=== PATIENT | female | born 1955 | race Caucasian/White ===

== ENCOUNTER 2020-05-15 07:34 | Outpatient (REF) | payer MEDICARE, MEDICAID, SELFPAY ==
[2020-05-15 08:37] LABS: MANUAL DIFF FLAG NO
[2020-05-15 08:42] LABS: Basophils Absolute Auto 0.1 X10*3/uL (0.0-0.2); Eosinophils Absolute Auto 0.4 X10*3/uL (0.0-0.4); Eosinophils Percent Auto 5.7 % (0-4); Hematocrit 41.5 % (37-47); Hemoglobin 13.3 g/dl (12.0-16.0); Imm Gran Abs Auto 0.01 X10*3/uL (0.00-0.03); Imm Gran Pct Auto 0.1 % (0.0-0.4); Lymphocytes Percent Auto 27.6 % (20-40); Mean Corpuscular Hemoglobin 27.2 pg (27.0-33.0); Mean Corpuscular Volume 84.9 fL (80-98); Mean Platelet Volume 10.8 fL (9.4-12.3); Monocytes Absolute Auto 0.7 X10*3/uL (0.1-1.2); Monocytes Percent Auto 9.4 % (2-11); Neutrophils Absolute Auto 4.1 X10*3/uL (2.0-8.3); Neutrophils Percent Auto 56.2 % (45-73); Platelet Count 333 X10*3/uL (160-400); Red Blood Count 4.89 X10*6/uL (4.20-5.50); Red Cell Distribution Width 13.7 % (11.0-16.0); White Blood Count 7.2 X10*3/uL (4.8-10.8)
[2020-05-15 09:14] LABS: Alanine Aminotransferase 14 U/L (0-31); Albumin Level 4.1 g/dL (3.5-5.0); Alkaline Phosphatase 132 U/L (39-117); Anion Gap 11 (12-20); Aspartate Amino Transferase 21 U/L (5-31); Bilirubin Total 0.4 mg/dL (0.0-1.0); Blood Urea Nitrogen 23 mg/dL (9-16); Calcium 9.3 mg/dL (8.4-10.2); Carbon Dioxide 32 mmol/L (22-29); Chloride 104 mmol/L (96-108); Cholesterol 180 mg/dL; Estimated Glomerular Filt Rate > 60; Glucose Fasting 104 mg/dL (60-99); HDL Cholesterol 56 mg/dL; LDL Cholesterol Calculated 95 mg/dl; Potassium 4.6 mmol/l (3.3-5.1); Sodium 142 mmol/L (135-145); Triglycerides 145 mg/dL
[2020-05-15 09:57] LABS: Folate 8.7 ng/mL (> or = 4.0); Vitamin B12 462 pg/mL (200-900)
== END 2020-05-15 07:35 | disposition home or self-care (01) ==
LOC: HO.LAB 07:34
PROVIDERS: Visit Provider Internal Medicine
DX: E78.00 Pure hypercholesterolemia, unspecified (principal); D51.0 Vitamin B12 deficiency anemia due to intrinsic factor deficiency
CPT/HCPCS: 36415; 80053; 80061; 82607; 82746; 85025

== ENCOUNTER 2020-05-23 07:40 | Outpatient (REF) | payer MEDICARE, MEDICAID, SELFPAY ==
[2020-05-23 09:40] LABS: MANUAL DIFF FLAG NO
[2020-05-23 09:41] LABS: Basophils Absolute Auto 0.1 X10*3/uL (0.0-0.2); Basophils Percent Auto 1.1 % (0-2); Eosinophils Absolute Auto 0.3 X10*3/uL (0.0-0.4); Eosinophils Percent Auto 4.1 % (0-4); Hematocrit 40.7 % (37-47); Hemoglobin 12.9 g/dl (12.0-16.0); Imm Gran Abs Auto 0.02 X10*3/uL (0.00-0.03); Imm Gran Pct Auto 0.2 % (0.0-0.4); Lymphocytes Absolute Auto 1.5 X10*3/uL (1.2-4.9); Lymphocytes Percent Auto 18.3 % (20-40); Mean Corpuscular HGB Conc 31.7 g/dl (31.0-35.0); Mean Corpuscular Volume 85.3 fL (80-98); Mean Platelet Volume 11.3 fL (9.4-12.3); Monocytes Absolute Auto 0.7 X10*3/uL (0.1-1.2); Monocytes Percent Auto 8.5 % (2-11); Neutrophils Absolute Auto 5.5 X10*3/uL (2.0-8.3); Neutrophils Percent Auto 67.8 % (45-73); Platelet Count 290 X10*3/uL (160-400); Red Blood Count 4.77 X10*6/uL (4.20-5.50); Red Cell Distribution Width 13.6 % (11.0-16.0); White Blood Count 8.1 X10*3/uL (4.8-10.8)
[2020-05-23 10:19] LABS: Alanine Aminotransferase 21 U/L (0-31); Anion Gap 14 (12-20); Aspartate Amino Transferase 26 U/L (5-31); Carbon Dioxide 27 mmol/L (22-29); Chloride 103 mmol/L (96-108); Estimated Glomerular Filt Rate > 60; Potassium 4.2 mmol/l (3.3-5.1); Sodium 140 mmol/L (135-145)
[2020-05-23 10:49] LABS: HIV AB/AG Nonreactive (Nonreactive); HIV Num 1 0.11 S/CO (0.00-0.99); ~HepC Num1 0.23 S/CO (0.00-0.79); ~Hepatitis C Antibody Nonreactive (Nonreactive)
[2020-05-23 10:54] LABS: Hepatitis B Surface Antigen Negative (Negative)
[2020-05-23 11:47] LABS: HBS Num1 9.99 mIU/mL (0-7.99)
[2020-05-23 12:02] LABS: HBS Num2 10.76 mIU/mL (0-7.99); HBS Num3 9.99 mIU/mL (0-7.99); ~Hepatitis B Surface Antibody GRAYZONE (Nonreactive)
== END 2020-05-23 07:41 | disposition home or self-care (01) ==
LOC: HO.LAB 07:40
PROVIDERS: PCP Internal Medicine; Visit Provider Internal Medicine Infectious Disease
DX: Z11.3 Encounter for screening for infections with a predominantly sexual mode of transmission (principal); Z11.4 Encounter for screening for human immunodeficiency virus [HIV]; Z11.1 Encounter for screening for respiratory tuberculosis; Z13.29 Encounter for screening for other suspected endocrine disorder
CPT/HCPCS: 36415; 80051; 82565; 84450; 84460; 85025; 86706; 86803; 87116; 87340; 87389

== ENCOUNTER → 2020-06-02 14:23 | Outpatient (REF) | payer MEDICARE, MEDICAID, SELFPAY ==
--- NOTE | 2020-06-02 14:37 | ECG_ITS ---
Test Reason : [facility]IOT[facility] Blood Pressure : / mmHG Vent. Rate : 064 BPM Atrial Rate : 064 BPM P-R Int : 160 ms QRS Dur : 082 ms QT Int : 396 ms P-R-T Axes : 073 052 062 degrees QTc Int : 408 ms Normal sinus rhythm Normal ECG When compared with ECG of 23-JAN-2018 07:59, No significant change was found Referred By: Lizz Courtney Electronically Signed By:PAUL ALEX MD
== END ==
LOC: HO.CARD 14:23
PROVIDERS: PCP Internal Medicine; Visit Provider Internal Medicine Infectious Disease
DX: Z13.6 Encounter for screening for cardiovascular disorders (principal); Z79.2 Long term (current) use of antibiotics
CPT/HCPCS: 93005

== ENCOUNTER 2020-07-12 09:31 | Outpatient (REF) | payer MEDICARE, MEDICAID, SELFPAY ==
[2020-07-12 10:06] LABS: MANUAL DIFF FLAG NO
[2020-07-12 10:09] LABS: Basophils Absolute Auto 0.1 X10*3/uL (0.0-0.2); Basophils Percent Auto 0.9 % (0-2); Eosinophils Absolute Auto 0.5 X10*3/uL (0.0-0.4); Eosinophils Percent Auto 8.5 % (0-4); Hematocrit 42.3 % (37-47); Hemoglobin 13.5 g/dl (12.0-16.0); Imm Gran Abs Auto 0.01 X10*3/uL (0.00-0.03); Imm Gran Pct Auto 0.2 % (0.0-0.4); Lymphocytes Absolute Auto 1.6 X10*3/uL (1.2-4.9); Lymphocytes Percent Auto 27.8 % (20-40); Mean Corpuscular HGB Conc 31.9 g/dl (31.0-35.0); Mean Corpuscular Hemoglobin 26.8 pg (27.0-33.0); Mean Corpuscular Volume 84.1 fL (80-98); Mean Platelet Volume 10.7 fL (9.4-12.3); Monocytes Absolute Auto 0.6 X10*3/uL (0.1-1.2); Monocytes Percent Auto 9.7 % (2-11); Neutrophils Percent Auto 52.9 % (45-73); Platelet Count 276 X10*3/uL (160-400); Red Blood Count 5.03 X10*6/uL (4.20-5.50); Red Cell Distribution Width 13.2 % (11.0-16.0); White Blood Count 5.7 X10*3/uL (4.8-10.8)
[2020-07-12 10:29] LABS: Alanine Aminotransferase 16 U/L (0-31); Aspartate Amino Transferase 24 U/L (5-31); Estimated Glomerular Filt Rate > 60; Glucose Fasting 100 mg/dL (60-99)
[2020-07-12 10:49] LABS: Thyroid Stimulating Hormone 1.98 uIU/mL (0.32-4.0)
== END 2020-07-12 09:32 | disposition home or self-care (01) ==
LOC: HO.LAB 09:31
PROVIDERS: PCP Internal Medicine; Visit Provider Internal Medicine Infectious Disease
DX: A31.0 Pulmonary mycobacterial infection (principal)
CPT/HCPCS: 36415; 82565; 82947; 84443; 84450; 84460; 85025

== ENCOUNTER 2020-07-21 14:58 | Outpatient (REF) | payer MEDICARE, MEDICAID, SELFPAY | END 2020-07-21 14:59 | disposition home or self-care (01) | LOC: HO.LAB 14:58 | PROVIDERS: PCP Internal Medicine; Visit Provider Internal Medicine Infectious Disease | DX: A31.0 Pulmonary mycobacterial infection (principal) | CPT/HCPCS: 87116 ==

== ENCOUNTER 2020-08-08 09:51 | Outpatient (REF) | payer MEDICARE, MEDICAID, SELFPAY | END 2020-08-08 09:52 | disposition home or self-care (01) | LOC: HO.LAB 09:51 | PROVIDERS: PCP Internal Medicine; Visit Provider Internal Medicine | DX: Z20.822 Contact with and (suspected) exposure to COVID-19 (principal) | CPT/HCPCS: 36415; C9803; U0003 ==

== ENCOUNTER 2020-09-13 08:20 | Outpatient (REF) | payer MEDICARE, MEDICAID, SELFPAY ==
[2020-09-13 11:03] LABS: Alanine Aminotransferase 110 U/L (0-31); Aspartate Amino Transferase 69 U/L (5-31); Estimated Glomerular Filt Rate > 60
[2020-09-15 04:25] LABS: Vitamin B12 449 pg/mL (200-900)
== END 2020-09-13 08:21 | disposition home or self-care (01) ==
LOC: HO.LAB 08:20
PROVIDERS: PCP Internal Medicine; Visit Provider Internal Medicine Infectious Disease
DX: A31.0 Pulmonary mycobacterial infection (principal)
CPT/HCPCS: 36415; 82565; 82607; 84450; 84460

== ENCOUNTER 2020-10-09 07:39 | Outpatient (REF) | payer MEDICARE, MEDICAID, SELFPAY ==
[2020-10-09 09:04] LABS: Basophils Absolute Auto 0.1 X10*3/uL (0.0-0.2); Eosinophils Absolute Auto 0.3 X10*3/uL (0.0-0.4); Hematocrit 41.8 % (37-47); Hemoglobin 13.5 g/dl (12.0-16.0); Imm Gran Abs Auto 0.01 X10*3/uL (0.00-0.03); Imm Gran Pct Auto 0.2 % (0.0-0.4); Lymphocytes Absolute Auto 0.5 X10*3/uL (1.2-4.9); Lymphocytes Percent Auto 9.8 % (20-40); MANUAL DIFF FLAG SCAN; Mean Corpuscular HGB Conc 32.3 g/dl (31.0-35.0); Mean Corpuscular Hemoglobin 26.4 pg (27.0-33.0); Mean Corpuscular Volume 81.6 fL (80-98); Monocytes Absolute Auto 0.5 X10*3/uL (0.1-1.2); Monocytes Percent Auto 10.4 % (2-11); Neutrophils Absolute Auto 3.5 X10*3/uL (2.0-8.3); Neutrophils Percent Auto 71.6 % (45-73); Platelet Count 326 X10*3/uL (160-400); Red Blood Count 5.12 X10*6/uL (4.20-5.50); Red Cell Distribution Width 14.6 % (11.0-16.0); SCAN SMEAR FLAG 1; White Blood Count 4.9 X10*3/uL (4.8-10.8)
[2020-10-09 09:36] LABS: SLIDE REVIEW VERIFIED
[2020-10-09 09:45] LABS: Alanine Aminotransferase 19 U/L (0-31); Albumin Level 4.4 g/dL (3.5-5.0); Alkaline Phosphatase 143 U/L (39-117); Anion Gap 13 (12-20); Aspartate Amino Transferase 25 U/L (5-31); Bilirubin Total 0.8 mg/dL (0.0-1.0); Blood Urea Nitrogen 16 mg/dL (9-16); Calcium 9.1 mg/dL (8.4-10.2); Carbon Dioxide 28 mmol/L (22-29); Chloride 103 mmol/L (96-108); Cholesterol 172 mg/dL; Estimated Glomerular Filt Rate > 60; Glucose Fasting 102 mg/dL (60-99); HDL Cholesterol 51 mg/dL; LDL Cholesterol Calculated 84 mg/dl; Potassium 4.5 mmol/L (3.3-5.1); Sodium 139 mmol/L (135-145); Total Protein 7.3 g/dL (6.5-8.0); Triglycerides 185 mg/dL
[2020-10-09 10:21] LABS: Folate 11.5 ng/mL (> or = 4.0); Vitamin B12 437 pg/mL (200-900)
== END 2020-10-09 07:40 | disposition home or self-care (01) ==
LOC: HO.LAB 07:39
PROVIDERS: PCP Internal Medicine; Visit Provider Internal Medicine
DX: D51.0 Vitamin B12 deficiency anemia due to intrinsic factor deficiency (principal); E78.00 Pure hypercholesterolemia, unspecified; E78.5 Hyperlipidemia, unspecified
CPT/HCPCS: 36415; 80053; 80061; 82607; 82746; 85025

== ENCOUNTER 2020-12-02 06:52 | Outpatient (REF) | payer MEDICARE, MEDICAID, SELFPAY ==
[2020-12-02 07:33] LABS: MANUAL DIFF FLAG NO
[2020-12-02 07:44] LABS: Eosinophils Absolute Auto 0.1 X10*3/uL (0.0-0.4); Eosinophils Percent Auto 3.2 % (0-4); Hematocrit 41.8 % (37-47); Hemoglobin 13.4 g/dl (12.0-16.0); Imm Gran Abs Auto 0.01 X10*3/uL (0.00-0.03); Imm Gran Pct Auto 0.2 % (0.0-0.4); Lymphocytes Absolute Auto 1.2 X10*3/uL (1.2-4.9); Lymphocytes Percent Auto 29.4 % (20-40); Mean Corpuscular HGB Conc 32.1 g/dl (31.0-35.0); Mean Corpuscular Hemoglobin 26.4 pg (27.0-33.0); Mean Corpuscular Volume 82.4 fL (80-98); Mean Platelet Volume 10.4 fL (9.4-12.3); Monocytes Absolute Auto 0.5 X10*3/uL (0.1-1.2); Monocytes Percent Auto 12.8 % (2-11); Neutrophils Absolute Auto 2.2 X10*3/uL (2.0-8.3); Neutrophils Percent Auto 53.4 % (45-73); Platelet Count 295 X10*3/uL (160-400); Red Blood Count 5.07 X10*6/uL (4.20-5.50); Red Cell Distribution Width 14.6 % (11.0-16.0); White Blood Count 4.1 X10*3/uL (4.8-10.8)
[2020-12-02 07:53] LABS: Alanine Aminotransferase 19 U/L (0-31); Albumin Level 4.3 g/dL (3.5-5.0); Alkaline Phosphatase 110 U/L (39-117); Aspartate Amino Transferase 22 U/L (5-31); Bilirubin Total 0.4 mg/dL (0.0-1.0); Estimated Glomerular Filt Rate > 60; Phosphorus 3.7 mg/dL (2.7-4.5)
== END 2020-12-02 06:53 | disposition home or self-care (01) ==
LOC: HO.LAB 06:52
PROVIDERS: PCP Internal Medicine; Visit Provider Internal Medicine Infectious Disease
DX: A31.2 Disseminated mycobacterium avium-intracellulare complex (DMAC) (principal)
CPT/HCPCS: 36415; 82040; 82247; 82565; 84075; 84100; 84450; 84460; 85025

== ENCOUNTER 2021-01-20 11:28 | Outpatient (REF) | payer MEDICARE, MEDICAID, SELFPAY ==
[2021-01-21 08:46] LABS: Lyme Abs Screen <0.90 index
== END 2021-01-20 11:29 | disposition home or self-care (01) ==
LOC: HO.HMGCLDS 11:28
PROVIDERS: PCP Internal Medicine; Visit Provider Nurse Practitioner Family
DX: T14.8XXA Other injury of unspecified body region, initial encounter (principal); W57.XXXA Bitten or stung by nonvenomous insect and other nonvenomous arthropods, initial encounter
CPT/HCPCS: 36415; 86617; 86618

== ENCOUNTER 2021-02-13 06:50 | Outpatient (REF) | payer MEDICARE, MEDICAID, SELFPAY ==
[2021-02-13 07:37] LABS: MANUAL DIFF FLAG NO
[2021-02-13 07:42] LABS: Basophils Percent Auto 0.6 % (0-2); Eosinophils Absolute Auto 0.2 X10*3/uL (0.0-0.4); Eosinophils Percent Auto 6.2 % (0-4); Hematocrit 41.1 % (37-47); Hemoglobin 13.5 g/dl (12.0-16.0); Imm Gran Abs Auto 0.02 X10*3/uL (0.00-0.03); Imm Gran Pct Auto 0.6 % (0.0-0.4); Lymphocytes Absolute Auto 1.2 X10*3/uL (1.2-4.9); Lymphocytes Percent Auto 34.9 % (20-40); Mean Corpuscular HGB Conc 32.8 g/dl (31.0-35.0); Mean Corpuscular Hemoglobin 26.6 pg (27.0-33.0); Mean Corpuscular Volume 81.1 fL (80-98); Mean Platelet Volume 10.5 fL (9.4-12.3); Monocytes Absolute Auto 0.7 X10*3/uL (0.1-1.2); Monocytes Percent Auto 18.3 % (2-11); Neutrophils Absolute Auto 1.4 X10*3/uL (2.0-8.3); Neutrophils Percent Auto 39.4 % (45-73); Platelet Count 258 X10*3/uL (160-400); Red Blood Count 5.07 X10*6/uL (4.20-5.50); Red Cell Distribution Width 14.5 % (11.0-16.0); White Blood Count 3.6 X10*3/uL (4.8-10.8)
[2021-02-13 08:02] LABS: Alanine Aminotransferase 13 U/L (0-31); Albumin Level 4.4 g/dL (3.5-5.0); Alkaline Phosphatase 114 U/L (39-117); Anion Gap 12 (12-20); Aspartate Amino Transferase 27 U/L (5-31); Bilirubin Total 0.4 mg/dL (0.0-1.0); Blood Urea Nitrogen 18 mg/dL (9-16); Calcium 9.8 mg/dL (8.4-10.2); Carbon Dioxide 27 mmol/L (22-29); Chloride 106 mmol/L (96-108); Cholesterol 159 mg/dL; Estimated Glomerular Filt Rate > 60; Glucose Fasting 102 mg/dL (60-99); HDL Cholesterol 48 mg/dL; LDL Cholesterol Calculated 87 mg/dl; Potassium 4.4 mmol/L (3.3-5.1); Sodium 141 mmol/L (135-145); Total Protein 7.4 g/dL (6.5-8.0); Triglycerides 123 mg/dL
[2021-02-13 09:51] LABS: Folate 17.4 ng/mL (> or = 4.0); Vitamin B12 375 pg/mL (200-900)
== END 2021-02-13 06:51 | disposition home or self-care (01) ==
LOC: HO.LAB 06:50
PROVIDERS: PCP Internal Medicine; Visit Provider Internal Medicine
DX: E78.5 Hyperlipidemia, unspecified (principal); E78.00 Pure hypercholesterolemia, unspecified; D64.9 Anemia, unspecified; D51.0 Vitamin B12 deficiency anemia due to intrinsic factor deficiency
CPT/HCPCS: 36415; 80053; 80061; 82607; 82746; 85025

== ENCOUNTER 2021-03-24 13:43 | Outpatient (REF) | payer OTHER, MEDICAID, SELFPAY ==
--- NOTE | ~2021-03-24 | MM_ITS ---
EXAMINATION: MM SCREENING DIGITAL BREAST TOMOSYNTHESIS, BILATERAL CLINICAL INFORMATION: Screening. Asymptomatic. The lifetime risk of breast cancer based on the Tyrer-Cuzick Model is 9%. COMPARISON: Mammography: 03/18/2020, 10/20/2018, 10/06/2017, 09/23/2016, 09/22/2015 TECHNIQUE: Digital breast tomosynthesis is performed in both the craniocaudal and mediolateral oblique views along with computer-aided detection (CAD). Synthesized 2D images are generated from the tomosynthesis. FINDINGS: There are scattered areas of fibroglandular density (ACR BI-RADS breast composition Category b). Parenchymal pattern is similar to prior studies. There is no developing density or interval mass or architectural abnormality. There is a small stable parenchymal asymmetry central left breast on MLO view similar to the prior studies. The axilla and skin contours are unremarkable. MM/MM tomosynthesis screening BI IMPRESSION: No mammographic evidence of malignancy. ASSESSMENT: BI-RADS 2: Benign RECOMMENDATION: Routine annual mammography screening. This patient's information was entered into a reminder system with a target due date for their next mammogram.
== END 2021-03-24 13:44 | disposition home or self-care (01) ==
LOC: HO.MAMMO 13:43
PROVIDERS: Visit Provider Internal Medicine
DX: Z12.31 Encounter for screening mammogram for malignant neoplasm of breast (principal)
CPT/HCPCS: 77063; 77067

== ENCOUNTER 2021-04-14 08:47 | Outpatient (REF) | payer OTHER, MEDICAID, SELFPAY ==
[2021-04-17 20:52] LABS: HPV mRNA E6/E7 rflx Not Detected (Not Detected)
== END 2021-04-14 08:48 | disposition home or self-care (01) ==
LOC: HO.LAB 08:47
PROVIDERS: Visit Provider Advanced Practice Midwife
DX: Z01.411 Encounter for gynecological examination (general) (routine) with abnormal findings (principal); Z11.51 Encounter for screening for human papillomavirus (HPV); B36.9 Superficial mycosis, unspecified
CPT/HCPCS: 87624; 88142

== ENCOUNTER 2021-06-24 07:36 | Outpatient (REF) | payer MEDICARE, MEDICAID, SELFPAY ==
[2021-06-24 08:41] LABS: Alanine Aminotransferase 18 U/L (0-31); Albumin Level 4.3 g/dL (3.5-5.0); Alkaline Phosphatase 126 U/L (39-117); Anion Gap 11 (12-20); Aspartate Amino Transferase 23 U/L (5-31); Bilirubin Total 0.5 mg/dL (0.0-1.0); Blood Urea Nitrogen 13 mg/dL (9-16); Calcium 9.9 mg/dL (8.4-10.2); Carbon Dioxide 29 mmol/L (22-29); Chloride 106 mmol/L (96-108); Cholesterol 171 mg/dL; Estimated Glomerular Filt Rate > 60; Glucose Fasting 112 mg/dL (60-99); HDL Cholesterol 51 mg/dL; LDL Cholesterol Calculated 91 mg/dl; Potassium 4.2 mmol/L (3.3-5.1); Sodium 142 mmol/L (135-145); Total Protein 7.3 g/dL (6.5-8.0); Triglycerides 147 mg/dL
[2021-06-29 14:51] LABS: Vitamin D 25-OH, D2 <4 ng/mL; Vitamin D 25-OH, D3 35 ng/mL; Vitamin D 25-OH, Total 35 ng/mL (30-100)
== END 2021-06-24 07:37 | disposition home or self-care (01) ==
LOC: HO.LAB 07:36
PROVIDERS: Visit Provider Internal Medicine
DX: E78.5 Hyperlipidemia, unspecified (principal); E55.9 Vitamin D deficiency, unspecified; K21.9 Gastro-esophageal reflux disease without esophagitis
CPT/HCPCS: 36415; 80053; 80061; 82306

== ENCOUNTER 2021-12-16 09:36 | Outpatient (REF) | payer OTHER, MEDICAID, SELFPAY ==
[2021-12-16 10:22] LABS: COVID-19 Test Negative (Negative); IDNOW Serial# 08D9AD1C
== END 2021-12-16 09:37 | disposition home or self-care (01) ==
LOC: HO.LAB 09:36
PROVIDERS: Visit Provider Internal Medicine
DX: Z20.822 Contact with and (suspected) exposure to COVID-19 (principal)
CPT/HCPCS: 87635; C9803

== ENCOUNTER 2022-01-11 06:29 | Outpatient (REF) | payer OTHER, SELFPAY ==
[2022-01-11 06:54] LABS: MANUAL DIFF FLAG NO
[2022-01-11 07:35] LABS: Basophils Absolute Auto 0.1 X10*3/uL (0.0-0.2); Eosinophils Absolute Auto 0.5 X10*3/uL (0.0-0.4); Eosinophils Percent Auto 6.5 % (0-4); Hematocrit 40.3 % (37.0-47.0); Hemoglobin 12.7 g/dl (12.0-16.0); Imm Gran Abs Auto 0.02 X10*3/uL (0.00-0.03); Imm Gran Pct Auto 0.3 % (0.0-0.4); Lymphocytes Percent Auto 27.6 % (20-40); Mean Corpuscular HGB Conc 31.5 g/dl (31.0-35.0); Mean Corpuscular Hemoglobin 26.1 pg (27.0-33.0); Mean Corpuscular Volume 82.9 fL (80.0-98.0); Mean Platelet Volume 10.6 fL (9.4-12.3); Monocytes Absolute Auto 0.5 X10*3/uL (0.1-1.2); Monocytes Percent Auto 7.3 % (2-11); Neutrophils Absolute Auto 4.1 x10*3/uL (2.0-8.3); Neutrophils Percent Auto 57.3 % (45-73); Platelet Count 332 X10*3/uL (160-400); Red Blood Count 4.86 X10*6/uL (4.20-5.50); Red Cell Distribution Width 13.9 % (11.0-16.0); White Blood Count 7.2 X10*3/uL (4.8-10.8)
[2022-01-11 08:28] LABS: Alanine Aminotransferase 14 U/L (0-31); Albumin Level 4.2 g/dL (3.5-5.0); Alkaline Phosphatase 121 U/L (39-117); Anion Gap 12 (12-20); Aspartate Amino Transferase 20 U/L (5-31); Bilirubin Total 0.5 mg/dL (0.0-1.0); Blood Urea Nitrogen 18 mg/dL (9-16); Calcium 9.5 mg/dL (8.4-10.2); Carbon Dioxide 27 mmol/L (22-29); Chloride 105 mmol/L (96-108); Cholesterol 152 mg/dL; Estimated Glomerular Filt Rate > 60; Glucose Fasting 97 mg/dL (60-99); HDL Cholesterol 47 mg/dL; LDL Cholesterol Calculated 78 mg/dl; Potassium 4.4 mmol/L (3.3-5.1); Sodium 140 mmol/L (135-145); Total Protein 7.1 g/dL (6.5-8.0); Triglycerides 137 mg/dL
[2022-01-15 15:26] LABS: Vitamin D 25-OH, D2 <4 ng/mL; Vitamin D 25-OH, D3 38 ng/mL; Vitamin D 25-OH, Total 38 ng/mL (30-100)
== END 2022-01-11 06:30 | disposition home or self-care (01) ==
LOC: HO.LAB 06:29
PROVIDERS: PCP Internal Medicine; Visit Provider Internal Medicine
DX: E55.9 Vitamin D deficiency, unspecified (principal); D72.819 Decreased white blood cell count, unspecified; J43.1 Panlobular emphysema; E78.5 Hyperlipidemia, unspecified
CPT/HCPCS: 36415; 80053; 80061; 82306; 85025

== ENCOUNTER 2022-03-26 10:18 | Outpatient (REF) | payer OTHER, SELFPAY ==
--- NOTE | ~2022-03-26 | MM_ITS ---
EXAMINATION: MM SCREENING DIGITAL BREAST TOMOSYNTHESIS, BILATERAL CLINICAL INFORMATION: Screening. Asymptomatic. The lifetime risk of breast cancer based on the Tyrer-Cuzick Model is 9%. COMPARISON: Mammography: 03/24/2021, 03/18/2020, 10/20/2018 TECHNIQUE: Digital breast tomosynthesis is performed in both the craniocaudal and mediolateral oblique views along with computer-aided detection (CAD). Synthesized 2D images are generated from the tomosynthesis. FINDINGS: There are scattered areas of fibroglandular density (ACR BI-RADS breast composition Category b). There are no significant masses, abnormal calcifications, or other abnormalities. Parenchymal pattern is similar to prior studies. There is no developing density or architectural abnormality. The axilla and skin contours are unremarkable. No significant changes. MM/MM tomosynthesis screening BI IMPRESSION: No mammographic evidence of malignancy. ASSESSMENT: BI-RADS 1: Negative RECOMMENDATION: Routine annual mammography screening. This patient's information was entered into a reminder system with a target due date for their next mammogram.
== END 2022-03-26 10:19 | disposition home or self-care (01) ==
LOC: HO.MAMMO 10:18
PROVIDERS: PCP Internal Medicine; Visit Provider Internal Medicine
DX: Z12.31 Encounter for screening mammogram for malignant neoplasm of breast (principal)
CPT/HCPCS: 77063; 77067

== ENCOUNTER 2022-05-07 10:42 | Outpatient (REF) | payer OTHER, MEDICAID, SELFPAY ==
--- NOTE | ~2022-05-07 | MM_ITS ---
EXAMINATION: BONE DENSITOMETRY CLINICAL INDICATION: Menopause. COMPARISON: Baseline BD dated 10/06/2017. TECHNIQUE: Using a [employer] DXA System (software version: 13.1) manufactured by [employer], dual-energy x-ray absorptiometry was performed of the lumbar spine and left hip. The images are of good technical quality. Summary results are attached. FINDINGS: AP SPINE L1-L4 (excluding L3): The data of L1-L4 has been changed to exclude the L3 vertebral body, because degenerative changes at this level may cause overestimation of lumbar spine density. Current: BMD 1.258 g/cm2, Z-score 2.3, T-score 0.7, normal, 2.0% increase from baseline (<5% change is not significant). Baseline: BMD 1.233 g/cm2. LEFT FEMUR, NECK: Current: BMD 0.934 g/cm2, Z-score 0.7, T-score -0.8, normal. Baseline: BMD 1.085 g/cm2. LEFT FEMUR, TOTAL: Current: BMD 0.996 g/cm2, Z-score 1.2, T-score -0.1, normal, 2.8% increase from baseline (<5% change is not significant). Baseline: BMD 0.969 g/cm2. IDENTIFIED RISK FACTORS: Menopause. HISTORY OF FRACTURE: None listed. MEDICATIONS: Calcium, vitamin D. MM/XR DEXA axial skeleton IMPRESSION: 1. DIAGNOSIS: Normal bone density based on the lowest T-score value of -0.8 in the femoral neck applying World Health Organization criteria. 2. 10-YEAR FRACTURE RISK PREDICTION, FRAX: According to the guidelines, FRAX calculation should only be performed on patients in the osteopenia bone density category. Therefore, FRAX was not performed on this patient. 3. Treatment Recommendations: NOF guidelines recommend consideration for treatment in postmenopausal women and men age 50 and older presenting with the following: -A hip or vertebral (clinical or morphometric) fracture. -T-score less than or equal to -2.5 at the femoral neck or spine after appropriate evaluation to exclude secondary causes. -Low bone mass at the hip or spine and a 10-year fracture probability by FRAX of greater than or equal to 3% for hip fracture or greater than or equal to 20% for major osteoporotic fracture based on the [place] adapted WHO algorithm. 4. Other Recommendations: All treatment decisions require clinical judgment and consideration of individual patient factors, including patient preferences, comorbidities, previous drug use, risk factors not captured in the FRAX model (e.g. frailty, falls, vitamin D deficiency, increased bone turnover, interval significant decline in bone density) and possible under or overestimation of fracture risk by FRAX. FUTURE SCAN RECOMMENDATION: People with diagnosed cases of osteoporosis or at high risk for fracture should have regular bone mineral density tests. For patients eligible for Medicare, routine testing is allowed once every 2 years. The testing frequency can be increased to one year for patients who have rapidly progressing disease, those who are receiving or discontinuing medical therapy to restore bone mass, or have additional risk factors.
== END 2022-05-07 10:43 | disposition home or self-care (01) ==
LOC: HO.MAMMO 10:42
PROVIDERS: PCP Internal Medicine; Visit Provider Internal Medicine
DX: Z13.820 Encounter for screening for osteoporosis (principal); Z78.0 Asymptomatic menopausal state
CPT/HCPCS: 77080

== ENCOUNTER 2022-12-22 08:32 | Outpatient (REF) | payer MEDICARE, MEDICAID, SELFPAY ==
[2022-12-22 10:43] LABS: Alanine Aminotransferase 13 U/L (0-31); Albumin Level 4.1 g/dL (3.5-5.0); Alkaline Phosphatase 114 U/L (39-117); Anion Gap 12 (12-20); Aspartate Amino Transferase 21 U/L (5-31); Bilirubin Total 0.5 mg/dL (0.0-1.0); Blood Urea Nitrogen 17 mg/dL (9-16); Calcium 9.6 mg/dL (8.4-10.2); Carbon Dioxide 26 mmol/L (22-29); Chloride 108 mmol/L (96-108); Cholesterol 152 mg/dL; Estimated Glomerular Filt Rate > 60; Glucose Fasting 96 mg/dL (60-99); HDL Cholesterol 45 mg/dL; LDL Cholesterol Calculated 80 mg/dl; Potassium 3.9 mmol/L (3.3-5.1); Sodium 142 mmol/L (135-145); Total Protein 6.9 g/dL (6.5-8.0); Triglycerides 138 mg/dL
[2022-12-22 11:14] LABS: Folate 11.6 ng/mL (> or = 4.0); Vitamin B12 558 pg/mL (200-900); Vitamin D 25-OH Total 46.6 ng/mL (>30)
== END 2022-12-22 08:33 | disposition home or self-care (01) ==
LOC: HO.LAB 08:32
PROVIDERS: PCP Internal Medicine; Visit Provider Internal Medicine
DX: E78.5 Hyperlipidemia, unspecified (principal); E53.8 Deficiency of other specified B group vitamins; E55.9 Vitamin D deficiency, unspecified; E78.00 Pure hypercholesterolemia, unspecified
CPT/HCPCS: 36415; 80053; 80061; 82306; 82607; 82746

== ENCOUNTER 2023-01-07 09:27 | Outpatient (REF) | payer MEDICARE, MEDICAID, SELFPAY ==
--- NOTE | ~2023-01-07 | XR_ITS ---
EXAMINATION: XR KNEE, LEFT CLINICAL INFORMATION: Pain COMPARISON: None available. TECHNIQUE: Two views of the left knee. FINDINGS: Bone alignment is normal. No fracture or dislocation. Normal femoral tibial joints. Osteophyte patellofemoral joint. Osteophyte quadriceps tendon insertion to the patella. Small joint effusion. XR/XR knee LT 2V IMPRESSION: Degenerative changes of the patella.
--- NOTE | ~2023-01-07 | XR_ITS ---
EXAMINATION: XR ANKLE, LEFT CLINICAL INFORMATION: Pain COMPARISON: None available. TECHNIQUE: AP, lateral, and mortise views of the left ankle. FINDINGS: Bone alignment is normal. No fracture or dislocation. Normal ankle mortise. Small calcaneal spur at the Achilles tendon insertion. Soft tissues are otherwise normal. XR/XR ankle LT 2V IMPRESSION: No acute findings.
== END 2023-01-07 09:28 | disposition home or self-care (01) ==
LOC: HO.XRAY 09:27
PROVIDERS: PCP Internal Medicine; Visit Provider Internal Medicine
DX: M25.562 Pain in left knee (principal); M25.572 Pain in left ankle and joints of left foot
CPT/HCPCS: 73560; 73600

== ENCOUNTER 2023-02-11 10:39 | Outpatient (REF) | payer MEDICARE, MEDICAID, SELFPAY ==
--- NOTE | ~2023-02-11 | XR_ITS ---
EXAMINATION: XR KNEE AP STANDING CLINICAL INFORMATION: Pain COMPARISON: 01/07/23 TECHNIQUE: AP bilateral standing view of the knees was obtained. Patellar view left knee FINDINGS: No acute fracture, subluxation or focal lesion. There is mild narrowing of the medial compartment on the right. There are proliferative osteophytes on the right involving all 3 compartments. There are some osteophytes involving the medial and lateral margin of the left patella. XR/XR knee standing BI IMPRESSION: No acute fracture or subluxation. Mild osteoarthritis.
--- NOTE | ~2023-02-11 | XR_ITS ---
EXAMINATION: XR KNEE AP STANDING CLINICAL INFORMATION: Pain COMPARISON: 01/07/23 TECHNIQUE: AP bilateral standing view of the knees was obtained. Patellar view left knee FINDINGS: No acute fracture, subluxation or focal lesion. There is mild narrowing of the medial compartment on the right. There are proliferative osteophytes on the right involving all 3 compartments. There are some osteophytes involving the medial and lateral margin of the left patella. XR/XR knee LT 1V IMPRESSION: No acute fracture or subluxation. Mild osteoarthritis.
== END 2023-02-11 10:40 | disposition home or self-care (01) ==
LOC: HO.HOSX 10:39
PROVIDERS: Visit Provider Physician Assistant
DX: M17.12 Unilateral primary osteoarthritis, left knee (principal)
CPT/HCPCS: 73560; 73565; 99202

== ENCOUNTER 2023-02-11 10:41 | Outpatient (AMB) | payer MEDICARE, MEDICAID, SELFPAY ==
--- NOTE | 2023-02-11 10:56 | MHC.OFFVIS ---
Intake Intake Visit Reasons: New pt - B/L knee pain Intake Note: Gabbie is a 67 year old female who presents today as a new patient with complaints of b/l knee pain. Patient reports her left knee is worse than the right. Hx of injections with no relief. Hx of PT with no relief. She states her pain is more focused on the knee cap. Pain is worse when using stairs, standing and walking. Allergies No Known Allergies Allergy (Verified 02/11/23 11:00) HPI New pt - B/L knee pain HPI Details 67-year-old female, who is Albanian speaking, presents in the office today, as a new patient, for an evaluation of bilateral knee pain. The patient reports her left knee is worse then her right knee. She states her pain is located more on the knee cap. She claims the pain is worse when using stairs, standing, and ambulating. The patient states after she was seen 2 months ago she began to notice bilateral foot edema. Patient has a history of cortisone injections with no relief. Patient has a history of physical therapy with no relief. She confirms she only attended 2-3 sessions. [facility] Medical History Emphysema lung GERD (gastroesophageal reflux disease) KEI (mycobacterium avium-intracellulare) Oral thrush Pernicious anemia Pure hypercholesterolemia Severe asthma Skin lesion Vaginal pruritus Surgical History History of section History of cholecystectomy History of tonsillectomy Family History Father Diabetes Hypertension Stroke Mother Diabetes Hypertension Breast cancer, Onset Age: 69 Status post mastectomy Son No problems noted. Family/Other FH: mental illness Social History Household Members: None Household Members Other:: Housing: Apartment Alcohol intake: never Patient Tobacco Use Status: Never used Tobacco e-Cigarette/Vaping Use: Never Used Second Hand Smoke Exposure: No service: No Current occupational status: retired Cognitive needs: No Hearing needs: No Vision needs: No Female Reproductive History Menstrual Age of Menarche: 12 Review of Systems Const All systems reviewed & are unremarkable except as noted in HPI and below Physical Exam Const General: cooperative and no acute distress Orientation/consciousness: patient oriented x3 Resp Effort & Inspection: normal respiratory effort and able to speak in complete sentences Cardio Peripheral pulses: Peripheral pulses 2+ throughout Neuro General: patient oriented x3 Extrem Other: Left knee: Normal to inspection. No ecchymosis, erythema, or joint effusion. Full knee extension and flexion. NVI. Psych Mental Status: mental status grossly normal Assessment & Plan Assessment & Plan (1) Osteoarthritis of left knee: Code(s): M17.12 - Unilateral primary osteoarthritis, left knee Plan Ms. Hill Grewal is a 67-year-old female, who is Albanian speaking, presents in the office today, as a new patient, for an evaluation of bilateral knee pain. The patient reports her left knee is worse then her right knee. She states her pain is located more on the knee cap. She claims the pain is worse when using stairs, standing, and ambulating. The patient states after she was seen 2 months ago she began to notice bilateral foot edema. Patient has a history of cortisone injections with no relief. Patient has a history of physical therapy with no relief. She confirms she only attended 2-3 sessions. I discussed the role of Gel injection verses a nerve block. She would like to move forward with Gel injections at this time. The office will petition the insurance for Gel approval. Follow up will be after the office obtains approval for Gel injections, or sooner if needed. I instructed the patient to follow up with her PCP for further evaluation of her feet. She states she was told by her PCP to present to the ED. X-rays of the left knee which were obtained while in the office today and were reviewed by me, Karen Boland PA-C, revealed no evidence of acute fracture or dislocation. Osteoarthritis left knee was present. Orders: Orders XR knee LT 1V Today M25.569 - Pain in unspecified knee XR knee standing BI Today M25.569 - Pain in unspecified knee Patient Instructions: Scribed for Karen Boland PA-C by Katarina Low medical equipment repair technician, on 02/11/2023 at 10:44 am, EST. Your attestation Coding Level of Care Code New Pt Level 3 (52103) Diagnoses Osteoarthritis of left knee M17.12
== END 2023-02-11 11:16 | disposition home or self-care (01) ==
PROVIDERS: PCP Internal Medicine; Visit Provider Physician Assistant
DX: M17.12 Unilateral primary osteoarthritis, left knee (principal); M25.561 Pain in right knee; M25.562 Pain in left knee
CPT/HCPCS: 99203

== ENCOUNTER 2023-03-17 13:43 | Outpatient (AMB) | payer MEDICARE, MEDICAID, SELFPAY ==
--- NOTE | 2023-03-17 13:50 | A.OFFVIS_ITS ---
Intake Vital Signs 03/17/23 13:51 Height 4 ft 9 in Weight 146 lb BMI 31.6 Intake Visit Reasons: OV - B/L Knee Durolane Gel Injection Intake Note: Gabbie is a 67 year old female who presents today for her bilateral knee Durolane gel injections. Allergies No Known Allergies Allergy (Verified 03/17/23 13:51) HPI OV - B/L Knee Durolane Gel Injection HPI Details 67-year-old female, who is [place] speaking, presents in the office today for a follow up of bilateral knee pain and her Durolane Gel injection in the bilateral knees. [facility] Medical History Emphysema lung GERD (gastroesophageal reflux disease) KEI (mycobacterium avium-intracellulare) Oral thrush Pernicious anemia Pure hypercholesterolemia Severe asthma Skin lesion Vaginal pruritus Surgical History History of section History of cholecystectomy History of tonsillectomy Family History Father Diabetes Hypertension Stroke Mother Diabetes Hypertension Breast cancer, Onset Age: 69 Status post mastectomy Son No problems noted. Family/Other FH: mental illness Social History Household Members: None Household Members Other:: Housing: Apartment Alcohol intake: never Patient Tobacco Use Status: Never used Tobacco e-Cigarette/Vaping Use: Never Used Second Hand Smoke Exposure: No service: No Current occupational status: retired Cognitive needs: No Hearing needs: No Vision needs: No Female Reproductive History Menstrual Age of Menarche: 12 Review of Systems Const All systems reviewed & are unremarkable except as noted in HPI and below Physical Exam Vital Signs: BMI result Body Mass Index 31.6 Const General: cooperative, healthy appearing and no acute distress Resp Effort & Inspection: normal respiratory effort and able to speak in complete sentences Cardio Rate: regular rate Peripheral pulses: Peripheral pulses 2+ throughout GI Palpation (GI): Soft to palpation Skin Lesions: no lesions Rashes: no rashes Extrem Other: Bilateral knees: Normal to inspection. No ecchymosis, erythema, or joint effusion. Full knee extension and flexion. NVI. Office Procedures Joint Injection/Drain Joint Injection/Drain Primary Site: right knee Secondary Site: left knee Prep: site was prepped using aseptic technique, ethochloride spray was applied and injection warnings given Injected: in the joint (Durolane ) Approach Used: anterolateral Procedure: The patient tolerated the procedure well, but had some pain with the injection and there was some relief with the local anesthesia Coding - Large joint Procedure code (CPT) selection complete Results Reviewed Results Reviewed: 03/17/23 13:49 Hyaluronate Sodium, Stabilized [Durolane] 60 mg INTRAARTIC .Roobiq-MED ONE Assessment & Plan Assessment & Plan (1) Osteoarthritis of left knee: Code(s): M17.12 - Unilateral primary osteoarthritis, left knee (2) Osteoarthritis of right knee: Code(s): M17.11 - Unilateral primary osteoarthritis, right knee Plan Ms. Hill Grewal is a 67-year-old female, who is [place] speaking, presents in the office today for a follow up of bilateral knee pain and her Durolane Gel injection in the bilateral knees. The patient was offered a Durolane injection in the bilateral knees. The patient was explained the risk, benefits, and alternatives to receiving this injection. After receiving consent for the injection, the patient had the procedure done while in office today. The patient tolerated the procedure well with no complications. Follow up will be PRN, or sooner if needed. Patient Instructions: Scribed for Karen Boland PA-C by Katarina Low senior medical writer, on 03/17/2023 at 1:45 pm, EST. Coding Level of Care Code Procedure Only Diagnoses Osteoarthritis of left knee M17.12 Osteoarthritis of right knee M17.11 CPT Codes Coding - 07849 Large joint: 16428 - Large joint ([id number])
[2023-03-17 13:51] VITALS: BMI 31.6
== END 2023-03-17 14:07 | disposition home or self-care (01) ==
PROVIDERS: PCP Internal Medicine; Visit Provider Physician Assistant
DX: M17.0 Bilateral primary osteoarthritis of knee (principal)
CPT/HCPCS: 20610

== ENCOUNTER → 2023-03-17 13:43 | Outpatient (BNVA) | payer MEDICARE, MEDICAID, SELFPAY | PROVIDERS: PCP Internal Medicine; Visit Provider Physician Assistant | DX: M17.0 Bilateral primary osteoarthritis of knee (principal) | CPT/HCPCS: 20610; J7318 ==

== ENCOUNTER 2023-04-08 09:32 | Outpatient (REF) | payer OTHER, MEDICAID, SELFPAY ==
--- NOTE | ~2023-04-08 | MM_ITS ---
EXAMINATION: MM SCREENING DIGITAL BREAST TOMOSYNTHESIS, BILATERAL CLINICAL INFORMATION: Screening. Asymptomatic. COMPARISON: Mammography: This study is compared with prior exams dating back to 2017. TECHNIQUE: Digital breast tomosynthesis is performed in both the craniocaudal and mediolateral oblique views along with computer-aided detection (CAD). Synthesized 2D images are generated from the tomosynthesis. FINDINGS: The breasts are almost entirely fatty (ACR BI-RADS breast composition Category a). There are no significant masses, abnormal calcifications, or other abnormalities. MM/MM tomosynthesis screening BI IMPRESSION: No mammographic evidence of malignancy. ASSESSMENT: BI-RADS BI-RADS 1 - Negative RECOMMENDATION: Routine annual mammography screening. 1 year F/U This examination should not preclude the clinical evaluation of a suspicious palpable abnormality. This patient's information was entered into a reminder system with a target due date for their next mammogram.
== END 2023-04-08 09:33 | disposition home or self-care (01) ==
LOC: HO.MAMMO 09:32
PROVIDERS: PCP Internal Medicine; Visit Provider Internal Medicine
DX: Z12.31 Encounter for screening mammogram for malignant neoplasm of breast (principal)
CPT/HCPCS: 77063; 77067

== ENCOUNTER → 2023-04-08 10:00 | Outpatient (BNV) | payer OTHER, MEDICAID, SELFPAY | PROVIDERS: PCP Internal Medicine; Visit Provider Radiology Diagnostic Radiology | DX: Z12.31 Encounter for screening mammogram for malignant neoplasm of breast (principal) | CPT/HCPCS: 77063; 77067 ==

== ENCOUNTER 2023-04-19 08:05 | Outpatient (REF) | payer OTHER, SELFPAY ==
[2023-04-19 08:18] LABS: MANUAL DIFF FLAG NO
[2023-04-19 09:00] LABS: Basophils Absolute Auto 0.1 X10*3/uL (0.0-0.2); Basophils Percent Auto 1.2 % (0-2); Eosinophils Absolute Auto 0.7 X10*3/uL (0.0-0.4); Eosinophils Percent Auto 8.5 % (0-4); Hematocrit 41.6 % (37.0-47.0); Hemoglobin 13.2 g/dl (12.0-16.0); Imm Gran Abs Auto 0.02 X10*3/uL (0.00-0.03); Imm Gran Pct Auto 0.3 % (0.0-0.4); Lymphocytes Absolute Auto 2.2 X10*3/uL (1.2-4.9); Lymphocytes Percent Auto 28.5 % (20-40); Mean Corpuscular HGB Conc 31.7 g/dl (31.0-35.0); Mean Corpuscular Hemoglobin 27.1 pg (27.0-33.0); Mean Corpuscular Volume 85.4 fL (80.0-98.0); Mean Platelet Volume 10.4 fL (9.4-12.3); Monocytes Absolute Auto 0.7 X10*3/uL (0.1-1.2); Monocytes Percent Auto 8.6 % (2-11); Neutrophils Absolute Auto 4.1 x10*3/uL (2.0-8.3); Neutrophils Percent Auto 52.9 % (45-73); Platelet Count 343 X10*3/uL (160-400); Red Blood Count 4.87 X10*6/uL (4.20-5.50); Red Cell Distribution Width 13.6 % (11.0-16.0); White Blood Count 7.7 X10*3/uL (4.8-10.8)
[2023-04-19 09:37] LABS: Alanine Aminotransferase 12 U/L (0-31); Albumin Level 4.2 g/dL (3.5-5.0); Alkaline Phosphatase 114 U/L (39-117); Anion Gap 14 (12-20); Aspartate Amino Transferase 19 U/L (5-31); Bilirubin Total 0.4 mg/dL (0.0-1.0); Blood Urea Nitrogen 25 mg/dL (9-16); Calcium 9.8 mg/dL (8.4-10.2); Carbon Dioxide 25 mmol/L (22-29); Chloride 107 mmol/L (96-108); Cholesterol 163 mg/dL (<200); Estimated Glomerular Filt Rate > 60; Glucose Fasting 106 mg/dL (60-99); HDL Cholesterol 50 mg/dL (>40); LDL Cholesterol Calculated 81 mg/dL (<100); Potassium 4.3 mmol/L (3.3-5.1); Sodium 142 mmol/L (135-145); Total Protein 7.6 g/dL (6.5-8.0); Triglycerides 161 mg/dL (<150)
[2023-04-19 09:58] LABS: Vitamin D 25-OH Total 53.1 ng/mL (>30)
== END 2023-04-19 08:06 | disposition home or self-care (01) ==
LOC: HO.LAB 08:05
PROVIDERS: PCP Internal Medicine; Visit Provider Internal Medicine
DX: E78.5 Hyperlipidemia, unspecified (principal); E55.9 Vitamin D deficiency, unspecified; J43.1 Panlobular emphysema
CPT/HCPCS: 36415; 80053; 80061; 82306; 85025

== ENCOUNTER 2023-04-26 09:45 | Outpatient (AMB) | payer OTHER, SELFPAY ==
[2023-04-26 09:48] VITALS: BP 132/70; BMI 31.4
--- NOTE | 2023-04-26 09:48 | A.OFFPC_ITS ---
Vital Signs 04/26/23 09:48 Height 4 ft 9 in Weight 145 lb BMI 31.4 BP 132/70 Blood Pressure Location Lt brachial Position Sitting Intake Visit Reasons: Annual Exam Intake Note: Patient here for an annual physical exam, c/o knee pains, spots on tongue [employer] Required: No Accompanied by: Self / Same As Patient Allergies No Known Allergies Allergy (Verified 04/26/23 10:01) Medication List - Last Reconciled 04/26/23 by Viviana Guaman MD albuterol sulfate 90 mcg/actuation (ProAir RespiClick) 2 inhalations inhalation Q4-6H PRN albuterol sulfate 2.5 mg inhalation TID atorvastatin 40 mg PO DAILY 90 days calcium carbonate (Calcium) 600 mg PO BID 30 days cholecalciferol (vitamin D3) 25 mcg PO DAILY 90 days dorzolamide 2% 1 drp ophthalmic (eye) BID ttgdugmwecz-ztgxvxglm-urtukzmg 200-62.5-25 mcg (Trelegy Ellipta) 1 ea inhalation DAILY latanoprost 0.005% 1 drp ophthalmic (eye) BEDTIME loratadine 10 mg PO DAILY PRN 90 days montelukast 10 mg PO DAILY naproxen 500 mg PO BID 90 days omeprazole 20 mg PO DAILY Tobacco use date assessed: 08/26/22 Fall risk assessment: No Falls in past year Last assessed Fall Risk: 04/26/23 Dental Screening Dental Screen Date: 04/26/23 Did you have a dental visit in the last 12 months?: Yes Did you have a dental problem in the last 6 months where you did not have access to dental care?: No Was dental information given to patient?: Patient has dentist HPI HPI Comments History of Present Illness Details This is a 67-year-old female with emphysema that comes for her physical exam. Mammogram done March 2023 was normal. Last bone density 2021 was normal. Emphysema stable and follow by pulmonology. Colonoscopy done 2018 was normal. Pap smear done 2020 was normal with HPV negative. She complains of some oral thrush that bothers her. Also has bilateral knee osteoarthritis causing some leg weakness and falls. She will benefit from a cane. [facility] Medical History Emphysema lung Vaginal pruritus Skin lesion GERD (gastroesophageal reflux disease) Oral thrush Severe asthma KEI (mycobacterium avium-intracellulare) Pernicious anemia Pure hypercholesterolemia Surgical History History of section History of cholecystectomy History of tonsillectomy Family History Father Diabetes Hypertension Stroke Mother Diabetes Hypertension Breast cancer, Onset Age: 69 Status post mastectomy Son No problems noted. Family/Other FH: mental illness Social History Household Members: None Household Members Other:: Housing: Apartment Alcohol intake: never Patient Tobacco Use Status: Never used Tobacco e-Cigarette/Vaping Use: Never Used Second Hand Smoke Exposure: No service: No Current occupational status: retired Cognitive needs: No Hearing needs: No Vision needs: No Female Reproductive History Menstrual Age of Menarche: 12 Questionnaire Thrive Questionnaire Date Thrive assessed: 08/26/22 BRIAN-7 AMB Questionnaire BRIAN-7 Date BRIAN - 7 assessed: 08/26/22 Source: Developed by Drs. Ky Fabian, Karissa Mullen, Clinton Stevens and colleagues, with an educational jona from [employer]. Review of Systems Const All systems reviewed & are unremarkable except as noted in HPI and below Eyes Reports no additional complaints, Denies change in vision and Denies other visual disturbances Card Denies chest pain at rest, Denies chest pain with activity, Denies edema, Denies irregular heart rhythm, Denies claudication, Denies dyspnea, Denies dyspnea on exertion, Denies orthopnea, Denies paroxysmal nocturnal dyspnea and Denies slow heart rate Resp Denies cough, Denies dyspnea and Denies dyspnea on exertion GI Denies abdominal pain, Denies change in bowel habits, Denies excessive flatus, Denies nausea and Denies vomiting Denies urinary incontinence, Denies urinary hesitancy and Denies urinary urgency Musc Reports abnormal gait, Denies atrophy, Denies deformity, Reports arthralgias, De nies limited range of motion and Reports muscle weakness Skin/Breast Denies bleeding lesions, Denies changing lesions and Denies rash Neuro Reports abnormal gait, Denies confusion and Denies lack of coordination Psych Denies confusion Physical exam (Primary Care) Vital Signs: Last Vital Signs BP 132/70 04/26/23 09:48 BMI result Body Mass Index 31.4 Tobacco/Smoking Status: Tobacco use Status Tobacco use date assessed 08/26/22 04/26/23 09:53 Patient Tobacco Use Status Never used Tobacco 04/26/23 09:53 e-Cigarette/Vaping Use Never Used 04/26/23 09:53 Thrive Assessment: Date of Thrive Assessment Date Thrive assessed 08/26/22 04/26/23 09:53 Const General: No confusion Orientation/consciousness: patient oriented x3 and No confusion HENMT Head: Yes normal to inspection, Yes normocephalic and Yes atraumatic Ears: external ears normal Eyes General: appearance normal, both eyes and all related structures Eyelids: Yes eyelids normal Conjunctivae: conjunctivae normal Neck Neck: Yes normal visual inspection and Yes supple Resp Effort & Inspection: normal respiratory effort Auscultation: clear to auscultation bilaterally Cardio Jugular venous distension: no JVD Rate: regular rate Rhythm: regular rhythm Heart sounds: S1 normal heart sound present and S2 normal heart sound present GI Inspection: Yes normal to inspection Palpation (GI): Soft to palpation and nontender Auscultation: normal bowel sounds Skin General skin exam: no rashes or lesions noted Neuro General: patient oriented x3, no focal motor deficits and No confusion Extrem General: Yes full ROM Psych Appearance: grossly normal Assessment and Plan Assessment & Plan (1) Physical exam: Code(s): Z00.00 - Encounter for general adult medical examination without abnormal f indings Plan: Repeat in a year (2) Emphysema lung: Code(s): J43.9 - Emphysema, unspecified Qualifiers: Emphysema type: panlobular Qualified Code(s): J43.1 - Panlobular emphysema Plan: Continue Trelegy. Use rescue inhaler as needed. Follow-up with pulmonology. Medications: New cane As directed 1 ea 0RF M17.11 - Unilateral primary osteoarthritis, right knee, M17.12 - Unilateral primary osteoarthritis, left knee nystatin administer 1/2 of dose in each side of the mouth 1 mL buccal BID 30 days PRN 60 mL 1RF oral thrush cane As directed 1 ea 0RF M17.11 - Unilateral primary osteoarthritis, right knee, M17.12 - Unilateral primary osteoarthritis, left knee Coding Level of Care Code Est Pt Prev Care >65y(00518) Diagnoses Physical exam Z00.00 Panlobular emphysema J43.1 Emphysema type: panlobular Time Spent (min) 32
== END 2023-04-26 10:19 | disposition home or self-care (01) ==
PROVIDERS: Visit Provider Internal Medicine
DX: Z00.00 Encounter for general adult medical examination without abnormal findings (principal); J43.1 Panlobular emphysema
CPT/HCPCS: 99397

== ENCOUNTER 2023-06-03 08:55 | Outpatient (AMB) | payer OTHER, SELFPAY ==
--- NOTE | 2023-06-03 09:14 | MHC.OFFVIS ---
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 Scribed for TANYA Holt by Rossi Terry emergency medical services coordinator, on 06/03/2023 at 9:40 am EST Maintenance Plumber Required: No Information Interpreted: non-clinical & clinical Safety And Security Manager: Safety And Security Manager Present (Aidyn) Allergies lobster Allergy (Mild, Verified 06/03/23 09:20) Vomiting Is last menstrual period known: No Post menopausal: Yes Patient : No HPI HPI Comments History of Present Illness Details She is a postmenopausal woman presenting for annual exam. She attempts to eat a healthy diet including Calcium and Vitamin D. She stays active with occasional walking, has arthritis. Not currently sexually active. Reports frequency of urination. She spoke to PCP regarding this and was supposed to get a referral to urology, no orders in the system. Admits to one cup of coffee per day. She stays well hydrated. Denies vaginal itching and irritation. STD screening offered; she accepts. Last pap smear 2020. Last mammogram 04/08/23. UTD on colonoscopy. [facility] Medical History Emphysema lung Vaginal pruritus Skin lesion GERD (gastroesophageal reflux disease) Oral thrush Severe asthma KEI (mycobacterium avium-intracellulare) Pernicious anemia Pure hypercholesterolemia Surgical History Hx of tubal ligation History of section History of cholecystectomy History of tonsillectomy Family History Father Diabetes Hypertension Stroke Mother Diabetes Hypertension Breast cancer, Onset Age: 69 Status post mastectomy Son No problems noted. Family/Other FH: mental illness Social History Household Members: None Household Members Other:: Housing: Apartment Alcohol intake: never Patient Tobacco Use Status: Never used Tobacco e-Cigarette/Vaping Use: Never Used Second Hand Smoke Exposure: No service: No Current occupational status: retired Cognitive needs: No Hearing needs: No Vision needs: No Female Reproductive History Menstrual Age of Menarche: 12 control method: permanent sterilization Total pregnancies: 4 Full term: 4 Number of Living Children: 4 Date of last pap smear: 04/14/21 (negative) History of abnormal pap smear: Yes (2014 ASC-H, 2011 2007 SATHYA 1, 2009 2008 ASCUS,) Date of Mammogram: 04/08/23 Date of last Bone Density Screenin05/07/22 Review of Systems Const All systems reviewed & are unremarkable except as noted in HPI and below Reports other (urinary frequency) Physical Exam Vital Signs: Last Vital Signs BP 140/60 H 06/03/23 09:15 BMI result Body Mass Index 32.0 Const General: cooperative, healthy appearing, no acute distress, well developed and alert Orientation/consciousness: patient oriented x3 HEENT Head: Yes normal to inspection Eyes General: appearance normal, both eyes and all related structures Neck Neck: Yes normal visual inspection Thyroid: Thyroid normal Chest Chest palpation & inspection: normal inspection of the chest Breast/axilla inspection: normal inspection of the breasts (no puckering, dimpling, peau de orange, retraction, discharge, masses) Breast/axilla palpation: normal palpation of the breasts Resp Effort & Inspection: normal respiratory effort GI Inspection: Yes normal to inspection Palpation (GI): Soft to palpation Rectal Exam - Female: deferred General: Yes bladder normal to palpation External Female Exam: normal external appearance and normal appearance of the urethra Speculum Exam - Vagina: normal appearance of the vagina, normal palpation, normal vaginal discharge and vagina atrophic Speculum Exam - Cervix: normal appearance of the cervix and normal palpation Bimanual exam- vagina & uterus: normal bimanual exam, normal palpation, uterine size normal, bladder normal to palpation and normal palpation Bimanual Exam- Adnexa, other: normal adnexae and no masses Skin General skin exam: no rashes or lesions noted Neuro General: patient oriented x3 Cognition (Neuro): normal cognition Extrem General: Yes normal to inspection Psych Attitude: cooperative Thought process: Normal thought process present Assessment & Plan Assessment & Plan (1) Encounter for annual routine gynecological examination: Code(s): Z01.419 - Encounter for gynecological examination (general) (routine) without abnormal findings Plan: Discussed: Current recommendations for pap smears per ASCCP guidelines.? Breast awareness and periodic self breast exams. Encouraged yearly mammograms. Maintaining a healthy lifestyle including a well balanced diet including 1200mg Calcium and 600-800iu Vitamin D daily and routine exercise. Contact office with any PMB. All of her questions and concerns were addressed to the best of my ability. RTO in one year for AG. (2) Urinary frequency: Code(s): R35.0 - Frequency of micturition Plan: Referral sent to urology. Avoid excessive caffeine and drinking late at night. Contact office with any questions or concerns. Orders: Referrals Urology Referral R35.0 - Frequency of micturition Coding Level of Care Code Est Pt Prev Care >65y(84644) Diagnoses Encounter for annual routine gynecological examination Z01.419 Urinary frequency R35.0
[2023-06-03 09:15] VITALS: BP 140/60; BMI 32.0
== END 2023-06-03 09:51 | disposition home or self-care (01) ==
LOC: HO.HWS 08:55
PROVIDERS: PCP Internal Medicine; Visit Provider Advanced Practice Midwife
DX: Z01.419 Encounter for gynecological examination (general) (routine) without abnormal findings (principal); R35.0 Frequency of micturition
CPT/HCPCS: 99397

== ENCOUNTER → 2023-06-03 08:55 | Outpatient (BNVA) | payer OTHER, SELFPAY | PROVIDERS: PCP Internal Medicine; Visit Provider Advanced Practice Midwife ==

== ENCOUNTER 2023-09-10 12:14 | Emergency (ER) | payer OTHER, SELFPAY ==
--- NOTE | ~2023-09-10 | XR_ITS ---
EXAMINATION: XR chest 2V CLINICAL INFORMATION: Reason for Exam cough COMPARISON: 2017 TECHNIQUE: XR chest 2V, 2 Views Lungs and Cyndi: Both lungs are clear. Pleura: Normal. Costophrenic angles are sharp. No pneumothorax. Heart: The heart is normal in size. Mediastinum: The mediastinum is within normal limits.. Bones: Skeletal structures included are normal for patient's age. XR/XR chest 2V IMPRESSION: No radiographic evidence of acute cardiopulmonary disease.
[2023-09-10 12:30] VITALS: BP 176/72; PULSE 92; RESP 18; TEMP 36.5; O2SAT 92; BMI 32.2
--- NOTE | 2023-09-10 12:30 | ED_ITS ---
HPI - Asthma General Chief Complaint: Asthma Stated Complaint: asthma Time Seen by Provider: 09/10/23 14:14 Source: patient and RN notes reviewed Mode of arrival: ambulatory Limitations: no limitations History of Present Illness HPI Narrative: This is a 68-year-old female, with a history of COPD, GERD, asthma, mycobacterium avium intracellulare, pernicious anemia, and hypercholesterolemia, presenting to the emergency department with complaints of shortness of breath, productive cough with brown colored sputum, and chills since last night. Patient has been using her updrafts at home without any relief. Denies any headache, dizziness, chest pain, palpitations, abdominal pain, nausea, vomiting or diarrhea. Denies having to be hospitalized for COPD/asthma. No other complaints or concerns at this time. MD complaint: shortness of breath and wheezing Onset (ago): day(s) Severity: moderate Context: none known Associated symptoms: productive cough Asthma History: childhood onset Treatments Prior to Arrival: inhaled bronchodilator Related Data Current Asthma Therapy: none Home Medications Medication Instructions Recorded Confirmed albuterol sulfate 2.5 mg/3 mL 2.5 mg inhalation TID 07/22/20 04/26/23 (0.083 %) solution for nebulization albuterol sulfate 90 mcg/actuation 2 inh inhalation Q4-6H PRN 07/22/20 04/26/23 breath activated powder inhaler (ProAir RespiClick) montelukast 10 mg tablet 10 mg PO DAILY 07/22/20 04/26/23 dorzolamide 2 % eye drops 1 drp ophthalmic (eye) BID 01/14/22 04/26/23 fluticasone fur. 200 mcg-umeclid 1 ea inhalation DAILY 01/14/22 04/26/23 62.5 mcg-vilant 25 mcg inhalat.powder (Trelegy Ellipta) latanoprost 0.005 % eye drops 1 drp ophthalmic (eye) BEDTIME 01/14/22 04/26/23 omeprazole 20 mg capsule,delayed 20 mg PO DAILY 02/11/23 04/26/23 release Previous Rx's Medication Instructions Recorded naproxen 500 mg tablet 500 mg PO BID 90 days #180 tabs 02/24/21 calcium carbonate 600 mg calcium 600 mg PO BID 30 days #60 tabs 05/03/21 (1,500 mg) tablet (Calcium) cholecalciferol (vitamin D3) 25 25 mcg PO DAILY 90 days #90 caps 04/03/23 mcg (1,000 unit) capsule cane #1 ea 04/26/23 atorvastatin 40 mg tablet 40 mg PO DAILY 90 days #90 tabs 08/21/23 loratadine 10 mg tablet 10 mg PO DAILY PRN allergy 09/07/23 symptoms 90 days #90 tabs azithromycin 250 mg tablet See Rx Instructions PO .COMPLEX #6 09/10/23 tabs prednisone 20 mg tablet 40 mg (2 x 20 mg) PO DAILY #10 tabs 09/10/23 Allergies Allergy/AdvReac Type Severity Reaction Status Date / Time lobster Allergy Mild Vomiting Verified 09/10/23 12:36 Review of Systems 2 Review of Systems: Yes all other systems are reviewed and are negative Constitutional: Constitutional: Reports as per [facility] Past Medical History Medical History Emphysema lung Vaginal pruritus Skin lesion GERD (gastroesophageal reflux disease) Oral thrush Severe asthma KEI (mycobacterium avium-intracellulare) Pernicious anemia Pure hypercholesterolemia Surgical History Hx of tubal ligation History of section History of cholecystectomy History of tonsillectomy Family History Family History Father Diabetes Hypertension Stroke Mother Diabetes Hypertension Breast cancer, Onset Age: 69 Status post mastectomy Son No problems noted. Family/Other FH: mental illness Social History Social History Household Members: None Household Members Other:: Housing: Apartment Alcohol intake: never Patient Tobacco Use Status: Never used Tobacco e-Cigarette/Vaping Use: Never Used Second Hand Smoke Exposure: No Advance Directives: No Advance Directives Information Provided: Yes service: No Current occupational status: retired Cognitive needs: No Hearing needs: No Vision needs: No Physical Exam 2 Vital Signs: Vital Signs: Last Vital Signs Temp 98.3 F 09/10/23 18:02 Pulse 87 09/10/23 18:02 Resp 16 09/10/23 18:02 BP 143/67 H 09/10/23 18:02 Pulse Ox 94 09/10/23 18:02 O2 Del Method Room Air 09/10/23 18:02 BMI result Body Mass Index 32.2 Const: General: cooperative, comfortable and no acute distress O rientation/consciousness: patient oriented x3 Limitations: no limitations HEENT: Head: Yes normal to inspection, Yes normocephalic and Yes atraumatic Ears: hearing grossly normal bilaterally and TM's normal bilaterally General nose exam: Normal external nose present Face and sinus: Yes normal facial exam Mouth: Normal oral and palatal mucosa present, oropharynx normal and moist mucous membranes Throat: Yes posterior oropharynx normal, Yes tonsils normal and Yes uvula midline Eyes: General: appearance normal, both eyes and all related structures E yelids: Yes eyelids normal Conjunctivae: conjunctivae normal Sclerae: s clerae normal Pupils: Equal, round and reactive pupils present EOM: EOMs intact bilaterally Neck: Neck: Yes normal visual inspection, Yes full ROM and Yes no lymphadenopathy Lymphatic: no lymphadenopathy noted Chest: Chest palpation & inspection: normal inspection of the chest Resp: Other: Inspiratory and expiratory wheezes noted throughout all lung brandt. Effort & Inspection: normal respiratory effort and able to speak in complete sentences Auscultation: clear to auscultation bilaterally, no crackles, no rales, no rhonchi and no wheezes Cardio: Rate: regular rate Rhythm: regular rhythm Heart sounds: S1 normal heart sound present and S2 normal heart sound present GI: Inspection: Yes normal to inspection Skin: General skin exam: no rashes or lesions noted Trauma: no lacerations or abrasions Wounds: no wounds Neuro: General: patient oriented x3 and moves all extremities Cranial nerves: Yes Equal, round and reactive pupils present Extrem: General: Yes normal to inspection Right upper extremity: normal to inspection Left upper extremity: normal to inspection Right lower extremity: normal to inspection Left lower extremity: normal to inspection Course Course Course Narrative: RME: 68 year-old F w/ PMHx GERD, glaucoma, osteoarthritis, asthma, emphysema, anemia, HLD presenting to the ED c/o asthma exacerbation with productive cough of brown phlegm x2 days. Admits to SOB, lung pain & chills. denies travel, fever, CP 91-92% on RA w/diffuse expiratory wheeze Viral testing, CXR, ED Bronch protocol ordered Full HPI, ROS and PE to be performed by primary ED provider. Reevaluation(s) Reevaluation #1: Patient re-evaluated, inspiratory and expiratory wheezes noted throughout all lung brandt despite getting 2 updrafts. Sign-out given to my colleague, Jostin Berman pending re-evaluation as patient has not received IV Solu-Medrol at this time. Time: 16:38 Reevaluation #2: Patient reports feeling much better, she passed ambulation trial. Patient be discharged with azithromycin and prednisone for COPD exacerbation Time: 20:18 Medications Administered Discontinued Medications Generic Name Dose Route Start Last Admin Trade Name Freq PRN Reason Stop Dose Admin Albuterol/Ipratropium 3 ml 09/10/23 13:17 09/10/23 13:22 Albuterol/Iprat 2.5/0.5mg 3 Ml Ampul.Neb INHALE 09/10/23 13:18 3 ml ONCE ONE Administration Azithromycin 500 mg 09/10/23 15:58 09/10/23 16:55 Azithromycin 500 Mg Tablet PO 09/10/23 15:59 500 mg ONCE ONE Administration Albuterol Sulfate 5 mg/ 0 mg 09/10/23 15:44 09/10/23 16:15 Albuterol/Ipratropium 3 ml INHALE 09/10/23 15:45 5 each ONCE ONE Administration Methylprednisolone Sodium Succinate 125 mg 09/10/23 15:44 09/10/23 16:57 Methylprednisolone Sod Succ 125 Mg/2 Ml Vial IVPUSH 09/10/23 15:45 125 mg ONCE ONE Administration Medical Decision Making Medical Decision Making MDM Narrative: This is a 68-year-old female, with a history of COPD, severe asthma, KEI, pernicious anemia, hypercholesterolemia, presenting to the emergency department with complaints of productive cough with brown colored sputum, chills. Lungs with inspiratory and expiratory wheezes noted throughout all lung brandt. Labs with no leukocytosis, H&H stable, alk-phos slightly elevated however patient not complaining about any pain, appears to be elevated in the past. Negative COVID and flu. Differential diagnoses include pneumonia, URI, viral syndrome, asthma exacerbation, COPD exacerbation. Given lung sounds, will treat with IV Solu- Medrol. Muscle cover for COPD exacerbation with azithromycin. Patient given 1st dose in department. Differential Diagnosis Differential Diagnoses: The differential diagnosis associated with the presentation includes See above Admission/Observation Consideration of admission/observation: Escalation of care including admission/observation considered Patient would have been admitted to the hospital had her work up had any findings where hospital admission was appropriate and her clinical presentation warranted hospital admission. Lab Data [facility] Lab Attestation statement: I reviewed the patient's lab results. See [facility] 09/10/23 12:55 09/10/23 12:55 Labs: Lab Results 09/10/23 09/10/23 Range/Units 12:54 12:55 WBC 7.7 (4.8-10.8) X10*3/uL RBC 4.93 (4.20-5.50) X10*6/uL Hgb 12.8 (12.0-16.0) g/dl Hct 40.2 (37.0-47.0) % MCV 81.5 (80.0-98.0) fL MCH 26.0 L (27.0-33.0) pg MCHC 31.8 (31.0-35.0) g/dl RDW 14.6 (11.0-16.0) % Plt Count 295 (160-400) X10*3/uL MPV 10.6 (9.4-12.3) fL Immature Gran % (Auto) 0.3 (0.0-0.4) % Neut % (Auto) 68.3 (45-73) % Lymph % (Auto) 14.9 L (20-40) % Nye % (Auto) 8.2 (2-11) % Eos % (Auto) 7.6 H (0-4) % Baso % (Auto) 0.7 (0-2) % Lymph # (Auto) 1.1 L (1.2-4.9) X10*3/uL Nye # (Auto) 0.6 (0.1-1.2) X10*3/uL Eos # (Auto) 0.6 H (0.0-0.4) X10*3/uL Baso # (Auto) 0.1 (0.0-0.2) X10*3/uL Abs Immat Gran (auto) 0.02 (0.00-0.03) X10*3/uL Absolute Neuts (auto) 5.2 (2.0-8.3) x10*3/uL Absolute Nucleated RBC 0.000 (0.0-0.012) X10*3/uL Nucleated RBC % (auto) 0.0 (0.0-0.2) /100WBC Sodium 142 (135-145) mmol/L Potassium 4.0 (3.3-5.1) mmol/L Chloride 107 (96-108) mmol/L Carbon Dioxide 27 (22-29) mmol/L Anion Gap 12 (12-20) BUN 13 (9-16) mg/dL Creatinine 0.71 (0.5-1.4) mg/dL Estim Creat Clear Calc 59.9 Estimated GFR > 60 Random Glucose 112 (60-115) mg/dL Calcium 9.6 (8.4-10.2) mg/dL Total Bilirubin 0.5 (0.0-1.0) mg/dL Direct Bilirubin 0.2 (0.0-0.5) mg/dL AST 23 (5-31) U/L ALT 14 (0-31) U/L Alkaline Phosphatase 142 H (39-117) U/L Troponin I High Sens 3.5 (<3.5-17.0) ng/L Total Protein 7.8 (6.5-8.0) g/dL Albumin 4.2 (3.5-5.0) g/dL COVID-19 (DOUG) Negative (Negative) COVID-19 Clin Com See Note Influenza Type A (SNOW) Negative (Negative) Influenza Type B (SNOW) Negative (Negative) Influenza A & B Note See Note Independent Interpretation I performed an independent interpretation of an: Plain X-Ray Interpretation: X-ray reviewed by me, agree with radiology report Radiology Impression Discussion of test interpretation with radiology: I have reviewed the radiologist's reading. Radiologist Impression: EXAMINATION: XR chest 2V CLINICAL INFORMATION: Reason for Exam cough COMPARISON: 2018 TECHNIQUE: XR chest 2V, 2 Views Lungs and Cyndi: Both lungs are clear. Pleura: Normal. Costophrenic angles are sharp. No pneumothorax. Heart: The heart is normal in size. Mediastinum: The mediastinum is within normal limits.. Bones: Skeletal structures included are normal for patient's age. XR/XR chest 2V IMPRESSION: No radiographic evidence of acute cardiopulmonary disease. Dictated By: Sandro Meng MD Discharge Plan Discharge Clinical Impression: COPD exacerbation Patient Disposition: Home, Self-Care Instructions: COPD (Chronic Obstructive Pulmonary Disease) (ED) Additional Instructions: Take azithromycin and prednisone as directed for COPD exacerbation, the remainder of her workup was reassuring Follow-up your primary doctor Prescriptions: New azithromycin 250 mg tablet See Rx Instructions .ROUTE .COMPLEX Qty: 6 0RF Rx Instructions: For 250 mg dose pack: take 500 mg today (day 1), then 250 mg for 4 days (days 2-5) prednisone 20 mg tablet 40 mg PO DAILY Qty: 10 0RF No Action naproxen 500 mg tablet 500 mg PO BID 90 Days Qty: 180 3RF calcium carbonate [Calcium 600] 600 mg calcium (1,500 mg) tablet 600 mg PO BID 30 Days Qty: 60 6RF cholecalciferol (vitamin D3) 25 mcg (1,000 unit) capsule 25 mcg PO DAILY 90 Days Qty: 90 3RF atorvastatin 40 mg tablet 40 mg PO DAILY 90 Days Qty: 90 3RF loratadine 10 mg tablet 10 mg PO DAILY PRN (Reason: allergy symptoms) 90 Days Qty: 90 1RF montelukast 10 mg tablet 10 mg PO DAILY ProAir RespiClick 90 mcg/actuation aerosol powdr breath activated 2 inh inhalation Q4-6H PRN albuterol sulfate 2.5 mg /3 mL (0.083 %) solution for nebulization 2.5 mg inhalation TID Trelegy Ellipta 200-62.5-25 mcg blister with device 1 ea inhalation DAILY latanoprost 0.005 % drops 1 drp ophthalmic (eye) BEDTIME dorzolamide 2 % drops 1 drp ophthalmic (eye) BID (DME) cane Device See Rx Instructions .Route Qty: 1 0RF Rx Instructions: As directed omeprazole 20 mg capsule,delayed release(DR/EC) 20 mg PO DAILY
--- NOTE | 2023-09-10 12:36 | ECG_ITS ---
Test Reason : SOB Blood Pressure : / mmHG Vent. Rate : 088 BPM Atrial Rate : 088 BPM P-R Int : 174 ms QRS Dur : 080 ms QT Int : 342 ms P-R-T Axes : 081 048 079 degrees QTc Int : 413 ms Normal sinus rhythm Normal ECG When compared to the previous EKG of No significant changes seen Referred By: Gisell Guerra Electronically Signed By:Antoine Gillespie
[2023-09-10 12:59] LABS: MANUAL DIFF FLAG NO
[2023-09-10 13:03] LABS: Basophils Absolute Auto 0.1 X10*3/uL (0.0-0.2); Basophils Percent Auto 0.7 % (0-2); Eosinophils Absolute Auto 0.6 X10*3/uL (0.0-0.4); Eosinophils Percent Auto 7.6 % (0-4); Hematocrit 40.2 % (37.0-47.0); Hemoglobin 12.8 g/dl (12.0-16.0); Imm Gran Abs Auto 0.02 X10*3/uL (0.00-0.03); Imm Gran Pct Auto 0.3 % (0.0-0.4); Lymphocytes Absolute Auto 1.1 X10*3/uL (1.2-4.9); Lymphocytes Percent Auto 14.9 % (20-40); Mean Corpuscular HGB Conc 31.8 g/dl (31.0-35.0); Mean Corpuscular Volume 81.5 fL (80.0-98.0); Mean Platelet Volume 10.6 fL (9.4-12.3); Monocytes Absolute Auto 0.6 X10*3/uL (0.1-1.2); Monocytes Percent Auto 8.2 % (2-11); Neutrophils Absolute Auto 5.2 x10*3/uL (2.0-8.3); Neutrophils Percent Auto 68.3 % (45-73); Platelet Count 295 X10*3/uL (160-400); Red Blood Count 4.93 X10*6/uL (4.20-5.50); Red Cell Distribution Width 14.6 % (11.0-16.0); White Blood Count 7.7 X10*3/uL (4.8-10.8)
[2023-09-10 13:20] LABS: Alanine Aminotransferase 14 U/L (0-31); Albumin Level 4.2 g/dL (3.5-5.0); Alkaline Phosphatase 142 U/L (39-117); Anion Gap 12 (12-20); Aspartate Amino Transferase 23 U/L (5-31); Bilirubin Direct 0.2 mg/dL (0.0-0.5); Bilirubin Total 0.5 mg/dL (0.0-1.0); Blood Urea Nitrogen 13 mg/dL (9-16); Calcium 9.6 mg/dL (8.4-10.2); Carbon Dioxide 27 mmol/L (22-29); Chloride 107 mmol/L (96-108); Creatinine Clr Calc Pharmacy 59.9; Estimated Glomerular Filt Rate > 60; Glucose Random 112 mg/dL (60-115); Sodium 142 mmol/L (135-145); Total Protein 7.8 g/dL (6.5-8.0)
[2023-09-10 13:22] VITALS: PULSE 85; RESP 18; O2SAT 95
[2023-09-10] MEDS: Albuterol/Iprat 2.5/0.5MG 3 ML AMPUL.NEB INHALE (13:22)
[2023-09-10 13:24] LABS: COVID-19 Test Negative (Negative); IDNOW Serial# 152EDE1D
[2023-09-10 13:25] LABS: IDNOW Serial# 08D9AD1C; Influenza A Negative (Negative); Influenza B2 Negative (Negative)
[2023-09-10 13:26] LABS: Troponin-I High Sensitivity 3.5 ng/L (<3.5-17.0)
[2023-09-10 16:00] VITALS: BP 158/66; PULSE 81; RESP 16; TEMP 36.9; O2SAT 95
--- NOTE | 2023-09-10 16:01 | MHC.EDTECH ---
THIS PCT ASSUMED CARE OF PATIENT AT 1500 ,VITALS TAKEN ,PT RESTING COMFORTABLE IN BED .
[2023-09-10] MEDS: Albuterol Sulfate 5 MG, Albuterol/Iprat 2.5/0.5MG 3 ML 3 ML INHALE (16:15)
[2023-09-10 16:16] VITALS: PULSE 83; RESP 20; O2SAT 96
[2023-09-10] MEDS: Azithromycin 500 MG TABLET PO (16:55)
[2023-09-10] MEDS: methylPREDNISolone Sod Succ 125 MG/2 ML VIAL IVPUSH (16:57)
--- NOTE | 2023-09-10 16:57 | PC.NURSE ---
IV established, medicated per the MAR. patient resting quietly in room with no obvious signs/symptoms of distress noted. call [facility] is within reach
[2023-09-10 18:02] VITALS: BP 143/67; PULSE 87; RESP 16; TEMP 36.8; O2SAT 94
--- NOTE | 2023-09-10 18:07 | MHC.EDTECH ---
Patient went for a walk while checking her o2 sat ,Patient stat started at 94% and remain at 94 % PAUL Gallegos aware .
[2023-09-10 20:31] VITALS: BP 148/63; PULSE 90; RESP 16; TEMP 36.8; O2SAT 97
== END 2023-09-10 20:32 | disposition home or self-care (01) ==
PROVIDERS: Physician Assistant; Emergency Provider Internal Medicine; PCP Internal Medicine
DX: J44.1 Chronic obstructive pulmonary disease with (acute) exacerbation (principal); Z11.52 Encounter for screening for COVID-19; R06.02 Shortness of breath; E78.00 Pure hypercholesterolemia, unspecified; J43.9 Emphysema, unspecified; A31.0 Pulmonary mycobacterial infection; D51.0 Vitamin B12 deficiency anemia due to intrinsic factor deficiency; Z79.899 Other long term (current) drug therapy
CPT/HCPCS: 36415; 71046; 80048; 80076; 84484; 85025; 87502; 87635; 93005; 94640; 96374; 99284; 99285; J2930

== ENCOUNTER → 2023-09-10 12:36 | Outpatient (BNV) | payer OTHER, SELFPAY | PROVIDERS: Emergency Provider Internal Medicine; PCP Internal Medicine; Visit Provider Internal Medicine Cardiovascular Disease | DX: R06.02 Shortness of breath (principal) | CPT/HCPCS: 93010 ==

== ENCOUNTER 2023-09-15 16:44 | Outpatient (AMB) | payer OTHER, SELFPAY ==
[2023-09-15 16:46] VITALS: BP 132/60; BMI 32.5
--- NOTE | 2023-09-15 16:46 | MHC.PC.OV ---
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 Accompanied by: Self / Same As Patient Allergies lobster Allergy (Mild, Verified 09/15/23 16:58) Vomiting Medication List - Last Reconciled 09/15/23 by Viviana Guaman MD albuterol sulfate 90 mcg/actuation (ProAir RespiClick) 2 inhalations inhalation Q4-6H PRN albuterol sulfate 2.5 mg inhalation TID atorvastatin 40 mg PO DAILY 90 days azithromycin For 250 mg dose pack: take 500 mg today (day 1), then 250 mg for 4 days (days 2-5) calcium carbonate (Calcium) 600 mg PO BID 30 days cane As directed cholecalciferol (vitamin D3) 25 mcg PO DAILY 90 days dorzolamide 2% 1 drp ophthalmic (eye) BID yzaqbcpzyxc-iramklbzb-rwiadeui 200-62.5-25 mcg (Trelegy Ellipta) 1 ea inhalation DAILY latanoprost 0.005% 1 drp ophthalmic (eye) BEDTIME loratadine 10 mg PO DAILY PRN 90 days montelukast 10 mg PO DAILY naproxen 500 mg PO BID 90 days omeprazole 20 mg PO DAILY prednisone 40 mg (2 x 20 mg) PO DAILY Tobacco use date assessed: 09/15/23 Fall risk assessment: No Falls in past year Last assessed Fall Risk: 09/15/23 Dental Screening Dental Screen Date: 09/15/23 Did you have a dental visit in the last 12 months?: Yes Did you have a dental problem in the last 6 months where you did not have access to dental care?: No Was dental information given to patient?: Patient has dentist HPI HPI Comments History of Present Illness Details This is a 68-year-old female with emphysema, KEI, GERD and pure hypercholesterolemia that comes today as a hospital discharge follow-up with discharge date 09/10/2023 due to COPD exacerbation. She was having more shortness of breath and nasal congestion the day before going to be are. Labs, EKG and chest x-ray were done showing no significant abnormality. COVID-19 and influenza were rule out. She denies any fever. Was prescribed a Z-Bong and prednisone showing marked improvement. Emphysema and KEI are follow by pulmonology and has been stable with long-acting inhaler. GERD stable with PPIs. On statins for her pure hypercholesterolemia and declines any side effects. Has knee osteoarthritis relieved by naproxen as needed and this will be refill. [facility] Medical History (Updated 09/15/23 @ 17:12 by Viviana Guaman MD) Emphysema lung Vaginal pruritus Skin lesion GERD (gastroesophageal reflux disease) Oral thrush Severe asthma KEI (mycobacterium avium-intracellulare) Pernicious anemia Pure hypercholesterolemia Surgical History Hx of tubal ligation History of section History of cholecystectomy History of tonsillectomy Family History Father Diabetes Hypertension Stroke Mother Diabetes Hypertension Breast cancer, Onset Age: 69 Status post mastectomy Son No problems noted. Family/Other FH: mental illness Social History Household Members: None Household Members Other:: Housing: Apartment Alcohol intake: never Patient Tobacco Use Status: Never used Tobacco e-Cigarette/Vaping Use: Never Used Second Hand Smoke Exposure: No service: No Current occupational status: retired Cognitive needs: No Hearing needs: No Vision needs: No Female Reproductive History Menstrual Age of Menarche: 12 Questionnaire PHQ-9 Over the last 2 weeks, how often have you been bothered by any of the following problems? 1. Little interest or pleasure in doing things: not at all 2. Feeling down, depressed, or hopeless: not at all 3. Trouble falling or staying asleep, or sleeping too much: not at all 4. Feeling tired or having little energy: not at all 5. Poor appetite or overeating: not at all 6. Feeling bad about yourself - or that you are a failure or have let yourself or your family down: not at all 7. Trouble concentrating on things, such as reading the newspaper or watching television: not at all 8. Moving or speaking so slowly that other people could have noticed. Or the opposite - being so fidgety or restless that you have been moving around a lot more than usual: not at all 9. Thoughts that you would be better off or of hurting yourself in some way: not at all Total score: 0 Depression Screening Interpretation: Negative Depression Screening Done: Yes 64328 - PHQ-9 Billing: Yes Source: Developed by Drs. Ky Fabian, Karissa Mullen, Clinton Stevens and colleagues, with an educational jona from [employer]. Thrive Questionnaire Date Thrive assessed: 09/15/23 I am a: Patient What is your living situation today?: I have a steady place to live Within the past 12 months, did the food you bought not last and you didn't have the money to get more?: Never true Within the past 12 months, did you worry whether your food would run out before you got money to buy more?: Never true Do you have trouble paying for medicines?: No Do you have trouble getting transportation to medical appointments?: No Do you have trouble paying your heating and electricity bill?: No Do you have trouble taking care of your child, family member or friend?: No Do you have trouble with day-to-day activities such as bathing, preparing meals, shopping, managing finances, etc.?: No Are you currently unemployed and looking for a job?: No Are you interested in more education?: No Please select the resources that you would like help with: None Currently or been in a relationship where the following occur: no concerns reported THRIVE Score: 0 AUDIT C Alcohol Use Questionnaire (AUDIT-C) 1. How often do you have a drink containing alcohol?: Never Total Score: 0 Score Reviewed/Action Taken: No BRIAN-7 AMB Questionnaire BRIAN-7 Date BRIAN - 7 assessed: 09/15/23 Feeling nervous, anxious, or on edge: 0 = Not at all Not being able to stop or control worryin = Not at all Worrying too much about different things: 0 = Not at all Trouble relaxin = Not at all Being so restless that it is hard to sit still: 0 = Not at all Becoming easily annoyed or irritable: 0 = Not at all Feeling afraid as if something awful might happen: 0 = Not at all Total BRIAN-7 score (0-4 normal; 5-9 mild; 10-14 moderate; 15-21 severe): 0 Source: Developed by Drs. Ky Fabian, Karissa Mullen, Clinton Stevens and colleagues, with an educational jona from [employer]. BRIAN-7 Assessment Billing BRIAN-7 Assessment Tool: BRIAN-7 Assessment 54439 Review of Systems Const All systems reviewed & are unremarkable except as noted in HPI and below Eyes Reports no additional complaints, Denies change in vision and Denies other visual disturbances Card Denies chest pain at rest, Denies chest pain with activity, Denies edema, Denies irregular heart rhythm, Denies claudication, Denies dyspnea, Denies dyspnea on exertion, Denies orthopnea, Denies paroxysmal nocturnal dyspnea and Denies slow heart rate Resp Denies cough, Denies dyspnea and Denies dyspnea on exertion GI Denies abdominal pain, Denies change in bowel habits, Denies excessive flatus, Denies nausea and Denies vomiting Denies urinary incontinence, Denies urinary hesitancy and Denies urinary urgency Musc Denies abnormal gait, Denies atrophy, Denies deformity and Denies limited range of motion Skin/Breast Denies bleeding lesions, Denies changing lesions and Denies rash Neuro Denies abnormal gait, Denies behavioral changes and Denies lack of coordination Psych Denies behavioral changes Physical exam (Primary Care) Vital Signs: Last Vital Signs BP 132/60 09/15/23 16:46 BMI result Body Mass Index 32.5 Tobacco/Smoking Status: Tobacco use Status Tobacco use date assessed 09/15/23 09/15/23 16:52 Patient Tobacco Use Status Never used Tobacco 09/15/23 16:52 e-Cigarette/Vaping Use Never Used 09/15/23 16:52 PHQ-9: PHQ-9 Score PHQ-9: Total score 0 09/15/23 16:52 Depression Screening Interpretation: Negative Thrive Assessment: Date of Thrive Assessment Date Thrive assessed 09/15/23 09/15/23 16:52 Currently or been in a relationship where the following occur: no concerns reported Eyes General: appearance normal, both eyes and all related structures Eyelids: Yes eyelids normal Conjunctivae: conjunctivae normal Neck Neck: Yes normal visual inspection and Yes supple Resp Effort & Inspection: normal respiratory effort Auscultation: rhonchi and wheezes Cardio Jugular venous distension: no JVD Rate: regular rate Rhythm: regular rhythm Heart sounds: S1 normal heart sound present and S2 normal heart sound present Extrem General: Yes full ROM Assessment and Plan Assessment & Plan (1) Hospital discharge follow-up: Code(s): Z09 - Encounter for follow-up examination after completed treatment for conditions other than malignant neoplasm Plan: Discharge date 09/10/2023 due to COPD exacerbation. CXR, EKG and labs that showed no significant abnormality. Was prescribed Z-Bong and prednisone with marked improvement. (2) Emphysema lung: Code(s): J43.9 - Emphysema, unspecified Qualifiers: Emphysema type: panlobular Qualified Code(s): J43.1 - Panlobular emphysema Plan: Continue long-acting inhaler. Use rescue inhaler as needed. Follow-up with pulmonology. (3) GERD (gastroesophageal reflux disease): Code(s): K21.9 - Gastro-esophageal reflux disease without esophagitis Qualifiers: Esophagitis presence: esophagitis presence not specified Qualified Code(s): K21.9 - Gastro-esophageal reflux disease without esophagitis Plan: Continue PPIs. (4) Pure hypercholesterolemia: Code(s): E78.00 - Pure hypercholesterolemia, unspecified Plan: Continue statins. (5) KEI (mycobacterium avium-intracellulare): Code(s): A31.0 - Pulmonary mycobacterial infection Plan: Follow-up with pulmonology. Medications: Refilled naproxen 500 mg PO BID 90 days 180 tabs 3RF Coding Level of Care Code TCM Mod MDM <= 7 Days Diagnoses Hospital discharge follow-up Z09 Panlobular emphysema J43.1 Emphysema type: panlobular Gastroesophageal reflux disease, unspecified whether esophagitis present K21.9 Esophagitis presence: esophagitis presence not specified Pure hypercholesterolemia E78.00 KEI (mycobacterium avium-intracellulare) A31.0 Additional Codes BRIAN-7 Assessment Billing - BRIAN-7 Assessment Tool: BRIAN-7 Assessment [id number] ([id number]) Time Spent (min) 23
== END 2023-09-15 17:30 | disposition home or self-care (01) ==
PROVIDERS: PCP Internal Medicine; Visit Provider Internal Medicine
DX: J43.1 Panlobular emphysema (principal); A31.0 Pulmonary mycobacterial infection; K21.9 Gastro-esophageal reflux disease without esophagitis; Z09 Encounter for follow-up examination after completed treatment for conditions other than malignant neoplasm; E78.00 Pure hypercholesterolemia, unspecified
CPT/HCPCS: 99214

== ENCOUNTER 2024-02-11 07:19 | Outpatient (REF) | payer OTHER, SELFPAY ==
[2024-02-11 08:49] LABS: Alanine Aminotransferase 16 U/L (0-31); Albumin Level 4.3 g/dL (3.5-5.0); Alkaline Phosphatase 119 U/L (39-117); Anion Gap 12 (12-20); Aspartate Amino Transferase 22 U/L (5-31); Bilirubin Total 0.5 mg/dL (0.0-1.0); Blood Urea Nitrogen 21 mg/dL (9-16); Calcium 9.9 mg/dL (8.4-10.2); Carbon Dioxide 27 mmol/L (22-29); Chloride 107 mmol/L (96-108); Cholesterol 172 mg/dL (<200); Estimated Glomerular Filt Rate > 60; Glucose Random 100 mg/dL (60-115); HDL Cholesterol 54 mg/dL (>40); LDL Cholesterol Calculated 87 mg/dL (<100); Potassium 4.3 mmol/L (3.3-5.1); Sodium 142 mmol/L (135-145); Total Protein 7.4 g/dL (6.5-8.0); Triglycerides 157 mg/dL (<150)
[2024-02-11 09:04] LABS: Vitamin D 25-OH Total 45.1 ng/mL (>30)
== END 2024-02-11 07:20 | disposition home or self-care (01) ==
LOC: HO.LAB 07:19
PROVIDERS: PCP Internal Medicine; Visit Provider Internal Medicine
DX: E55.9 Vitamin D deficiency, unspecified (principal); J30.9 Allergic rhinitis, unspecified; E78.5 Hyperlipidemia, unspecified
CPT/HCPCS: 36415; 80053; 80061; 82306

== ENCOUNTER 2024-02-16 15:29 | Outpatient (AMB) | payer OTHER, SELFPAY ==
[2024-02-16 15:40] VITALS: BP 136/68; BMI 32.0
--- NOTE | 2024-02-16 15:40 | MHC.PC.OV ---
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 Accompanied by: Self / Same As Patient Allergies lobster Allergy (Mild, Verified 02/16/24 15:59) Vomiting Medication List - Last Reconciled 02/16/24 by Viviana Guaman MD albuterol sulfate 90 mcg/actuation (ProAir RespiClick) 2 inhalations inhalation Q4-6H PRN albuterol sulfate 2.5 mg inhalation TID atorvastatin 40 mg PO DAILY 90 days calcium carbonate (Calcium 600) 600 mg PO BID 30 days cane As directed cholecalciferol (vitamin D3) 25 mcg PO DAILY 90 days dorzolamide 2% 1 drp ophthalmic (eye) BID povbeoglfpf-eciwzwvqd-alyzpprg 200-62.5-25 mcg (Trelegy Ellipta) 1 ea inhalation DAILY latanoprost 0.005% 1 drp ophthalmic (eye) BEDTIME loratadine 10 mg PO DAILY PRN 90 days montelukast 10 mg PO DAILY naproxen 500 mg PO BID 90 days omeprazole 20 mg PO DAILY prednisone 40 mg (2 x 20 mg) PO DAILY Tobacco use date assessed: 09/15/23 Fall risk assessment: No Falls in past year Last assessed Fall Risk: 02/16/24 Dental Screening Dental Screen Date: 09/15/23 HPI HPI Comments History of Present Illness Details This is a 68-year-old female with GERD, pure hypercholesterolemia, emphysema and low vitamin-D that comes today for follow-up on her conditions. GERD stable with PPIs. Cholesterol well controlled with statins and reports no side effects. On vitamin-D supplements for her low vitamin-D. Emphysema well controlled with long-acting inhaler and follow by pulmonology. She denies any chest pain or shortness on breath. [facility] Medical History Emphysema lung Vaginal pruritus Skin lesion GERD (gastroesophageal reflux disease) Oral thrush Severe asthma KEI (mycobacterium avium-intracellulare) Pernicious anemia Pure hypercholesterolemia Surgical History Hx of tubal ligation History of section History of cholecystectomy History of tonsillectomy Family History Father Diabetes Hypertension Stroke Mother Diabetes Hypertension Breast cancer, Onset Age: 69 Status post mastectomy Son No problems noted. Family/Other FH: mental illness Social History Household Members: None Household Members Other:: Housing: Apartment Alcohol intake: never Patient Tobacco Use Status: Never used Tobacco e-Cigarette/Vaping Use: Never Used Second Hand Smoke Exposure: No service: No Current occupational status: retired Cognitive needs: No Hearing needs: No Vision needs: No Female Reproductive History Menstrual Age of Menarche: 12 Questionnaire Thrive Questionnaire Date Thrive assessed: 09/15/23 BRIAN-7 AMB Questionnaire BRIAN-7 Date BRIAN - 7 assessed: 09/15/23 Source: Developed by Drs. Ky Fabian, Karissa Mullen, Clinton Stevens and colleagues, with an educational jona from [employer]. Review of Systems Const All systems reviewed & are unremarkable except as noted in HPI and below Card Denies chest pain at rest, Denies chest pain with activity, Denies edema, Denies irregular heart rhythm, Denies claudication, Denies dyspnea, Denies dyspnea on exertion, Denies orthopnea, Denies paroxysmal nocturnal dyspnea and Denies slow heart rate Resp Denies cough, Denies dyspnea and Denies dyspnea on exertion GI Denies abdominal pain, Denies change in bowel habits, Denies excessive flatus, Denies nausea and Denies vomiting Denies urinary incontinence, Denies urinary hesitancy and Denies urinary urgency Musc Denies atrophy, Denies deformity and Denies limited range of motion Skin/Breast Denies bleeding lesions, Denies changing lesions and Denies rash Physical exam (Primary Care) Vital Signs: Last Vital Signs BP 136/68 02/16/24 15:40 BMI result Body Mass Index 32.0 Tobacco/Smoking Status: Tobacco use Status Tobacco use date assessed 09/15/23 02/16/24 15:45 Patient Tobacco Use Status Never used Tobacco 02/16/24 15:45 e-Cigarette/Vaping Use Never Used 02/16/24 15:45 Thrive Assessment: Date of Thrive Assessment Date Thrive assessed 09/15/23 02/16/24 15:45 Resp Effort & Inspection: normal respiratory effort Auscultation: clear to auscultation bilaterally Cardio Jugular venous distension: no JVD Rate: regular rate Rhythm: regular rhythm Heart sounds: S1 normal heart sound present and S2 normal heart sound present Extrem General: Yes full ROM Assessment and Plan Assessment & Plan (1) Emphysema lung: Code(s): J43.9 - Emphysema, unspecified Qualifiers: Emphysema type: panlobular Qualified Code(s): J43.1 - Panlobular emphysema Plan: Continue Trelegy. Use rescue inhaler as needed. Follow-up with pulmonology. (2) GERD (gastroesophageal reflux disease): Code(s): K21.9 - Gastro-esophageal reflux disease without esophagitis Qualifiers: Esophagitis presence: esophagitis presence not specified Qualified Code(s): K21.9 - Gastro-esophageal reflux disease without esophagitis Plan: Continue PPIs. (3) Pure hypercholesterolemia: Code(s): E78.00 - Pure hypercholesterolemia, unspecified Plan: Continue statins. (4) Hypovitaminosis D: Code(s): E55.9 - Vitamin D deficiency, unspecified Plan: Continue vitamin-D supplements. Coding Level of Care Code Est Pt Level 4 (74918) Complex EM visit Add On G2211 Diagnoses Panlobular emphysema J43.1 Emphysema type: panlobular Gastroesophageal reflux disease, unspecified whether esophagitis present K21.9 Esophagitis presence: esophagitis presence not specified Pure hypercholesterolemia E78.00 Hypovitaminosis D E55.9 Time Spent (min) 21
== END 2024-02-16 16:11 | disposition home or self-care (01) ==
PROVIDERS: PCP Internal Medicine; Visit Provider Internal Medicine
DX: J43.1 Panlobular emphysema (principal); K21.9 Gastro-esophageal reflux disease without esophagitis; E78.00 Pure hypercholesterolemia, unspecified; E55.9 Vitamin D deficiency, unspecified
CPT/HCPCS: 99214; G2211

== ENCOUNTER 2024-04-20 10:53 | Outpatient (REF) | payer OTHER, SELFPAY ==
--- NOTE | ~2024-04-20 | MM_ITS ---
EXAMINATION: MM SCREENING DIGITAL BREAST TOMOSYNTHESIS, BILATERAL CLINICAL INFORMATION: Screening. Asymptomatic. COMPARISON: Mammography: Comparison is made with available priors TECHNIQUE: Digital breast mammography with tomosynthesis is performed in both the craniocaudal and mediolateral oblique views along with computer-aided detection (CAD). FINDINGS: There are scattered areas of fibroglandular density (ACR BI-RADS breast composition Category b). There are no significant masses, abnormal calcifications, or other abnormalities. MM/MM tomosynthesis screening BI IMPRESSION: No mammographic evidence of malignancy. ASSESSMENT: BI-RADS BI-RADS 1 - Negative RECOMMENDATION: Routine annual mammography screening. 1 year F/U This examination should not preclude the clinical evaluation of a suspicious palpable abnormality. This patient's information was entered into a reminder system with a target due date for their next mammogram. Electronically signed by: Trena Bryan DO 05/02/2024 03:16 PM EDT
== END 2024-04-20 10:54 | disposition home or self-care (01) ==
LOC: HO.MAMMO 10:53
PROVIDERS: PCP Internal Medicine; Visit Provider Internal Medicine
DX: Z12.31 Encounter for screening mammogram for malignant neoplasm of breast (principal)
CPT/HCPCS: 77063; 77067

== ENCOUNTER → 2024-04-20 11:45 | Outpatient (BNV) | payer OTHER, SELFPAY | PROVIDERS: PCP Internal Medicine; Visit Provider Internal Medicine | DX: Z12.31 Encounter for screening mammogram for malignant neoplasm of breast (principal) | CPT/HCPCS: 77063; 77067 ==

== ENCOUNTER 2024-04-30 09:49 | Outpatient (AMB) | payer OTHER, SELFPAY ==
[2024-04-30 09:55] VITALS: BP 136/72; BMI 32.5
--- NOTE | 2024-04-30 09:55 | MHC.PC.OV ---
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 Accompanied by: Self / Same As Patient Allergies lobster Allergy (Mild, Verified 04/30/24 10:13) Vomiting Medication List - Last Reconciled 04/30/24 by Viviana Guaman MD albuterol sulfate 90 mcg/actuation (ProAir RespiClick) 2 inhalations inhalation Q4-6H PRN albuterol sulfate 2.5 mg inhalation TID atorvastatin 40 mg PO DAILY 90 days calcium carbonate (Calcium 600) 600 mg PO BID 30 days cane As directed cholecalciferol (vitamin D3) 25 mcg PO DAILY 90 days dorzolamide 2% 1 drp ophthalmic (eye) BID koodlnzajbe-iothknrzf-huvucxbp 200-62.5-25 mcg (Trelegy Ellipta) 1 ea inhalation DAILY latanoprost 0.005% 1 drp ophthalmic (eye) BEDTIME loratadine 10 mg PO DAILY PRN 90 days montelukast 10 mg PO DAILY naproxen 500 mg PO BID 90 days omeprazole 20 mg PO DAILY Tobacco use date assessed: 09/15/23 Fall risk assessment: No Falls in past year Last assessed Fall Risk: 04/30/24 Dental Screening Dental Screen Date: 04/30/24 Did you have a dental visit in the last 12 months?: Yes Did you have a dental problem in the last 6 months where you did not have access to dental care?: No Was dental information given to patient?: Patient has dentist HPI HPI Comments History of Present Illness Details This is a 69-year-old female with emphysema, pure hypercholesterolemia and GERD that complains of having GERD even with omeprazole. I will start her on pantoprazole. I will order upper GI series. Emphysema stable with Trelegy and follow by pulmonology. Cholesterol well controlled with statins. Denies any chest pain or shortness on breath. [facility] Medical History Emphysema lung Vaginal pruritus Skin lesion GERD (gastroesophageal reflux disease) Oral thrush Severe asthma KEI (mycobacterium avium-intracellulare) Pernicious anemia Pure hypercholesterolemia Surgical History Hx of tubal ligation History of section History of cholecystectomy History of tonsillectomy Family History Father Diabetes Hypertension Stroke Mother Diabetes Hypertension Breast cancer, Onset Age: 69 Status post mastectomy Son No problems noted. Family/Other FH: mental illness Social History Household Members: None Household Members Other:: Housing: Apartment Alcohol intake: never Patient Tobacco Use Status: Never used Tobacco e-Cigarette/Vaping Use: Never Used Second Hand Smoke Exposure: No service: No Current occupational status: retired Cognitive needs: No Hearing needs: No Vision needs: No Female Reproductive History Menstrual Age of Menarche: 12 Questionnaire Thrive Questionnaire Date Thrive assessed: 09/15/23 BRIAN-7 AMB Questionnaire BRIAN-7 Date BRIAN - 7 assessed: 09/15/23 Source: Developed by Drs. Ky Fabian, Karissa Mullen, Clinton Stevens and colleagues, with an educational jona from [employer]. Review of Systems Const All systems reviewed & are unremarkable except as noted in HPI and below Card Denies chest pain at rest, Denies chest pain with activity, Denies edema, Denies irregular heart rhythm, Denies claudication, Denies dyspnea, Denies dyspnea on exertion, Denies orthopnea, Denies paroxysmal nocturnal dyspnea and Denies slow heart rate Resp Denies cough, Denies dyspnea and Denies dyspnea on exertion GI Denies abdominal pain, Denies change in bowel habits, Denies excessive flatus, Denies nausea and Denies vomiting Physical exam (Primary Care) Vital Signs: Last Vital Signs BP 136/72 04/30/24 09:55 BMI result Body Mass Index 32.5 BMI Assessment/Plan discussion: High BMI High, discussed plan: lifestyle, weight reduction, dietary and physical activity Tobacco/Smoking Status: Tobacco use Status Tobacco use date assessed 09/15/23 04/30/24 10:02 Patient Tobacco Use Status Never used Tobacco 04/30/24 10:02 e-Cigarette/Vaping Use Never Used 04/30/24 10:02 Thrive Assessment: Date of Thrive Assessment Date Thrive assessed 09/15/23 04/30/24 10:02 Resp Effort & Inspection: normal respiratory effort Auscultation: clear to auscultation bilaterally Cardio Jugular venous distension: no JVD Rate: regular rate Rhythm: regular rhythm Heart sounds: S1 normal heart sound present and S2 normal heart sound present Extrem General: Yes full ROM Office Procedures Flu Questionnaire Does the patient have a severe egg allergy?: No Does the patient have severe life threatening allergies?: No Does the patient have a fever or illness today?: No Has the patient ever had Guillain-Sanderson Syndrome?: No Has the patient ever had any past reaction to a flu shot?: No Immunizations Fluarix Triv [id number] (PF) 45 mcg (15 mcg x 3)/0.5 mL IM syringe Performing Provider: Viviana Guaman MD [facility] Administered by: PEDRO Fitzgerald on 04/30/24 10:22 Dose Route Admin Location Dispensed Lot Number Expiration Date NDC Early Childhood Teacher Assistant 0.5 mL IM Left Deltoid 0.5 mL [id number] 01/11/25 80116-509-57 [employer] VIS Given Date VIS Provided VIS Publication Date 04/30/24 Single Vaccine 21 Eligibility Eligibility Date Funding Source Not [facility] Eligible 04/30/24 Private Coding Level of Care Code Est Pt Level 3 (15515) Complex EM visit Add On G2211 Diagnoses Panlobular emphysema J43.1 Emphysema type: panlobular Gastroesophageal reflux disease, unspecified whether esophagitis present K21.9 Esophagitis presence: esophagitis presence not specified Pure hypercholesterolemia E78.00 Time Spent (min) 21 Assessment & Plan Assessment & Plan (1) Emphysema lung: Code(s): J43.9 - Emphysema, unspecified Category: Medical Qualifiers: Emphysema type: panlobular Qualified Code(s): J43.1 - Panlobular emphysema Plan: Continue Trelegy. Use rescue inhaler as needed. Follow-up with pulmonology. (2) GERD (gastroesophageal reflux disease): Code(s): K21.9 - Gastro-esophageal reflux disease without esophagitis Category: Medical Qualifiers: Esophagitis presence: esophagitis presence not specified Qualified Code(s): K21.9 - Gastro-esophageal reflux disease without esophagitis Plan: Discontinue omeprazole. Start pantoprazole. Upper GI series ordered. (3) Pure hypercholesterolemia: Code(s): E78.00 - Pure hypercholesterolemia, unspecified Category: Medical Plan: Continue statins. Continue low-cholesterol diet. Orders: Orders Influenza [id number] Immunization Today Z23 - Encounter for immunization [place] upper GI series Today K21.9 - Gastro-esophageal reflux disease without esophagitis Medications: New pantoprazole 40 mg PO DAILY 90 tabs 0RF 90 days Refilled calcium carbonate (Calcium 600) 600 mg PO BID 60 tabs 6RF 30 days
== END 2024-04-30 10:26 | disposition home or self-care (01) ==
PROVIDERS: PCP Internal Medicine; Visit Provider Internal Medicine
DX: J43.1 Panlobular emphysema (principal); K21.9 Gastro-esophageal reflux disease without esophagitis; E78.00 Pure hypercholesterolemia, unspecified; Z23 Encounter for immunization

== ENCOUNTER → 2024-04-30 09:49 | Outpatient (BNVA) | payer OTHER, SELFPAY | PROVIDERS: PCP Internal Medicine; Visit Provider Internal Medicine | DX: Z23 Encounter for immunization (principal); J43.1 Panlobular emphysema; K21.9 Gastro-esophageal reflux disease without esophagitis; E78.00 Pure hypercholesterolemia, unspecified | CPT/HCPCS: 90471; 90656; 99212 ==

== ENCOUNTER 2024-07-13 07:29 | Outpatient (REF) | payer OTHER, SELFPAY ==
--- NOTE | ~2024-07-13 | FL_ITS ---
EXAMINATION: XR FLUOROSCOPY UPPER GI WITH AIR CLINICAL INFORMATION: Dysphagia. Reflux. COMPARISON: None TECHNIQUE: Fluoroscopic air contrast upper GI examination was performed utilizing standard techniques with thin and thick barium and effervescent granules. Numerous spot images were obtained. FINDINGS: Lateral cine images of the oropharynx and hypopharynx demonstrate normal swallow mechanism with normal epiglottic inversion and soft palate elevation. No tracheal penetration, glottic or subglottic aspiration identified. No nasopharyngeal reflux present. Hypopharyngeal structures appear normal without evidence of mass or diverticulum. There is mild cricopharyngeal achalasia present. Dual and single contrast images of the esophagus demonstrate normal caliber, contour, and mucosal pattern. No evidence of stricture, mass, or ulcerations identified. Esophageal peristalsis is moderately disorganized. A small type I hiatal hernia is present. Gastroesophageal reflux is seen up to the thoracic inlet. Dual contrast and single contrast images of the stomach demonstrated a normal contour. There is suboptimal coating of the barium, which which limits evaluation of the gastric mucosa. The areae gastrica have a prominent appearance, suggestive of gastritis. No masses or ulcerations are seen. Contrast freely passed into the gastric antrum and duodenal bulb without delay. Single and air-contrast images of the duodenal bulb demonstrate no abnormality. The duodenal sweep has a normal appearance, course, and mucosal fold appearance. The imaged proximal jejunum has a normal fold pattern and caliber. FLUOROSCOPY TIME: 3 minutes 30 seconds Number of Spot Images: 12 Number of Cine: 13 DOSE AREA PRODUCT: [id number] uGy-m2 (microgray-meter squared) FL/FL upper GI w air IMPRESSION: 1. Mild cricopharyngeal achalasia. 2. Moderately disorganized esophageal peristalsis. 3. Small type I hiatal hernia with moderate to significant gastroesophageal reflux. 4. Limited evaluation of the gastric mucosa due to suboptimal coating of the barium. No obvious masses or ulcerations are seen. The areae gastrica have a prominent appearance, suggestive of gastritis. This procedure was performed by Osiel Carlos PA-C, and supervised by Dr. Kennedy Electronically signed by: Enrique Kennedy MD 07/13/2024 04:37 PM [facility] Workstation: [id number]
== END 2024-07-13 07:30 | disposition home or self-care (01) ==
LOC: HO.XRAY 07:29
PROVIDERS: PCP Internal Medicine; Visit Provider Internal Medicine
DX: K21.9 Gastro-esophageal reflux disease without esophagitis (principal)
CPT/HCPCS: 74246

== ENCOUNTER → 2024-07-13 07:30 | Outpatient (BNV) | payer OTHER, SELFPAY | PROVIDERS: PCP Internal Medicine; Visit Provider Physician Assistant Surgical | DX: R13.10 Dysphagia, unspecified (principal); K21.9 Gastro-esophageal reflux disease without esophagitis | CPT/HCPCS: 74246 ==

== ENCOUNTER 2024-09-19 12:38 | Outpatient (AMB) | payer OTHER, SELFPAY ==
[2024-09-19 12:44] VITALS: BP 160/49; PULSE 69; BMI 32.4
--- NOTE | 2024-09-19 12:44 | MHC.OFFVIS ---
Vital Signs 09/19/24 12:44 Height 4 ft 9 in Weight 149 lb 14.629 oz BMI 32.4 BP 160/49 H Blood Pressure Location Lt brachial Position Sitting Pulse 69 Intake Visit Reasons: Achalasia of cardia Intake Note: Gabbie presents in the office as a new patient for Achalasia of cardia. CC: She states that she is feeling better than she was before. She has some issues with her swallowing but states that she feels okay. Store Stock Associate Required: Yes Store Stock Associate Name: Renetta Allergies lobster Allergy (Mild, Verified 09/19/24 12:54) Vomiting HPI Comments Details: 69 y/o F with PMH of COPD, pernicious anemia, who is here for abnormal UGIS. Main CC is heartburn and globus sensation. Started many months ago. Was previously attributed to COPD flares. Sometimes also has sensation of food getting stuck radha hard dry foods like crackers. Chases it with liquid or regurgitates it. Cuts up food small. Does not have molars but uses dentures. Rena Lara 2019 - good prep. No polyps. UGIS 06/2024: 1. Mild cricopharyngeal achalasia. 2. Moderately disorganized esophageal peristalsis. 3. Small type I hiatal hernia with moderate to significant gastroesophageal reflux. 4. Limited evaluation of the gastric mucosa due to suboptimal coating of the barium. No obvious masses or ulcerations are seen. The areae gastrica have a prominent appearance, suggestive of gastritis. Started on pantoprazole 40 by PCP but doesnt think its helping. Takes it in AM on empty stomach. [facility] Medical History Emphysema lung Vaginal pruritus Skin lesion GERD (gastroesophageal reflux disease) Oral thrush Severe asthma KEI (mycobacterium avium-intracellulare) Pernicious anemia Pure hypercholesterolemia Surgical History Hx of colonoscopy History of esophagogastroduodenoscopy (EGD) Hx of tubal ligation History of section History of cholecystectomy History of tonsillectomy Family History Father Diabetes Hypertension Stroke Mother Diabetes Hypertension Breast cancer, Onset Age: 69 Status post mastectomy Son No problems noted. Family/Other FH: mental illness Social History Household Members: None Household Members Other:: Housing: Apartment Alcohol intake: never Patient Tobacco Use Status: Never used Tobacco e-Cigarette/Vaping Use: Never Used Second Hand Smoke Exposure: No service: No Current occupational status: retired Cognitive needs: No Hearing needs: No Vision needs: No Female Reproductive History Menstrual Age of Menarche: 12 Review of Systems Const All systems reviewed & are unremarkable except as noted in HPI and below Physical Exam Vital Signs: Last Vital Signs Pulse 69 09/19/24 12:44 BP 160/49 H 09/19/24 12:44 BMI result Body Mass Index 32.4 No apparent distress Nonicteric Abdomen soft, nondistended Alert and oriented x3, normal gait Assessment & Plan Assessment & Plan (1) Gastritis: Code(s): K29.70 - Gastritis, unspecified, without bleeding Category: Medical (2) GERD (gastroesophageal reflux disease): Code(s): K21.9 - Gastro-esophageal reflux disease without esophagitis Category: Medical Qualifiers: Esophagitis presence: esophagitis presence not specified Qualified Code(s): K21.9 - Gastro-esophageal reflux disease without esophagitis (3) Cricopharyngeal achalasia: Code(s): K22.0 - Achalasia of cardia Category: Medical Plan Reviewed with the patient that difficulty swallowing and sensation of food getting stuck is likely from cricopharyngeal narrowing noted on the upper GI series. Will set her up for upper endoscopy with dilation. In addition, also has reflux and mild gastritis. Does not report response to pantoprazole, so will switch her to a different PPI. Plan: -stop pantoprazole -start esomeprazole 20 mg once daily, take on an empty stomach. -EGD to be scheduled -patient advised to cut up food in very small pieces and chew thoroughly to avoid food obstruction Follow-up after EGD Medications: New esomeprazole magnesium 20 mg PO DAILY 90 caps 1RF Discontinued pantoprazole Discontinued Reason: Doctor's Order 40 mg PO DAILY 90 days 90 tabs 0RF Coding Level of Care Code New Pt Level 4 (29392) Diagnoses Gastritis K29.70 Gastroesophageal reflux disease, unspecified whether esophagitis present K21.9 Esophagitis presence: esophagitis presence not specified Cricopharyngeal achalasia K22.0
--- OUTSIDE RECORDS SUMMARY | 2024-09-19 15:24 | XMS_ITS | Encounter Summary ---
Author Organization [facility] Address [address] [place] [address] Care Team Providers Care Tree Wrapper Name Role Phone Unavailable Primary Care Provider Unavailabl e Encounter Details Date Type Department Care Team (Latest Contact Info) Description 10/19/2018 Abstract [facility] CONVERSIONS Dental, Provider, DDS Social History Tobacco Use Types Packs/Day Years Used Date Smoking Tobacco: Never Assessed Comments Unknown Sex and Gender Information Value Date Recorded Sex Assigned at Female 05/24/2022 10:14 AM EDT Legal Sex Female 10:14 AM EDT Gender Identity Female 08/12/2022 9:58 AM EST Sexual Orientation Choose not to disclose 2021 10:14 AM EDT documented as of this encounter Plan of Treatment Upcoming Encounters Date Type Department Care Team (Late st Contact Info) Description 10/25/2024 8:00 AM EDT Office Visit [facility] ADULT DENTAL [address] [place] [address] Con Therese [address] [place] [address] documented as of this encounter Visit Diagnoses Not on filedocumented in this encounter
--- OUTSIDE RECORDS SUMMARY | 2024-09-19 15:24 | XMS_ITS | Clinical Summary ---
Author Organization [employer] [facility] it Address [address] [place] [address] Care Team Providers Care Pca Name Role Phone Unavailable Primary Care Provider Unavailabl e Social History Tobacco Use Types Packs/Day Years Used Date Smoking Tobacco: Never Assessed Comments Unknown Sex and Gender Information Value Date Recorded Sex Assigned at Not on file Legal Sex Female 4:51 AM EST Gender Identity Not on file Sexual Orientation Not on file Plan of Treatment Upcoming Encounters Date Type Department Care Team (Late st Contact Info) Description 09/28/2024 10:00 AM EST Appointment [facility] Pulmonary [address] [place] [address] Health Maintenance Due Date Last Done Comments Breast Cancer Screening 1955 DTaP,Tdap,and Td Vaccines (1 - Tdap) 1974 Pneumococcal Vaccine: 50+ Ye ars (1 of 2 - PCV) 1974 Zoster Vaccines (1 of 2) 2005 RSV Immunization Patients 60 + Years Old (1 - Risk 60-74 years 1-dose series) 2015 COVID-19 Vaccine (1 - 2023-2 5 season) 2024 Influenza Vaccine (#1) 2024 Colorectal Cancer Screening: Colonoscopy 09/06/2024 Depression Screening 09/06/2024 Falls Risk Assessment 09/06/2024 Hepatitis C Screening 09/06/2024 Medicare Annual Wellness Visit 09/06/2024 Osteoporosis Screening (Bone Density Screening) 09/06/2024 Social Influencers of Health Screening 09/06/2024 HIB Vaccines Aged Out No longer eligi ble based on patient's age to complete this topic HPV Vaccines Aged Out No longer eligi ble based on patient's age to complete this topic Hepatitis A Vaccines Aged Out No long er eligible based on patient's age to complete this topic Hepatitis B Vaccines Aged Out No long er eligible based on patient's age to complete this topic IPV Vaccines Aged Out No longer eligi ble based on patient's age to complete this topic MMR Vaccines Aged Out No longer eligi ble based on patient's age to complete this topic Meningococcal ACWY Vaccine Aged Out N o longer eligible based on patient's age to complete this topic Meningococcal B Vacine Aged Out No lo nger eligible based on patient's age to complete this topic RSV Immunization Patients Un seth 20 months Aged Out No longer eligible b ased on patient's age to complete this topic Varicella Vaccines Aged Out No longer eligible based on patient's age to complete this topic Insurance [employer] MEDICARE Member Subscriber Plan / Payer (Ef fective 2023-Present) Name:Gabbie Alejandre Relation to Subscriber:Self Name:Gabbie Alejandre Payer ID:[id number] Group ID:[id number] Type:Not on file Address: [place] [address] [address] [id number]
--- OUTSIDE RECORDS SUMMARY | 2024-09-19 15:25 | XMS_ITS | Clinical Summary ---
Author Organization [employer] Address [address] [place] [address] Care Team Providers Care Repairer Controller Tester Name Role Phone Unavailable Primary Care Provider Unavailabl e Allergies No known active allergies Medications albuterol 108 (90 Base) MCG/ACT inhaler Inhale every 6 (six) hours. 4 Active atorvastatin (Lipitor) 80 MG tablet Take 1 tablet by mouth at bed time. Active [facility] Calcium 600 MG tablet Take 600 mg by mouth 2 times daily. 2 Active dorzolamide (Trusopt) 2 % ophthalmic solution Administer 1 drop into affected eye(s) every 8 (eight) hours. Active D3-1000 25 MCG (1000 UT) capsule TOME IVAN C PSULA TODOS LOS D 2 Active Fluticasone-Ume clidin-Vilant (Trelegy Ellipta) 200-62.5-25 MCG/ACT aerosol powder Inhale 1 puff at bed time. Active ibuprofen 600 MG tablet Take 1 tablet by mouth every 12 (twelve) hours. 2 Active montelukast (Singulair) 10 MG tablet Take 1 tablet by mouth at bed time. Active omeprazole OTC (PriLOSEC OTC) 20 MG EC tablet Take 1 tablet by mouth at bed time. 4 Active Creon 1335-3621 units capsule TOME 1 C PSULA POR V A ORAL DOS VECES AL D A *DO NOT EXCEED 10,000 UNITS/KG LIPASE PER 24 HOURS* 2 Active Spiriva HandiHaler 18 MCG inhalation capsule INHALE 1 CAPSULE VIA HANDIHALER ONCE DAILY AT THE SAME TIME EVERY DAY 2 Active loratadine (Claritin) 10 MG tablet TOME IVAN TABLETA TODOS LOS D CUANDO SEA NECESARIO FOR ALLERGIES 4 Active Active Problems Problem Noted Date Diagnosed Date Ill-fitting dentures 01/05/2024 Extruded tooth 12/20/2023 Excessive attrition of teeth, limited to enamel 12/20/2023 Dental plaque 12/20/2023 Partial edentulism 12/20/2023 Hyperlipidemia 11/03/2012 Osteoarthritis of knee 05/19/2012 Asthma 12/17/2011 Immunizations Name Administration Dates Next Due Hep A, Adult 12/10/2015 Hep B, adult 10/31/2008,03/28/2008,02/23/2008 Influenza High-dose Quadriva lent Preservative Free 05/06/2022,04/08/2021 Influenza injectable quadriv alent IIV4 with preservative 05/29/2018 Influenza injectable quadriv alent preservative free 06/12/2019,07/07/2017 Influenza, IIV3, injectable 07/09/2015, 4 Influenza, Split (incl. pat fied surface antigen) 04/04/2013,04/12/2012 Pneumococcal Polysaccharide PPSV23 01/14/2022, TD (adult), 2 Lf tetanus tox oid, preservative free, adsorbed 04/08/1997 Tdap 12/31/2015,04/21/2010 Zoster, Recombinant 05/28/2022,01/14/2022 Social History Tobacco Use Types Packs/Day Years Used Date Smoking Tobacco: Never Passive Smoke Exposure: Never Smokeless Tobacco: Never Tobacco Cessation:Counseling Given: Not Answered Alcohol Use Standard Drinks/Week Comments Never 0 (1 standard drink = 0.6 oz pur e alcohol) Comments Unknown Sex and Gender Information Value Date Recorded Sex Assigned at Female 05/24/2022 10:14 AM EDT Legal Sex Female 10:14 AM EDT Gender Identity Female 08/12/2022 9:58 AM EST Sexual Orientation Choose not to disclose 2021 10:14 AM EDT Last Filed Vital Signs Vital Sign Reading Time Taken Comments Blood Pressure 120/60 01/09/2024 1:59 PM EDT Pulse 64 12/20/2023 9:32 AM EDT Temperature - - Respiratory Rate - - Oxygen Saturation - - Inhaled Oxygen Concentration - - Weight - - Height - - Body Mass Index - - Plan of Treatment Upcoming Encounters Date Type Department Care Team (Late st Contact Info) Description 10/25/2024 8:00 AM EDT Office Visit [facility] ADULT DENTAL [address] [place] [address] Mario Andujararis [address] [place] [address] Health Maintenance Due Date Last Done Comments CT Colonography 1955 Colonoscopy 1955 Colorectal Cancer Screening 1955 Depression Screening 1955 FIT DNA/Cologuard 1955 FIT 1955 FOBT 1955 SDOH Screening 1955 Sigmoidoscopy 1955 Alcohol/Substance Use Screening 1967 Hepatitis C Screening 1973 Mammogram 1995 RSV Patients and Patients Aged 60 years or older (1 - Risk 60-74 years 1-dose series) 2015 Pneumococcal Vaccine: 50+ Years (2 of 2 - PCV) 01/14/2023 01/14/2022, 09/09/2005 COVID-19 Vaccine (2023- season) 2024 12/07/2021, 06/10/2021, 10/21/2020, Additional history exists Dental Oral Exam 06/22/2024 12/20/2023 Dental Prophylaxis 06/22/2024 12/20/2023 Dental X-Ray: Bitewings 12/20/2024 12/20/2023 Tobacco Screening 01/08/2025 01/09/2024 Dental X-Ray: Full Mouth 01/21/2025 01/20/2022 DTaP/Tdap/Td Vaccines (3 - Td or Tdap) 12/30/2025 12/31/2015, 04/21/2010, 04/08/1997 Hepatitis B Vaccines Completed 10/31/2008, 03/28/2008, 02/23/2008 Hepatitis A Vaccines Aged Out 12/10/2015 No long er eligible based on patient's age to complete this topic Zoster Vaccines Completed 05/28/2022, 01/14/2022 Influenza Vaccine Completed 04/30/2024, , 05/06/2022, Additional history exists HIB Vaccines Aged Out No longer eligi ble based on patient's age to complete this topic HPV Vaccines Aged Out No longer eligi ble based on patient's age to complete this topic IPV Vaccines Aged Out No longer eligi ble based on patient's age to complete this topic Meningococcal Vaccine Aged Out No ignacia radha eligible based on patient's age to complete this topic RSV under 20 months Aged Out No longe r eligible based on patient's age to complete this topic Rotavirus Vaccines Aged Out No longer eligible based on patient's age to complete this topic Procedures Procedure Name Priority Date/Time Associated Diagnosis Comments Full PROPHYLAXIS - ADULT Routine 024 10:00 AM EDT Dental plaque BITEWINGS - 4 RADIOGRAPHIC IMAGES Routine 12/20/2023 10:00 AM EDT Extruded tooth Excessive attrition of teeth, limited to enamel Dental plaque Missing teeth, acquired PERIODIC ORAL EVALUATION - ESTABLISHED PATIENT Routine 12/20/2023 10:00 AM EDT from Last 3 Months or Most Recently Relevant to Health Maintenance Insurance [facility] MEDICAID STAND ADULT
--- OUTSIDE RECORDS SUMMARY | 2024-09-19 15:25 | XMS_ITS | Encounter Summary ---
Author Organization [facility] Address [address] [place] [address] Care Team Providers Care 2 Year Olds Preschool Teacher Name Role Phone Unavailable Primary Care Provider Unavailabl e Encounter Details Date Type Department Care Team (Latest Contact Info) Description 06/02/[address] [facility] CONVERSIONS Dental, Provider, DDS Social History Tobacco [...] Description 10/25/2024 8:00 AM EDT Office Visit [facility] ADULT DENTAL [address] [place] [address] Mario Andujararis [address] [place] [address] documented as of this encounter Visit Diagnoses Not on filedocumented in this encounter
== END 2024-09-19 15:30 | disposition home or self-care (01) ==
PROVIDERS: PCP Internal Medicine; Visit Provider Internal Medicine
DX: K29.70 Gastritis, unspecified, without bleeding (principal); K21.9 Gastro-esophageal reflux disease without esophagitis; K22.0 Achalasia of cardia
CPT/HCPCS: 99204

== ENCOUNTER → 2024-09-19 12:38 | Outpatient (BNVA) | payer OTHER, SELFPAY | PROVIDERS: PCP Internal Medicine; Visit Provider Internal Medicine | DX: K22.0 Achalasia of cardia (principal); K29.70 Gastritis, unspecified, without bleeding; K21.9 Gastro-esophageal reflux disease without esophagitis | CPT/HCPCS: 99202 ==

== ENCOUNTER 2024-09-26 10:35 | Outpatient (AMB) | payer OTHER, SELFPAY ==
--- NOTE | 2024-09-26 10:36 | MHC.OFFVIS ---
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 Currently not sexually active. Denies any vaginal dryness or irritation. STI testing offered; she declined. Attempting to eat a healthy diet with calcium and vitamin D. No regular exercise. Last pap smear; 2020. Last mammogram; 2023. Colonoscopy is UTD. Denies any family history of ovarian or colon cancer. FH breast cancer-mom. [facility] Medical History Emphysema lung Vaginal pruritus Skin lesion GERD (gastroesophageal reflux disease) Oral thrush Severe asthma KEI (mycobacterium avium-intracellulare) Pernicious anemia Pure hypercholesterolemia Surgical History Hx of colonoscopy History of esophagogastroduodenoscopy (EGD) Hx of tubal ligation History of section History of cholecystectomy History of tonsillectomy Family History Father Diabetes Hypertension Stroke Mother Diabetes Hypertension Breast cancer, Onset Age: 69 Status post mastectomy Son No problems noted. Family/Other FH: mental illness Social History Household Members: None Household Members Other:: Housing: Apartment Alcohol intake: never Patient Tobacco Use Status: Never used Tobacco e-Cigarette/Vaping Use: Never Used Second Hand Smoke Exposure: No service: No Current occupational status: retired Cognitive needs: No Hearing needs: No Vision needs: No Female Reproductive History Menstrual Age of Menarche: 12 Total pregnancies: 4 Full term: 4 Number of Living Children: 3 Date of last pap smear: 04/14/21 (neg pap and hpv) History of abnormal pap smear: Yes (12/30 lgsil 2/09 ascus +hpv 04/03 ascus 07/05 lgsil 2/15 asc-h) Date of Mammogram: 04/20/24 (Birad 1) Review of Systems Const All systems reviewed & are unremarkable except as noted in HPI and below Reports as per HPI Eyes Reports no additional complaints ENT Reports no additional complaints Card Reports no additional complaints Resp Reports no additional complaints GI Reports as per HPI and Reports no additional complaints Reports as per HPI Musc Reports no additional complaints Skin/Breast Reports as per HPI Neuro Reports no additional complaints Psych Reports no additional complaints Endo Reports no additional complaints Dov/Lymph Reports no additional complaints Aller/Immun Reports no additional complaints Physical Exam Vital Signs: Last Vital Signs BP 122/72 09/26/24 10:38 BMI result Body Mass Index 32.5 Const General: cooperative, healthy appearing, no acute distress, well developed and alert Orientation/consciousness: patient oriented x3 HEENT Head: Yes normal to inspection Eyes General: appearance normal, both eyes and all related structures Neck Neck: Yes normal visual inspection Thyroid: Thyroid normal Chest Chest palpation & inspection: normal inspection of the chest and other (no puckering, dimpling, peau de orange, retraction, discharge, masses) Breast/axilla inspection: normal inspection of the breasts Breast/axilla palpation: normal palpation of the breasts Resp Effort & Inspection: normal respiratory effort GI Inspection: Yes normal to inspection Palpation (GI): Soft to palpation Rectal Exam - Female: deferred General: Yes bladder normal to palpation External Female Exam: normal external appearance and normal appearance of the urethra Speculum Exam - Vagina: normal appearance of the vagina, normal palpation, normal vaginal discharge and vagina atrophic Speculum Exam - Cervix: normal appearance of the cervix and normal palpation Bimanual exam- vagina & uterus: normal bimanual exam, normal palpation, uterine size normal, bladder normal to palpation, normal palpation and non-tender Bimanual Exam- Adnexa, other: no masses Skin General skin exam: no rashes or lesions noted Rashes: no rashes Neuro General: patient oriented x3 Cognition (Neuro): normal cognition Extrem General: Yes normal to inspection Psych Attitude: cooperative Thought process: Normal thought process present Assessment & Plan Assessment & Plan (1) Encounter for annual routine gynecological examination: Code(s): Z01.419 - Encounter for gynecological examination (general) (routine) without abnormal findings Category: Medical Plan Discussed: Current recommendations for pap smears per ASCCP guidelines. Breast awareness, periodic self breast exams and yearly mammogram. Maintain a healthy lifestyle, well balanced diet including Calcium 1,200 mg and Vitamin D 600 IU daily, and routine exercise. Contact the office with any postmenopausal bleeding. Patient verbalizes understanding and agrees to the plan of care. She was given opportunity to ask questions and all questions were answered to the best of my ability. 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 This note is constructed using voice recognition software. While every effort has been made to ensure accuracy, supervisor clam bed errors may have been included. Coding Level of Care Code Est Pt Prev Care >65y(23296) Diagnoses Encounter for annual routine gynecological examination Z01.419
[2024-09-26 10:38] VITALS: BP 122/72; BMI 32.5
--- OUTSIDE RECORDS SUMMARY | 2024-09-26 12:32 | XMS_ITS | Clinical Summary ---
Author Organization [facility] it Address [address] [place] [address] Care Team Providers Care Pulverizing And Sifting Operator Name Role Phone Unavailable Primary Care Provider [...] Info) Description 09/28/2024 10:[address] [facility] Pulmonary [address] [place] [address] Health Maintenance Due Date Last [...] ID:[id number] Group ID:[id number] Type:Not on file Address: [place] [address] [address] [address]
--- OUTSIDE RECORDS SUMMARY | 2024-09-26 12:32 | XMS_ITS | Clinical Summary ---
Author Organization [employer] Address [address] [place] [address] Care Team Providers Care Pick Pulling Machine Operator Name Role Phone Unavailable Primary Care [...] mouth at bed time. 4 Active Creon 9055-8073 units capsule TOME 1 C PSULA POR [...] Description 10/25/2024 8:00 AM EDT Office Visit [facility] ADULT DENTAL [address] [place] [address] Mario Andujararis [address] [place] [address] Health Maintenance Due Date Last Done Comments [...] Most Recently Relevant to Health Maintenance Insurance [facility] MEDICAID STAND ADULT
--- OUTSIDE RECORDS SUMMARY | 2024-09-26 12:32 | XMS_ITS | Encounter Summary ---
Author Organization [employer] [facility] Address [address] [place] [address] Care Team Providers Care Header Boss Name Role Phone Unavailable Primary Care Provider Unavailabl e Encounter Details Date Type Department Care Team (Latest Contact Info) Description 10/19/2018 Abstract [facility] CONVERSIONS Dental, Provider, DDS Social History [...] Description 10/25/2024 8:00 AM EDT Office Visit [facility] ADULT DENTAL [address] [place] [address] Con Therese [address] [place] [address] documented as of this encounter Visit Diagnoses Not on filedocumented in this encounter
--- OUTSIDE RECORDS SUMMARY | 2024-09-26 12:32 | XMS_ITS | Encounter Summary ---
Author Organization [facility] Address [address] [place] [address] Care Team Providers Care Belt Builder Helper Name Role Phone Unavailable Primary Care Provider Unavailabl e Encounter Details Date Type Department Care Team (Latest Contact Info) Description 06/02/2021 Abstract [facility] CONVERSIONS Dental, Provider, DDS Social History Tobacco [...] Description 10/25/2024 8:00 AM EDT Office Visit [facility] ADULT DENTAL [address] [place] [address] Mario Andujararis [address] [place] [address] documented as of this encounter Visit Diagnoses Not on filedocumented in this encounter
== END 2024-09-26 12:33 | disposition home or self-care (01) ==
LOC: HO.HWS 10:35
PROVIDERS: PCP Internal Medicine; Visit Provider Advanced Practice Midwife
DX: Z01.419 Encounter for gynecological examination (general) (routine) without abnormal findings (principal)
CPT/HCPCS: 99397; 99459

== ENCOUNTER → 2024-09-26 10:35 | Outpatient (BNVA) | payer OTHER, SELFPAY | PROVIDERS: PCP Internal Medicine; Visit Provider Advanced Practice Midwife | DX: Z01.419 Encounter for gynecological examination (general) (routine) without abnormal findings (principal) | CPT/HCPCS: 99397; 99459 ==

== ENCOUNTER → 2024-10-31 08:41 | Outpatient (BNVA) | payer OTHER, SELFPAY | PROVIDERS: PCP Internal Medicine; Visit Provider Internal Medicine | DX: E78.00 Pure hypercholesterolemia, unspecified (principal) | CPT/HCPCS: 96127 ==

== ENCOUNTER 2024-11-22 14:10 | Outpatient (AMB) | payer OTHER, SELFPAY ==
--- NOTE | 2024-11-22 14:18 | MHC.PC.OV ---
Vital Signs 11/22/24 14:19 Height 4 ft 9 in Weight 151 lb BMI 32.7 BP 126/62 Blood Pressure Location Lt brachial Position Sitting Pulse 74 Pulse Source Pulse Oximeter Pulse Oximetry (%) 97 Oxygen Delivery Method Room Air Intake Visit Reasons: annual exam Intake Note: Patient here for an annual physical exam Health Information Technician Required: No Accompanied by: Self / Same As Patient Allergies lobster Allergy (Mild, Verified 11/22/24 14:34) Vomiting Medication List - Last Reconciled 11/22/24 by Viviana Guaman MD albuterol sulfate 2.5 mg inhalation TID albuterol sulfate 90 mcg/actuation inhalation atorvastatin 40 mg PO DAILY 90 days calcium carbonate (Calcium 600) 600 mg PO BID 30 days cane As directed cholecalciferol (vitamin D3) 25 mcg PO DAILY 90 days dorzolamide 2% 1 drp ophthalmic (eye) BID esomeprazole magnesium 20 mg PO DAILY bfstzvuxyoh-yjdwignkk-vegorbpr 200-62.5-25 mcg (Trelegy Ellipta) 1 ea inhalation DAILY latanoprost 0.005% 1 drp ophthalmic (eye) BEDTIME loratadine 10 mg PO DAILY PRN 90 days montelukast 10 mg PO DAILY naproxen 500 mg PO BID 90 days Tobacco use date assessed: 10/31/24 Fall risk assessment: No Falls in past year Last assessed Fall Risk: 11/22/24 Dental Screening Dental Screen Date: 10/31/24 HPI HPI Comments History of Present Illness Details The patient is a 69-year-old female presenting for an annual physical examination. She has a significant past medical history of emphysema, though currently denies any acute respiratory complaints. The patient underwent an esophageal dilation procedure recently due to achalasia. Her surgical history includes four deliveries and cholecystectomy. There are no current nicotine or alcohol use reports. Has KEI follow by pulmonology. The patient has been diligent in maintaining up-to-date vaccinations and screenings; she has had the pneumococcal vaccine post-65, a tetanus booster due in 2025, and her last mammogram was conducted in the previous year. Bone density screening is due once again, last conducted in 2021, and colonoscopy performed in 2019 is set for follow-up in 2028. There is a noted family history of significant medical conditions including stroke, breast cancer, diabetes, hypertension, and Alzheimer's. - Pneumococcal vaccination received after age 65 - Tetanus booster received in 2016; next due in 2025 - Mammography conducted in March of the previous year - Bone densitometry last performed in 2021 - Colonoscopy completed in 2018, with a follow-up due in 2028 - Laboratory tests planned to be done fasting - T-spot test planned for tuberculosis as part of routine screening [facility] Medical History Emphysema lung Vaginal pruritus Skin lesion GERD (gastroesophageal reflux disease) Oral thrush Severe asthma KEI (mycobacterium avium-intracellulare) Pernicious anemia Pure hypercholesterolemia Surgical History Hx of colonoscopy History of esophagogastroduodenoscopy (EGD) Hx of tubal ligation History of section History of cholecystectomy History of tonsillectomy Family History Father Diabetes Hypertension Stroke Mother Diabetes Hypertension Breast cancer, Onset Age: 69 Status post mastectomy Son No problems noted. Family/Other FH: mental illness Social History Household Members: None Household Members Other:: Housing: Apartment Alcohol intake: never Patient Tobacco Use Status: Never used Tobacco e-Cigarette/Vaping Use: Never Used Second Hand Smoke Exposure: No service: No Current occupational status: retired Cognitive needs: No Hearing needs: No Vision needs: No Female Reproductive History Menstrual Age of Menarche: 12 Questionnaire Thrive Questionnaire Date Thrive assessed: 10/31/24 I am a: Patient What is your living situation today?: I choose not to answer this question Within the past 12 months, did the food you bought not last and you didn't have the money to get more?: I choose not to answer this question Within the past 12 months, did you worry whether your food would run out before you got money to buy more?: I choose not to answer this question Do you have trouble paying for medicines?: I choose not to answer this question Do you have trouble getting transportation to medical appointments?: I choose not to answer this question Do you have trouble paying your heating and electricity bill?: I choose not to answer this question Do you have trouble taking care of your child, family member or friend?: I choose not to answer this question Do you have trouble with day-to-day activities such as bathing, preparing meals, shopping, managing finances, etc.?: I choose not to answer this question Are you currently unemployed and looking for a job?: I choose not to answer this question Are you interested in more education?: I choose not to answer this question Please select the resources that you would like help with: None Currently or been in a relationship where the following occur: I choose not to answer THRIVE Score: 0 BRIAN-7 AMB Questionnaire BRIAN-7 Date BRIAN - 7 assessed: 10/31/24 Source: Developed by Drs. Ky Fabian, Karissa Mullen, Clinton Stevens and colleagues, with an educational jona from [employer]. Review of Systems Const All systems reviewed & are unremarkable except as noted in HPI and below ENT Denies change in voice, Denies nasal discharge and Denies sinus pain Card Denies chest pain at rest, Denies chest pain with activity, Denies edema, Denies irregular heart rhythm, Denies claudication, Denies dyspnea, Denies dyspnea on exertion, Denies orthopnea, Denies paroxysmal nocturnal dyspnea and Denies slow heart rate Resp Denies cough, Denies dyspnea and Denies dyspnea on exertion GI Denies abdominal pain, Denies change in bowel habits, Denies excessive flatus, Denies nausea and Denies vomiting Neuro Denies lack of coordination Physical exam (Primary Care) Vital Signs: Last Vital Signs Pulse 74 11/22/24 14:19 BP 126/62 11/22/24 14:19 Pulse Ox 97 11/22/24 14:19 Oxygen Delivery Method Room Air 11/22/24 14:19 BMI result Body Mass Index 32.7 BMI Assessment/Plan discussion: High BMI High, discussed plan: lifestyle, weight reduction, dietary and physical activity Tobacco/Smoking Status: Tobacco use Status Tobacco use date assessed 10/31/24 11/22/24 14:28 Patient Tobacco Use Status Never used Tobacco 11/22/24 14:28 e-Cigarette/Vaping Use Never Used 11/22/24 14:28 Thrive Assessment: Date of Thrive Assessment Date Thrive assessed 10/31/24 11/22/24 14:28 Currently or been in a relationship where the following occur: I choose not to answer HENMT Head: Yes normal to inspection, Yes normocephalic and Yes atraumatic Ears: external ears normal Eyes General: appearance normal, both eyes and all related structures Eyelids: Yes eyelids normal Conjunctivae: conjunctivae normal Neck Neck: Yes normal visual inspection and Yes supple Resp Effort & Inspection: normal respiratory effort Auscultation: clear to auscultation bilaterally Cardio Jugular venous distension: no JVD Rate: regular rate Rhythm: regular rhythm Heart sounds: S1 normal heart sound present and S2 normal heart sound present GI Inspection: Yes normal to inspection Palpation (GI): Soft to palpation and nontender Auscultation: normal bowel sounds Skin General skin exam: no rashes or lesions noted Neuro General: no focal motor deficits Extrem General: Yes full ROM Psych Appearance: grossly normal Coding Level of Care Code Est Pt Prev Care >65y(60082) Diagnoses Physical exam Z00.00 Panlobular emphysema J43.1 Emphysema type: panlobular KEI (mycobacterium avium-intracellulare) A31.0 Time Spent (min) 30 Assessment & Plan Assessment & Plan (1) Physical exam: Code(s): Z00.00 - Encounter for general adult medical examination without abnormal findings Category: Medical (2) Emphysema lung: Code(s): J43.9 - Emphysema, unspecified Category: Medical Qualifiers: Emphysema type: panlobular Qualified Code(s): J43.1 - Panlobular emphysema (3) KEI (mycobacterium avium-intracellulare): Code(s): A31.0 - Pulmonary mycobacterial infection Category: Medical Plan The patient?s annual physical exam included a comprehensive review of her health status, during which we confirmed that her emphysema is stable without acute episodes. Her achalasia has been managed with a recent esophageal dilation, and she understands the need for consistent follow-up. We reviewed her immunizations and screening procedures, emphasizing the importance of maintaining preventative measures. Her vaccinations for pneumococcal disease and tetanus are up-to-date. We discussed the timeline for her next mammogram and colonoscopy. Further, she will perform fasting laboratory work, including a tuberculosis screening test. Her family history was reviewed given its relevance to potential cardiovascular and cancer risks. Patient was informed and verbally consented to the use of an ambient scribe for clinic note documentation during this visit. I discussed with the patient her current stable respiratory status, reviewing her past treatment for achalasia and recent esophageal dilation. The need for regular follow-up was emphasized. I clarified the importance of keeping her vaccinations current and explained the timelines for upcoming health screenings including mammograms and colonoscopy. We further determined it was necessary to perform some fasting laboratory tests including a T-spot to screen for tuberculosis. Our discussions also addressed her family history of cardiovascular and oncological matters, ensuring she understands the importance of vigilant preventative care and monitoring. Orders: Orders Vitamin D 25-OH Total Today E55.9 - Vitamin D deficiency, unspecified XR DEXA axial skeleton Today Z78.0 - Asymptomatic menopausal state Comprehensive Ephraim. Panel Fast Today K22.0 - Achalasia of cardia Lipid Panel Today E78.5 - Hyperlipidemia, unspecified MM tomosynthesis screening BI Today Z12.31 - Encounter for screening mammogram for malignant neoplasm of breast T Spot TB Today Z11.1 - Encounter for screening for respiratory tuberculosis Patient Instructions: - Schedule follow-up for routine evaluations, including mammogram and bone density test - Ensure pneumococcal and tetanus vaccinations are up-to-date - Continue routine screenings with colonoscopy scheduled in 2028 - Complete fasting laboratory work as discussed - Obtain a T-spot tuberculosis test as planned - Continue follow-up as needed for achalasia and monitor any respiratory symptoms - Maintain awareness of family history and inform of any new health concerns or changes
[2024-11-22 14:19] VITALS: BP 126/62; PULSE 74; O2SAT 97; BMI 32.7
--- OUTSIDE RECORDS SUMMARY | 2024-11-22 16:22 | XMS_ITS | Encounter Summary ---
Author Organization [employer] [facility] Address [address] [place] [address] Care Team Providers Care Line Tester Name Role Phone Unavailable Primary Care Provider Unavailabl e Encounter Details Date Type Department Care Team (Latest Contact Info) Description 06/02/2021 Abstract [facility] CONVERSIONS Dental, Provider, DDS Social History [...] Care Team (Late st Contact Info) Description 05/01/2025 8:00 AM EDT Office Visit [facility] ADULT DENTAL [address] [place] [address] Mario Andujararis [address] [place] [address] documented as of this encounter Visit Diagnoses Not on filedocumented in this encounter
--- OUTSIDE RECORDS SUMMARY | 2024-11-22 16:22 | XMS_ITS | Clinical Summary ---
Author Organization [employer] Address [address] [place] [address] Care Team Providers Care Laundry Folder Name Role Phone Unavailable Primary Care Provider [...] mouth at bed time. 4 Active Creon 4096-1242 units capsule TOME 1 C PSULA POR [...] CUANDO SEA NECESARIO FOR ALLERGIES 4 Active esomeprazole (NexIUM) [address] capsule TOME 1 C PSULA POR V A ORAL A DIARIO 5 Active latanoprost (Xalatan) 0.005 % ophthalmic solution PONGA IVAN GOTA EN LOS DOS OJOS TODOS LOS FOX POR LA NOCHE 5 Active calcium carbonate 1500 (600 Ca) MG tablet TOME 1 TABLETA POR V A ORAL DOS VECES AL D A 5 Active naproxen (Naprosyn) 500 MG tablet TOME IVAN TABLETA (500 MG) ORALLY 2 TIMES A DAY FOR 90 DAYS 5 Active pantoprazole (ProtoNix) 40 MG EC tablet Take 1 tablet by mouth Once per day. 5 Active Active Problems Problem Noted Date Diagnosed Date Localized gingival recession 10/25/2024 Ill-fitting dentures 01/05/2024 Extruded tooth 12/20/2023 Excessive attrition of teeth, limited to enamel 12/20/2023 Dental plaque 12/20/2023 Partial edentulism 12/20/2023 Hyperlipidemia 11/03/2012 Osteoarthritis of knee 05/19/2012 Asthma 12/17/2011 Encounters Date Type Department Care Team Description 10/25/2024 8:00 AM EDT Office Visit [facility] ADULT DENTAL [address] [place] [address] Therese Andujar Dental plaque (Primary Dx); Extruded tooth; Partial edentulism, unspecified edentulism class; Excessive attrition of teeth, limited to enamel; Localized gingival recession; Ill-fitting dentures from Last 3 Months Immunizations Name Administration Dates Next Due Hep [...] Sign Reading Time Taken Comments Blood Pressure 134/76 10/25/2024 7:57 AM EDT Pulse 64 12/20/2023 9:32 AM EDT Temperature - - Respiratory Rate - - Oxygen Saturation - - Inhaled Oxygen Concentration - - Weight - - Height - - Body Mass Index - - Plan of Treatment Upcoming Encounters Date Type Department Care Team (Late st Contact Info) Description 05/01/2025 8:00 AM EDT Office Visit [facility] ADULT DENTAL [address] [place] [address] Con, Therese [address] [place] [address] Health Maintenance Due Date Last Done Comments [...] - PCV) 01/14/2023 01/14/2022, 09/09/2005 COVID-19 Vaccine ( - 2023- season) 2024 12/07/2021, 06/10/2021, 10/21/2020, Additional history exists Dental X-Ray: Full Mouth 01/21/2025 01/20/2022 Dental Oral Exam 04/27/2025 10/25/2024, 12/20/2023 Dental Prophylaxis 04/27/2025 10/25/2024, 12/20/2023 Tobacco Screening 10/25/2025 10/25/2024 Dental X-Ray: Bitewings 10/26/2025 10/25/2024, 12/19 DTaP/Tdap/Td Vaccines (3 - Td or Tdap) [...] Procedure Name Priority Date/Time Associated Diagnosis Comments ADJUST PARTIAL DENTURE - MANDIBULAR Routine 10/25/2024 8:00 AM EDT PERIODIC ORAL EVALUATION - ESTABLISHED PATIENT Routine 10/25/2024 8:00 AM EDT CASE PRESENTATION, DETAILED AND EXTENSIVE TREATMENT PLANNING Routine 10/25/2024 8:00 AM EDT Dental plaque Extruded tooth Partial edentulism, unspecified edentulism class Excessive attrition of teeth, limited to enamel 24,25 INTRAORAL - PERIAPICAL EACH ADDITIONAL RADIOGRAPHIC IMAGE Routine 10/25/2024 8:00 AM EDT Dental plaque Extruded tooth Partial edentulism, unspecified edentulism class Excessive attrition of teeth, limited to enamel BITEWINGS - 4 RADIOGRAPHIC IMAGES Routine 10/25/2024 8:00 AM EDT Dental plaque Extruded tooth Partial edentulism, unspecified edentulism class Excessive attrition of teeth, limited to enamel 8,9 INTRAORAL - PERIAPICAL FIRST RADIOGRAPHIC IMAGE Routine 10/25/2024 8:00 AM EDT Dental plaque Extruded tooth Partial edentulism, unspecified edentulism class Excessive attrition of teeth, limited to enamel ORAL HYGIENE INSTRUCTIONS Routine 10/25/2024 8:00 AM EDT Dental plaque Extruded tooth Partial edentulism, unspecified edentulism class Excessive attrition of teeth, limited to enamel Full PROPHYLAXIS - ADULT Routine 025 8:00 AM EDT Dental plaque from Last 3 Months Insurance [facility] [employer] STAND ADULT
--- OUTSIDE RECORDS SUMMARY | 2024-11-22 16:22 | XMS_ITS | Encounter Summary ---
Author Organization [employer] [facility] Address [address] [place] [address] Care Team Providers Care Bridge Ironworker Name Role Phone Unavailable Primary Care Provider Unavailabl e Encounter Details Date Type Department Care Team (Latest Contact Info) Description 10/19/2018 Abstract [facility] CONVERSIONS Dental, Provider, DDS Social [...] Description 05/01/2025 8:00 AM EDT Office Visit [facility] ADULT DENTAL [address] [place] [address] Con Therese [address] [place] [address] documented as of this encounter Visit Diagnoses Not on filedocumented in this encounter
--- OUTSIDE RECORDS SUMMARY | 2024-11-22 16:22 | XMS_ITS | Clinical Summary ---
Author Organization [facility] Address [address] [place] [address] Phone Care Team Providers Care Hand Model Name Role Phone Viviana Guaman MD Primary Care Provider [phone] Allergies No known active allergies Encounters Date Type Department Care Team Description 09/28/2024 10:00 AM EST - 09/28/2024 11:59 PM EST Hospital Encounter [facility] Pulmonary [address] [place] [address] Emphysema lung (CMS/HCC V24, CMS/HCC V28) Discharge Disposition: Home or Self Care from Last 3 Months Social History Tobacco Use Types Packs/Day Years Used Date Smoking Tobacco: Never Assessed Comments Unknown Sex and Gender Information Value Date Recorded Sex Assigned at Female 09/28/2024 10:03 AM EST Legal Sex Female 4:51 AM EST Gender Identity Female 09/28/2024 10:03 AM EST Sexual Orientation Straight 09/28/2024 10 :03 AM EST Plan of Treatment Health Maintenance Due Date Last Done Comments Breast Cancer Screening 1955 RSV Immunization Adult Patients (1 - Risk 60-74 years 1-dose series) 2015 Pneumococcal Vaccine: 50+ Years (2 of 2 - PCV) 01/14/2023 01/14/2022, 09/09/2005 COVID-19 Vaccine ( season) 2024 12/07/2021, 06/10/2021, 10/21/2020, Additional history exists Cholesterol Screening (Lipid Panel) 09/06/2024 Colorectal Cancer Screening: Colonoscopy 09/06/2024 Depression Screening 09/06/2024 Falls Risk Assessment 09/06/2024 Hepatitis C Screening 09/06/2024 Medicare Annual Wellness Visit 09/06/2024 Osteoporosis Screening (Bone Density Screening) 09/06/2024 Social Influencers of Health Screening 09/06/2024 DTaP,Tdap,and Td Vaccines (4 - Td or Tdap) 12/30/2025 12/31/2015, 04/21/2010, [...] age to complete this topic Meningococcal B Vaccine Aged Out No l onger eligible based on patient's age to complete this topic RSV Immunization Patients Under 20 months Aged Out No longer eligible based on patient's age to complete this topic Varicella Vaccines Aged Out No longer eligible based on patient's age to complete this topic Procedures Procedure Name Priority Date/Time Associated Diagnosis Comments HC SPIROMETRY BRONCHODILATION RESPONSIVENESS PRE/POST BRONCHODILATOR ADMINISTRATION Routine 09/28/2024 10:38 AM EST Emphysema lung ([facility] V24, [facility] V28) from Last 3 Months Results * Pulmonary function testing: Carbon Monoxide Diffusing Capacity, Nitrogen Wash Out, Spirometry with Bronchodilator (09/28/2024 10:38 AM EST) Shameka Moon MD - 09/28/2024 7:42 PM EST FEV1/FVC 52%. FEV1 0.70 at 50%. FVC 66%. Good bronchodilator response in the major and peripheral airways. TLC 88%. RV 121%. DLCO 74%. Moderately severe obstruction with good bronchodilator sponsor and air trapping. ??No restriction. ??Mild decrease in diffusion. Finding consistent moderate severe obstructive lung disease with good reversibility. us Jeannette Jenkins MD PFT ORDERABLES Final Result from Last 3 Months Insurance [employer] MEDICARE Member Subscriber Plan / Payer (Ef fective 2023-Present) Name:Gabbie Alejandre Relation to Subscriber:Self Name:Gabbie Alejandre Payer ID:[id number] Group ID:[id number] Type:Not on file Address: [place] [address] [address] [id number] Care Teams Hand Model Relationship Specialty Start Date End Date Viviana Guaman MD [address] [place] [address] , [address] [facility] D[facility]A: [facility] [place], [place] PCP - General Internal Medicine 09/28/24
== END 2024-11-22 14:50 | disposition home or self-care (01) ==
LOC: HO.HMCH 14:11
PROVIDERS: PCP Internal Medicine; Visit Provider Internal Medicine
DX: Z00.00 Encounter for general adult medical examination without abnormal findings (principal); J43.1 Panlobular emphysema; A31.0 Pulmonary mycobacterial infection

== ENCOUNTER → 2024-11-22 14:10 | Outpatient (BNVA) | payer OTHER, SELFPAY | PROVIDERS: PCP Internal Medicine; Visit Provider Internal Medicine | DX: Z00.00 Encounter for general adult medical examination without abnormal findings (principal); J43.1 Panlobular emphysema; A31.0 Pulmonary mycobacterial infection; E55.9 Vitamin D deficiency, unspecified; Z78.0 Asymptomatic menopausal state; E78.5 Hyperlipidemia, unspecified | CPT/HCPCS: 99397 ==

== ENCOUNTER 2024-11-26 06:47 | Outpatient (REF) | payer OTHER, SELFPAY ==
--- OUTSIDE RECORDS SUMMARY | 2024-11-26 06:52 | XMS_ITS | Clinical Summary ---
Author Organization [facility] Address [address] [place] [address] Phone Care Team Providers Care Rack Carrier Name Role Phone Viviana Guaman MD Primary Care Provider [phone] Allergies No known active allergies Encounters Date Type Department Care Team Description 09/28/2024 10:00 AM EST - 09/28/2024 11:59 PM EST Hospital Encounter [facility] Pulmonary [address] [place] [address] Emphysema lung (CMS/HCC V24, CMS/HCC [...] Routine 09/28/2024 10:38 AM EST Emphysema lung ([facility] V24, [facility] V28) from Last 3 Months Results * [...] ID:[id number] Group ID:[id number] Type:Not on file Address: [place] [address] [address] [place] [phone] Care Teams Rack Carrier Relationship Specialty Start Date End Date Viviana Guaman MD [address] [place] [address] , [address] [facility] D/B/A: [facility] [place], [place] PCP - General Internal Medicine 09/28/24
--- OUTSIDE RECORDS SUMMARY | 2024-11-26 06:52 | XMS_ITS | Clinical Summary ---
Author Organization [employer] Address [address] [place] [address] Care Team Providers Care Visual Merchandising Manager Name Role Phone Unavailable Primary Care Provider [...] mouth at bed time. 4 Active Creon 2777-7255 units capsule TOME 1 C PSULA POR [...] Description 10/25/2024 8:00 AM EDT Office Visit [facility] [address] [place] [address] Therese Andujar Dental plaque (Primary Dx); Extruded [...] 05/01/2025 8:00 AM EDT Office Visit [facility] [address] [place] [address] Con, Therese [address] [place] [address] Health Maintenance Due Date Last Done Comments [...]
--- OUTSIDE RECORDS SUMMARY | 2024-11-26 06:52 | XMS_ITS | Encounter Summary ---
Author Organization [employer] [facility] Address [address] [place] [address] Care Team Providers Care Associate Art Director Name Role Phone Unavailable Primary Care Provider Unavailabl e Encounter Details Date Type Department Care Team (Latest Contact Info) Description 10/19/2018 Abstract [facility] CONVERSIONS Dental, Provider, DDS Social History Tobacco [...] Description 05/01/2025 8:00 AM EDT Office Visit [facility] ADULT DENTAL [address] [place] [address] Con Therese [address] [place] [address] documented as of this encounter Visit Diagnoses Not on filedocumented in this encounter
--- OUTSIDE RECORDS SUMMARY | 2024-11-26 06:52 | XMS_ITS | Encounter Summary ---
Author Organization [employer] [facility] Address [address] [place] [address] Care Team Providers Care Manager Field Name Role Phone Unavailable Primary Care Provider Unavailabl e Encounter Details Date Type Department Care Team (Latest Contact Info) Description 06/02/2021 Abstract [facility] CONVERSIONS Dental, Provider, DDS Social History [...] Description 05/01/2025 8:00 AM EDT Office Visit [facility] ADULT DENTAL [address] [place] [address] Mario Andujararis [address] [place] [address] documented as of this encounter Visit Diagnoses Not on filedocumented in this encounter
[2024-11-26 07:58] LABS: Alanine Aminotransferase 17 U/L (0-31); Albumin Level 4.2 g/dL (3.5-5.0); Alkaline Phosphatase 122 U/L (39-117); Anion Gap 12 (12-20); Aspartate Amino Transferase 24 U/L (5-31); Bilirubin Total 0.4 mg/dL (0.0-1.0); Blood Urea Nitrogen 21 mg/dL (9-16); Calcium 9.6 mg/dL (8.4-10.2); Carbon Dioxide 27 mmol/L (22-29); Chloride 106 mmol/L (96-108); Cholesterol 177 mg/dL (<200); Estimated Glomerular Filt Rate > 60; Glucose Fasting 101 mg/dL (60-99); HDL Cholesterol 50 mg/dL (>40); LDL Cholesterol Calculated 86 mg/dL (<100); Potassium 4.1 mmol/L (3.3-5.1); Sodium 141 mmol/L (135-145); Total Protein 7.6 g/dL (6.5-8.0); Triglycerides 209 mg/dL (<150)
[2024-11-26 08:17] LABS: Vitamin D 25-OH Total 36.8 ng/mL (>30)
[2024-11-29 13:02] LABS: TS Negative Control Passed; TS Panel A 1; TS Panel B 0; TS Positive Control Passed; TSpotTB Negative (Negative)
== END 2024-11-26 06:48 | disposition home or self-care (01) ==
LOC: HO.LAB 06:47
PROVIDERS: PCP Internal Medicine; Visit Provider Internal Medicine
DX: K22.0 Achalasia of cardia (principal); Z11.1 Encounter for screening for respiratory tuberculosis; E78.5 Hyperlipidemia, unspecified; E55.9 Vitamin D deficiency, unspecified
CPT/HCPCS: 36415; 80053; 80061; 82306; 86481

== ENCOUNTER 2024-11-29 07:31 | Day surgery (SDC) | payer OTHER, SELFPAY ==
--- OUTSIDE RECORDS SUMMARY | 2024-11-27 09:03 | XMS_ITS | Encounter Summary ---
Author Organization [employer] Address [address] [place] [address] Care Team Providers Care Computational Theory Scientist Name Role Phone Unavailable Primary Care Provider Unavailabl e Encounter Details Date Type Department Care Team (Latest Contact Info) Description 06/02/2021 Abstract [facility] CONVERSIONS Dental, Provider, DDS Social [...] Description 05/01/2025 8:00 AM EDT Office Visit [facility] ADULT DENTAL [address] [place] [address] Mario Andujararis [address] [place] [address] documented as of this encounter Visit Diagnoses Not on filedocumented in this encounter
--- OUTSIDE RECORDS SUMMARY | 2024-11-27 09:03 | XMS_ITS | Encounter Summary ---
Author Organization [employer] Address [address] [place] [address] Care Team Providers Care Cnc Mill Programmer Name Role Phone Unavailable Primary Care Provider Unavailabl e Encounter Details Date Type Department Care Team (Latest Contact Info) Description 10/19/2018 Abstract [facility] CONVERSIONS Dental, Provider, DDS Social History [...] Description 05/01/2025 8:00 AM EDT Office Visit [facility] ADULT DENTAL [address] [place] [address] Mario Andujararis [address] [place] [address] documented as of this encounter Visit Diagnoses Not on filedocumented in this encounter
--- OUTSIDE RECORDS SUMMARY | 2024-11-27 09:03 | XMS_ITS | Clinical Summary ---
Author Organization [employer] Address [address] [facility] [address] [place] [address] Care Team Providers Care Stereotyper Name Role Phone Unavailable Primary Care Provider [...] mouth at bed time. 4 Active Creon 2996-0175 units capsule TOME 1 C PSULA POR [...] Description 10/25/2024 8:00 AM EDT Office Visit [facility] ADULT DENTAL [address] [place] [address] Therese Andujar Dental plaque (Primary Dx); Extruded [...] 8:00 AM EDT Office Visit [facility] ADULT DENTAL [address] [place] [address] Con, Therese [address] [place] [address] Health Maintenance Due Date Last Done Comments [...] 01/14/2023 01/14/2022, 09/09/2005 COVID-19 Vaccine ( - season) 2024 12/07/2021, 06/10/2021, 10/21/2020, Additional history [...]
--- OUTSIDE RECORDS SUMMARY | 2024-11-27 09:03 | XMS_ITS | Clinical Summary ---
Author Organization [facility] Address [address] [place] [address] Phone Care Team Providers Care Systems Navigator Name Role Phone Viviana Guaman MD Primary Care Provider [phone] Allergies No known active allergies Encounters Date Type Department Care Team Description 09/28/2024 10:00 AM EST - 09/28/2024 11:59 PM EST Hospital Encounter [facility] Pulmonary [address] [place] [address] Emphysema lung (CMS/HCC V24, CMS/HCC [...] Routine 09/28/2024 10:38 AM EST Emphysema lung ([facility] V24, [facility] V28) from Last 3 Months Results [...] ID:[id number] Group ID:[id number] Type:Not on file Address: [place] [address] [address] [address] Care Teams Systems Navigator Relationship Specialty Start Date End Date Viviana Guaman MD [address] [place] [address] , [address] [facility] D[facility]A: [facility] [place], [place] PCP - General Internal Medicine 09/28/24
[2024-11-27 10:40] VITALS: BMI 32.7
--- NOTE | 2024-11-28 08:36 | HO.ANESPROP2 ---
Documented by User: Tania Pisano NP 11/28/24 08:38 HPI - Anesthesia Eval Consult details Narrative: 69yo F for Upper Endoscopy PMFSH Active Problems Active Problems: All Active Problems Cricopharyngeal achalasia (Acute) Gastritis (Acute) Achalasia (Acute) Hospital discharge follow-up (Acute) Osteoarthritis of right knee (Acute) Osteoarthritis of left knee (Acute) Allergic rhinitis (Acute) Left ankle pain (Acute) Left knee pain (Acute) Hypovitaminosis D (Acute) Physical exam (Acute) Postmenopausal (Acute) Glaucoma (Acute) Fungal rash of torso (Acute) Encounter for annual routine gynecological examination (Acute) Bug bite (Acute) Severe asthma (Acute) Emphysema lung (Acute) Vaginal pruritus (Acute) Skin lesion (Acute) GERD (gastroesophageal reflux disease) (Acute) Oral thrush (Acute) KEI (mycobacterium avium-intracellulare) (Acute) Pernicious anemia (Acute) Pure hypercholesterolemia (Acute) Past Medical History Medical History Glaucoma Asthma Emphysema lung GERD (gastroesophageal reflux disease) Oral thrush KEI (mycobacterium avium-intracellulare) Pernicious anemia Pure hypercholesterolemia Family History Family History Father Diabetes Hypertension Stroke Mother Diabetes Hypertension Breast cancer, Onset Age: 69 Status post mastectomy Son No problems noted. Family/Other FH: mental illness Surgical History Surgical History Hx of colonoscopy History of esophagogastroduodenoscopy (EGD) Hx of tubal ligation History of section History of cholecystectomy History of tonsillectomy Social History Social History Household Members: None Household Members Other:: Housing: Apartment Are you a primary medicare sales representative to a significant other at home: No Do you presently have visiting nurse or other home services: No Alcohol intake: never Patient Tobacco Use Status: Never used Tobacco e-Cigarette/Vaping Use: Never Used Second Hand Smoke Exposure: No Use of substances other than those prescribed or required for medical reasons: No Are you DNR?: No Advance Directives: No Advance Directives Information Provided: Yes Patient : No service: No Current occupational status: retired Cognitive needs: No Hearing needs: No Vision needs: No Meds Allergies Allergy/AdvReac Type Severity Reaction Status Date / Time lobster Allergy Mild Vomiting Verified 11/29/24 07:59 Home Medications ?Medication ?Instructions ?Recorded ?Confirmed ?Last Taken ?Type albuterol sulfate 2.5 mg/3 mL 2.5 mg inhalation TID 07/22/20 11/29/24 Unknown History (0.083 %) solution for nebulization montelukast 10 mg tablet 10 mg PO DAILY 07/22/20 11/29/24 Unknown History dorzolamide 2 % eye drops 1 drp ophthalmic (eye) BID 01/14/22 11/29/24 Unknown History fluticasone fur. 200 mcg-umeclid 1 ea inhalation DAILY 01/14/22 11/29/24 Unknown History 62.5 mcg-vilant 25 mcg inhalat.powder (Trelegy Ellipta) latanoprost 0.005 % eye drops 1 drp ophthalmic (eye) BEDTIME 01/14/22 11/29/24 Unknown History albuterol sulfate 90 mcg/actuation 2 puff inhalation Q4H PRN 09/19/24 11/29/24 Unknown History aerosol inhaler Shortness Of Breath Or Wheezing Exam Height,Weight and Vital Signs: Height 4 ft 9 in Weight 68.492 kg Assessment and Plan Assessment Anesthesia Assessment: Chart Reviewed Documented by User: Avelina Wells MD 11/29/24 10:23 [facility] Active Problems Active Problems: All Active Problems Cricopharyngeal achalasia (Acute) Gastritis (Acute) Achalasia (Acute) Hospital discharge follow-up (Acute) Osteoarthritis of right knee (Acute) Osteoarthritis of left knee (Acute) Allergic rhinitis (Acute) Left ankle pain (Acute) Left knee pain (Acute) Hypovitaminosis D (Acute) Physical exam (Acute) Postmenopausal (Acute) Glaucoma (Acute) Fungal rash of torso (Acute) Encounter for annual routine gynecological examination (Acute) Bug bite (Acute) Severe asthma (Acute)- uses inhalers once a day every day Emphysema lung (Acute) Vaginal pruritus (Acute) Skin lesion (Acute) GERD (gastroesophageal reflux disease) (Acute) Oral thrush (Acute) KEI (mycobacterium avium-intracellulare) (Acute) Pernicious anemia (Acute) Pure hypercholesterolemia (Acute) Past Medical History Medical History Glaucoma Asthma Emphysema lung GERD (gastroesophageal reflux disease) Oral thrush KEI (mycobacterium avium-intracellulare) Pernicious anemia Pure hypercholesterolemia Family History Family History Father Diabetes Hypertension Stroke Mother Diabetes Hypertension Breast cancer, Onset Age: 69 Status post mastectomy Son No problems noted. Family/Other FH: mental illness Family history of problems with anesthesia: No Surgical History Surgical History Hx of colonoscopy History of esophagogastroduodenoscopy (EGD) Hx of tubal ligation History of section History of cholecystectomy History of tonsillectomy History of Problems with Anesthesia: No Social History Social History Household Members: None Household Members Other:: Housing: Apartment Are you a primary medicare sales representative to a significant other at home: No Do you presently have visiting nurse or other home services: No Alcohol intake: never Patient Tobacco Use Status: Never used Tobacco e-Cigarette/Vaping Use: Never Used Second Hand Smoke Exposure: No Use of substances other than those prescribed or required for medical reasons: No Are you DNR?: No Advance Directives: No Advance Directives Information Provided: Yes Patient : No service: No Current occupational status: retired Cognitive needs: No Hearing needs: No Vision needs: No Meds Allergies Allergy/AdvReac Type Severity Reaction Status Date / Time lobster Allergy Mild Vomiting Verified 11/29/24 07:59 Home Medications ?Medication ?Instructions ?Recorded ?Confirmed ?Last Taken ?Type albuterol sulfate 2.5 mg/3 mL 2.5 mg inhalation TID 07/22/20 11/29/24 Unknown History (0.083 %) solution for nebulization montelukast 10 mg tablet 10 mg PO DAILY 07/22/20 11/29/24 Unknown History dorzolamide 2 % eye drops 1 drp ophthalmic (eye) BID 01/14/22 11/29/24 Unknown History fluticasone fur. 200 mcg-umeclid 1 ea inhalation DAILY 01/14/22 11/29/24 Unknown History 62.5 mcg-vilant 25 mcg inhalat.powder (Trelegy Ellipta) latanoprost 0.005 % eye drops 1 drp ophthalmic (eye) BEDTIME 01/14/22 11/29/24 Unknown History albuterol sulfate 90 mcg/actuation 2 puff inhalation Q4H PRN 09/19/24 11/29/24 Unknown History aerosol inhaler Shortness Of Breath Or Wheezing Exam Height,Weight and Vital Signs: Height 4 ft 9 in Weight 68.492 kg Vital Signs Temp Pulse Resp BP Pulse Ox O2 Del Method 11/29/24 08:01 97.8 F 59 14 150/63 H 98 Room Air Airway Mallampati Class: III (Small mouth) TM Dist: >3cm Neck ROM: Limited Loose/Missing/Broken Teeth: Yes (Missing teeth back. Denies broken or loose teeth) Heart: RRR Lungs: CTAB Assessment and Plan Assessment Anesthesia Assessment: Anesthesia Plan Discussed and Chart Reviewed Final Anesthetic Review Family History of Problems with Anesthesia: No History of Problems with Anesthesia: No NPO: Yes ASA Class: III Final Preanesthetic Review: No Changes in Pt Med Stat, Meds/Allgs Chart Reviewed, Consent Obtained/Reviewed and Anes Risks/Benef Reviewed Patient Risk: Intermediate Procedure Risk: Low Assessment/Block/Sedation in SS: Assess/Block/Sedation-SS Anesthetic Plan Anesthetic Plan: TIVA Disposition: Standard PACU
[2024-11-29 08:01] VITALS: BP 150/63; PULSE 59; RESP 14; TEMP 36.6; O2SAT 98; BMI 32.0
[2024-11-29] MEDS: Lactated Ringers 1,000 ML 100 ML IVCONT (08:11)
--- NOTE | 2024-11-29 10:09 | MHC.SHP ---
Pre-Procedural Eval Section A - 24 Hr Update-Section A only Date of Service: 11/29/24 Section B - Complete if H&P > 30 days Chief Complaint: Dysphagia, unspecified Details of Present Illness: Emphysema lung Vaginal pruritus Skin lesion GERD (gastroesophageal reflux disease) Oral thrush Severe asthma KEI (mycobacterium avium-intracellulare) Pernicious anemia Pure hypercholesterolemia Surgical History Hx of colonoscopy History of esophagogastroduodenoscopy (EGD) Hx of tubal ligation History of section History of cholecystectomy History of tonsillectomy Present Medications: see Short Stay Collaborative assessment Allergies: Allergies Allergy/AdvReac Type Severity Reaction Status Date / Time lobster Allergy Mild Vomiting Verified 11/29/24 07:59 Review of Systems Review of Systems Comment: 10 point ROS negative Exam Exam Comment: Gen appear: No acute distress HEENT: no icterus Chest: No overt resp distress Abd: soft, nontender, nondistended Psych: Stable affect, answering questions appropriately Neuro: A/Ox3 noted to move all extremities spontaneously Ext: no peripheral edema Plan Diagnosis/Plan: Unchanged I have reviewed the history and physical and performed a pertinent physical examination on my patient. No changes have occurred unless specified. Time Spent With Patient Time: Total time managing care of this patient today ____ minutes.
--- NOTE | 2024-11-29 10:33 | P.OP_ITS ---
Operative Note Operative Note Date of Service: 11/29/24 Narrative: Procedure: Esophagogastroduodenoscopy Endoscopist: Emmanuelle Thrasher MD Indication: Dysphagia Anesthesia Provider: Dr Avelina Wells Anesthesia Type: MAC ?? EGD Procedure:?? The procedure, indications, preparation and potential complications were reviewed with the patient, who indicated understanding and gave written informed consent to proceed. A physical exam was performed. The endoscope was introduced through the mouth, and advanced to the second part of duodenum. The mucosa was carefully examined on slow withdrawal of the endoscope. The patient tolerated the procedure well. There were no immediate complications.? ? EGD Findings:? * Esophagus:? Normal mucosa noted in the entire esophagus. The Z line was at 35 cm and irregular < 1 cm. * Stomach:? Erosions and erythema noted in antrum with atrophic appearance of body and fundus. Retroflexion was performed in the cardia. Cold forceps gastric biopsies were performed in the antrum and body of the stomach to r/o atrophic gastritis. * Duodenum:? Erythema and edema of the duodenal bulb was noted. The mucosa was normal to the extent examined. Cold forceps biopsies were taken for histology. Additional intervention: Soft tip Savary wire was introduced through the biopsy channel of the gastroscope and advanced to the antrum. ?The gastroscope was then backed out. ?Savary Cookie bougie was advanced over the guidewire and the esophagus was dilated from 14 to 16 mm with resistance felt. ?On relook, superficial tear was noted at 17 cm confirming successful dilation. ? ? EGD Impressions:? * Cricopharyngeal stenosis (dilation) * Gastritis (biopsy) * Duodenitis (biopsy) ?? Recommendations:?? * Follow biopsy results. Our office will call or send a letter with results within 7-10 days. * If H pylori +, patient will be prescribed eradication therapy followed by test of cure. * Avoid NSAIDs. * Repeat upper endoscopy will be set up in a few months for up dilation to 18-20 mm. Above has been reviewed with the patient.
[2024-11-29 10:39] VITALS: BP 134/64; PULSE 74; RESP 18; TEMP 36.3; O2SAT 97
[2024-11-29 10:50] VITALS: BP 135/66; PULSE 68; RESP 18; TEMP 36.6; O2SAT 98
[2024-11-29] MEDS: Mag&Al/Sim/Diphenhyd/Lidocaine 10 ML ORAL.SUSP PO (11:01)
== END 2024-11-29 11:20 | disposition home or self-care (01) ==
PROVIDERS: PCP Internal Medicine; Visit Provider Internal Medicine
PROC: 0DJ08ZZ Inspection of Upper Intestinal Tract, Via Natural or Artificial Opening Endoscopic (ICD-10-PCS; CPT 43235; principal; 2024-11-29 10:10)
DX: K29.60 Other gastritis without bleeding (principal); K29.80 Duodenitis without bleeding; K44.9 Diaphragmatic hernia without obstruction or gangrene; K22.9 Disease of esophagus, unspecified; K22.0 Achalasia of cardia; K21.9 Gastro-esophageal reflux disease without esophagitis; E78.00 Pure hypercholesterolemia, unspecified; J44.9 Chronic obstructive pulmonary disease, unspecified; Z79.02 Long term (current) use of antithrombotics/antiplatelets; Z79.899 Other long term (current) drug therapy
CPT/HCPCS: 43248; 43239; 88305; 88313; 88341; 88342; C1769; J1596; J2003; J2704

== ENCOUNTER → 2024-11-29 07:31 | Outpatient (BNV) | payer OTHER, SELFPAY | PROVIDERS: PCP Internal Medicine; Visit Provider Internal Medicine | DX: R13.10 Dysphagia, unspecified (principal); K29.70 Gastritis, unspecified, without bleeding; K29.80 Duodenitis without bleeding | CPT/HCPCS: 43239; 43248 ==

== ENCOUNTER 2024-12-21 09:39 | Outpatient (REF) | payer OTHER, SELFPAY ==
--- NOTE | ~2024-12-21 | MM_ITS ---
EXAMINATION: DXA BONE DENSITY AXIAL HISTORY: Z78.0 - Asymptomatic menopausal state TECHNIQUE: [employer] Dual energy absorptiometry (DEXA) of the lumbar spine, total left hip, and femoral neck was performed. COMPARISON: Comparison is made with the prior examination dated 05/07/2022. FINDINGS: The bone mineral density of the lumbar spine is 1.275, corresponding to a T-score of 0.8, and a Z-score of 2.4. This is indicative of normal bone mineral density. This represents a BMD change of -3.2% compared to the prior exam. This is statistically significant. The bone mineral density of the left total hip is 0.951, corresponding to a T-score of -0.4, and a Z-score of 0.9. This is indicative of normal bone mineral density. This represents a BMD change of -4.5% compared to the prior exam. This is statistically significant. The bone mineral density of the left femoral neck is 0.912, corresponding to a T-score of -0.9, and a Z-score of 0.7. This is indicative of normal bone mineral density. This represents a BMD change of -2.4% compared to the prior exam. FRACTURE RISK: The FRAX index suggests a ten year probability of major osteoporotic fracture of 4.5%, and of hip fracture 0.4%. MM/XR DEXA axial skeleton IMPRESSION: Based on bone mineral density, and according to World Health Organization (WHO) criteria, the diagnosis is consistent with normal bone mineral density. All bone density values are in grams per centimeter squared (g/cm2). Statistically, 68% of repeat scans fall within 1 SD (+/- 0.010 g/cm2 for AP spine L1-L4) and 1 SD (+/- 0.012 g/cm2 for femur total) FRAX is a trademark of the [employer]'s [place] for Metabolic Bone Disease, a World Health Organization (WHO) Collaborating Center. Electronically signed by: Ky Altamirano MD 12/21/2024 10:42 AM EDT
--- OUTSIDE RECORDS SUMMARY | 2024-12-21 10:02 | XMS_ITS | Clinical Summary ---
Author Organization [employer] Address [address] [facility] [address] [place] [address] Care Team Providers Care Hand Box Folder Name Role Phone Unavailable Primary Care [...] mouth at bed time. 4 Active Creon 0594-3041 units capsule TOME 1 C PSULA POR [...] Description 10/25/2024 8:00 AM EDT Office Visit [facility] ADULT DENTAL [address] [place] [address] Therese Andujar Dental plaque (Primary Dx); Extruded tooth; Partial edentulism, unspecified edentulism class; Excessive attrition of teeth, limited to enamel; Localized gingival recession; Ill-fitting dentures from Last 3 Months Immunizations Immunization Administration Dates Next Due Hep A, Adult [...] Description 05/01/2025 8:00 AM EDT Office Visit [facility] ADULT DENTAL [address] [place] [address] Con, Therese [address] [place] [address] Health Maintenance Due Date Last Done Comments [...]
== END 2024-12-21 09:40 | disposition home or self-care (01) ==
LOC: HO.MAMMO 09:39
PROVIDERS: PCP Internal Medicine; Visit Provider Internal Medicine
DX: Z78.0 Asymptomatic menopausal state (principal)
CPT/HCPCS: 77080

== ENCOUNTER → 2024-12-21 10:00 | Outpatient (BNV) | payer OTHER, SELFPAY | PROVIDERS: PCP Internal Medicine; Visit Provider Radiology Diagnostic Radiology | DX: E28.39 Other primary ovarian failure (principal) | CPT/HCPCS: 77080 ==

== ENCOUNTER 2025-01-02 11:07 | Outpatient (AMB) | payer OTHER, SELFPAY ==
--- NOTE | 2025-01-02 11:26 | A.OFFVIS_ITS ---
Vital Signs 01/02/25 11:28 Height 4 ft 9 in Weight 145 lb 8.081 oz BMI 31.5 BP 120/60 Blood Pressure Location Lt brachial Position Sitting Pulse 65 Intake Visit Reasons: S/p egd Intake Note: States she is here today for the results of her EGD. CC: No concerns at this time! Territory Sales Representative Required: No Allergies lobster Allergy (Mild, Verified 01/02/25 11:28) Vomiting HPI Comments Details: 69 y/o F with PMH of COPD, pernicious anemia, who is here for abnormal UGIS. Main CC is heartburn and globus sensation. Started many months ago. Was previously attributed to COPD flares. Sometimes also has sensation of food getting stuck radha hard dry foods like crackers. Chases it with liquid or regurgitates it. Cuts up food small. Does not have molars but uses dentures. [place] 2019 - good prep. No polyps. UGIS 06/2024: 1. Mild cricopharyngeal achalasia. 2. Moderately disorganized esophageal peristalsis. 3. Small type I hiatal hernia with moderate to significant gastroesophageal reflux. 4. Limited evaluation of the gastric mucosa due to suboptimal coating of the barium. No obvious masses or ulcerations are seen. The areae gastrica have a prominent appearance, suggestive of gastritis. Started on pantoprazole 40 by PCP but doesnt think its helping. Takes it in AM on empty stomach. 11/29/24: * Cricopharyngeal stenosis (dilation) * Gastritis (biopsy) * Duodenitis (biopsy)?? AB/PAS stain on A shows no evidence of chronic injury. Gastrin immunostain on C is negative, confirming gastric body mucosa. 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 Controls stain appropriately. Electronically Signed By: Tonia Elizabeth 12/06/24 [id number] Diagnosis A. Duodenum, biopsy: Duodenal mucosa with preserved villi and no specific change. B. Gastric antrum, biopsy: Gastric antral mucosa with reactive changes and minimal chronic inactive gastritis; no significant atrophy; negative for H.pylori, intestinal metaplasia and dysplasia. C. Gastric body, biopsy: Atrophic gastritis with antral-type mucosa and focal intestinal metaplasia (complete); negative for H. pylori and dysplasia (see comment). Comment: (A): Additional levels with AB/PAS stain pending; addendum to follow. (C): Gastrin stain pending; addendum to follow 01/02/25: Here for follow up. Reports partial response to dilation. Was advised the dilation was only ductal 16 mm, and will be scheduled for repeat endoscopy in a few months. In addition, who histology reviewed, shows atrophic gastritis in the body with complete intestinal metaplasia. We will also perform mapping biopsies at that endoscopy. [facility] Medical History (Updated 02/21/25 @ 11:25 by Emmanuelle Thrasher MD) Glaucoma Asthma Emphysema lung GERD (gastroesophageal reflux disease) KEI (mycobacterium avium-intracellulare) Pernicious anemia Pure hypercholesterolemia Surgical History (Updated 02/19/25 @ 10:57 by Gem Leslie RN) Hx of colonoscopy History of esophagogastroduodenoscopy (EGD) Hx of tubal ligation History of section History of cholecystectomy History of tonsillectomy Family History Father Diabetes Hypertension Stroke Mother Diabetes Hypertension Breast cancer, Onset Age: 69 Status post mastectomy Son No problems noted. Family/Other FH: mental illness Social History Household Members: None Household Members Other:: Housing: Apartment Are you a primary care analyst to a significant other at home: No Do you presently have visiting nurse or other home services: No Alcohol intake: never Patient Tobacco Use Status: Never used Tobacco e-Cigarette/Vaping Use: Never Used Second Hand Smoke Exposure: No service: No Current occupational status: retired Cognitive needs: No Hearing needs: No Vision needs: No Female Reproductive History Menstrual Age of Menarche: 12 Review of Systems Const All systems reviewed & are unremarkable except as noted in HPI and below Physical Exam Vital Signs: Last Vital Signs Pulse 65 01/02/25 11:28 BP 120/60 01/02/25 11:28 BMI result Body Mass Index 31.5 No apparent distress Nonicteric Abdomen soft, nondistended Alert and oriented x3, normal gait Assessment & Plan Assessment & Plan (1) Cricopharyngeal achalasia: Code(s): K22.0 - Achalasia of cardia Category: Medical (2) Gastritis: Code(s): K29.70 - Gastritis, unspecified, without bleeding Category: Medical (3) Atrophic gastritis: Code(s): K29.40 - Chronic atrophic gastritis without bleeding Category: Medical Plan Cricopharyngeal dil performed to 16 mm. Patient will be scheduled for repeat EGD for up dilation. In addition, atrophic gastritis noted in the gastric body. Dedicated gastric mapping biopsies will be performed in the next upper endoscopy. In the meantime, we will run autoimmune serologies, and also check iron, vitamin B12 and folate. Plan: -EGD to be scheduled -fasting gastrin level ordered. Patient aware to be off PPI for this. -autoimmune gastritis serology ordered -iron, B12, folate ordered Follow-up after endoscopy Orders: Orders Vitamin B12 and Folate 01/02/25 K22.0 - Achalasia of cardia Parietal Cell Antibody 01/02/25 K22.0 - Achalasia of cardia Gastrin 01/02/25 K22.0 - Achalasia of cardia IRON PROFILE 01/02/25 K22.0 - Achalasia of cardia Ferritin 01/02/25 K22.0 - Achalasia of cardia Intrinsic Factor Antibodies 01/02/25 K22.0 - Achalasia of cardia Coding Level of Care Code Est Pt Level 5 (81555) Diagnoses Cricopharyngeal achalasia K22.0 Gastritis K29.70 Atrophic gastritis K29.40
[2025-01-02 11:28] VITALS: BP 120/60; PULSE 65; BMI 31.5
--- OUTSIDE RECORDS SUMMARY | 2025-01-02 12:46 | XMS_ITS | Clinical Summary ---
Author Organization [employer] Address [address] [facility] 7t [place] [address] Care Team Providers Care Skid Road Worker Name Role Phone Unavailable Primary Care Provider [...] mouth at bed time. 4 Active Creon 5826-5503 units capsule TOME 1 C PSULA POR [...] Description 10/25/2024 8:00 AM EDT Office Visit [facility] [address] [place] [address] Therese Andujar Dental plaque (Primary Dx); Extruded [...] Description 05/01/2025 8:00 AM EDT Office Visit [facility] [address] [place] [address] Con, Therese [address] [place] [address] Health Maintenance Due Date Last Done Comments [...]
== END 2025-01-02 12:57 | disposition home or self-care (01) ==
LOC: HO.HGI 11:08
PROVIDERS: PCP Internal Medicine; Visit Provider Internal Medicine
DX: K22.0 Achalasia of cardia (principal); K29.70 Gastritis, unspecified, without bleeding; K29.40 Chronic atrophic gastritis without bleeding
CPT/HCPCS: 99214

== ENCOUNTER → 2025-01-02 11:07 | Outpatient (BNVA) | payer OTHER, SELFPAY | PROVIDERS: PCP Internal Medicine; Visit Provider Internal Medicine | DX: K22.0 Achalasia of cardia (principal) | CPT/HCPCS: 99212 ==

== ENCOUNTER 2025-01-16 06:43 | Outpatient (REF) | payer OTHER, SELFPAY ==
--- OUTSIDE RECORDS SUMMARY | 2025-01-16 06:46 | XMS_ITS | Clinical Summary ---
Author Organization [employer] Address [address] [facility] 7t [place] [address] Care Team Providers Care Ice Hockey Coach Name Role Phone Unavailable Primary Care Provider [...] mouth at bed time. 4 Active Creon 1341-9586 units capsule TOME 1 C PSULA POR [...] 8:00 AM EDT Office Visit [facility] [address] [place] [address] Therese Andujar Dental plaque (Primary Dx); Extruded [...] Description 05/01/2025 8:00 AM EDT Office Visit [facility] [address] [place] [address] Con, Therese [address] [place] [address] Health Maintenance Due Date Last Done Comments [...]
[2025-01-16 07:49] LABS: Iron 62 mcg/dL (30-160); Percent Iron Saturation 17 % (15-50); Total Iron Binding Capacity 362 mcg/dL (228-428); Unsaturated Iron Binding 300 ug/dL
[2025-01-16 08:03] LABS: Ferritin 14 ng/mL (10-250)
[2025-01-16 08:18] LABS: Folate 12.1 ng/mL (> or = 4.0); Vitamin B12 700 pg/mL (200-900)
[2025-01-19 20:59] LABS: Intrinsic Factor Antibodies Negative (Negative)
[2025-01-19 21:30] LABS: Gastrin 822 pg/mL (<=100)
[2025-01-21 11:24] LABS: Parietal Cell Antibody 111.3 Unit (<=20.0)
== END 2025-01-16 06:44 | disposition home or self-care (01) ==
LOC: HO.LAB 06:43
PROVIDERS: PCP Internal Medicine; Visit Provider Internal Medicine
DX: K22.0 Achalasia of cardia (principal)
CPT/HCPCS: 36415; 82607; 82728; 82746; 82941; 83516; 83540; 86340

== ENCOUNTER 2025-02-21 08:32 | Day surgery (SDC) | payer OTHER, SELFPAY ==
--- OUTSIDE RECORDS SUMMARY | 2025-02-07 15:02 | XMS_ITS | Clinical Summary ---
Author Organization [employer] Address [address] [facility] 7t [place] [address] Care Team Providers Care Stamper Blocker Name Role Phone Unavailable Primary Care Provider [...] mouth at bed time. 4 Active Creon 0219-4468 units capsule TOME 1 C PSULA POR [...] Osteoarthritis of knee 05/19/2012 Asthma 12/17/2011 Immunizations Immunization Administration Dates Next Due Hep [...] Description 05/01/2025 8:00 AM EDT Office Visit [facility] [address] [place] [address] Con, Therese [address] [place] [address] Health Maintenance Due Date Last Done Comments [...] exists Dental X-Ray: Full Mouth 01/21/2025 01/20/2022 Influenza Vaccine (#1) 2025 , 04/15/2023, 05/06/2022, Additional history exists Dental Oral Exam 04/27/2025 10/25/2024, 12/20/2023 Dental Prophylaxis 04/27/2025 10/25/2024, 12/20/2023 Tobacco Screening 10/25/2025 10/25/2024 Dental X-Ray: Bitewings 10/26/2025 10/25/2024, 12/19 DTaP/Tdap/Td Vaccines (3 - Td or Tdap) 12/30/2025 12/31/2015, 04/21/2010, 04/08/1997 Hepatitis B Vaccines Completed 10/31/2008, 03/28/2008, 02/23/2008 Hepatitis A Vaccines Aged Out 12/10/2015 No long er eligible based on patient's age to complete this topic Zoster Vaccines Completed 05/28/2022, 01/14/2022 HIB Vaccines Aged Out No longer eligi [...] Diagnosis Comments Full PROPHYLAXIS - ADULT Routine 025 8:00 AM EDT Dental plaque BITEWINGS - 4 RADIOGRAPHIC IMAGES Routine 10/25/2024 8:00 AM EDT Dental plaque Extruded tooth Partial edentulism, unspecified edentulism class Excessive attrition of teeth, limited to enamel PERIODIC ORAL EVALUATION - ESTABLISHED PATIENT Routine 10/25/2024 8:00 AM EDT from Last 3 Months or Most Recently Relevant to Health Maintenance Insurance [facility] MEDICAID STAND ADULT
--- OUTSIDE RECORDS SUMMARY | 2025-02-07 15:02 | XMS_ITS | Clinical Summary ---
Author Organization [facility] Address [address] [place] [address] Phone Care Team Providers Care Administrative Staff Supervisor Name Role Phone Viviana Guaman MD Primary Care Provider [phone] Allergies No known active allergies Medications albuterol HFA (PROAIR HFA ; PROVENTIL HFA ; VENTOLIN HFA) 90 mcg/actuation inhaler Inhale 2 puffs by mouth 4 (four) times a day. 5 Active atorvastatin (LIPITOR) 40 mg tablet Take 1 tablet (40 mg total) by mouth 1 (one) time each day. 5 Active calcium carbonate 1,500 mg (600 mg elemental calcium) tablet Take 600 mg by mouth 1 (one) time each day. 5 Active Vitamin D3 25 mcg (1,000 unit) capsule Take 1 capsule (1,000 Units total) by mouth 1 (one) time each day. 5 Active dorzolamide (TRUSOPT) 2 % ophthalmic solution Administer 1 drop into both eyes 3 (three) times a day. Active esomeprazole (NexIUM) [address] capsule Take 1 capsule (20 mg total) by mouth 1 (one) time each day before breakfast. 5 Active latanoprost (XALATAN) 0.005 % ophthalmic solution Administer 1 drop into both eyes at bedtime. 5 Active loratadine (CLARITIN) 10 mg tablet Take 1 tablet (10 mg total) by mouth 1 (one) time each day. Active montelukast (SINGULAIR) 10 mg tablet Take 1 tablet (10 mg total) by mouth at bedtime. Active naproxen (NAPROSYN) 500 mg tablet Take 1 tablet (500 mg total) by mouth 2 (two) times a day with meals. 5 Active pantoprazole (PROTONIX) 40 mg EC tablet Take 1 tablet (40 mg total) by mouth 1 (one) time each day before breakfast. 5 Active omeprazole (PriLOSEC) [address] capsule Take 1 capsule (20 mg total) by mouth 1 (one) time each day. 4 Active Trelegy Ellipta 200-62.5-25 mcg inhaler Inhale 1 puff (200 mcg total) by mouth 1 (one) time each day. 1 each 11 5 02/17/20 25 Active Trelegy Ellipta 200-62.5-25 mcg inhaler Inhale 1 puff (200 mcg total) by mouth 1 (one) time each day. 01/18/20 Discontinu ed(Reorder ) Active Problems Problem Noted Date Diagnosed Date Pulmonary emphysema ([facility] V24, [facility] V28) 0 01/16/2025 GERD (gastroesophageal reflux disease) 5 Ill-fitting dentures 01/05/2024 Dental plaque 12/20/2023 Excessive attrition of teeth, limited to enamel 12/20/2023 Extruded tooth 12/20/2023 Partial edentulism 12/20/2023 Hyperlipidemia 11/03/2012 Osteoarthritis of knee 05/19/2012 Asthma 12/17/2011 Encounters Date Type Department Care Team Description 01/17/2025 10:00 AM EDT Office Visit Pulmonol - [address] [place] [address] Jeannette Jenkins MD Centrilobular emphysema ([facility] V24, [facility] V28) (Primary Dx); Gastroesophageal reflux disease without esophagitis; Status post dilation of esophageal narrowing from Last 3 Months Social History Tobacco Use Types Packs/Day Years Used Date Smoking Tobacco: Never Passive Smoke Exposure: Never Smokeless Tobacco: Never Comments Unknown Sex and Gender Information Value Date Recorded Sex Assigned at Female 09/28/2024 10:03 AM EST Legal Sex Female 4:51 AM EST Gender Identity Female 09/28/2024 10:03 AM EST Sexual Orientation Straight 09/28/2024 10 :03 AM EST Obstetrics History Last Filed Vital Signs Vital Sign Reading Time Taken Comments Blood Pressure 131/64 01/17/2025 10:20 AM EDT Pulse 65 01/17/2025 10:20 AM EDT Temperature 36.1 C (97 F) 01/17/2025 10:20 AM EDT Respiratory Rate 17 01/17/2025 10:20 AM EDT Oxygen Saturation 98% 01/17/2025 10:20 AM EDT Inhaled Oxygen Concentration - - Weight 67 kg (147 lb 9.6 oz) 01/17/2025 10:20 AM EDT Height 144.8 cm (4' 9 ) 01/17/2025 10:20 AM EDT Body Mass Index 31.94 01/17/2025 10:20 AM EDT Plan of Treatment Upcoming Encounters Date Type Department Care Team ([facility] st Contact Info) Description 04/18/2025 10:15 AM EDT Office Visit Pulmonolgy - [place] [address] [facility] [address] [place] [phone] Jeannette Jenkins MD [address] [address] Health Maintenance Due Date Last Done Comments [...] 09/06/2024 Social Influencers of Health Screening 09/06/2024 Influenza Vaccine (#1) 2025 4, 04/15/2023, 05/06/2022, Additional history exists DTaP,Tdap,and Td Vaccines (4 - Td or [...] Subscriber Plan / Payer (Ef fective 2023-Present) Name:GABBIE COOPER Relation to Subscriber:Self Name:Gabbie Alejandre Payer ID:[id number] Group ID:[id number] Type:Not on file Address: [place] [address] [place] [id number] Care Teams Administrative Staff Supervisor Relationship Specialty Start Date End Date Viviana Guaman MD [address] [place] [address] , [address] [facility] D/B/A: [facility] [place], [place] PCP - General Internal Medicine 09/28/24
[2025-02-19 11:00] VITALS: BMI 32.7
--- NOTE | 2025-02-20 10:12 | HO.ANESPROP2 ---
HPI - Anesthesia Eval Consult details Narrative: 69yo F for Upper Endoscopy PMFSH Active Problems Active Problems: All Active Problems Cricopharyngeal achalasia (Acute) Gastritis (Acute) Achalasia (Acute) Hospital discharge follow-up (Acute) Osteoarthritis of right knee (Acute) Osteoarthritis of left knee (Acute) Allergic rhinitis (Acute) Left ankle pain (Acute) Left knee pain (Acute) Hypovitaminosis D (Acute) Physical exam (Acute) Postmenopausal (Acute) Glaucoma (Acute) Fungal rash of torso (Acute) Encounter for annual routine gynecological examination (Acute) Vaginal pruritus (Acute) Skin lesion (Acute) Bug bite (Acute) Oral thrush (Acute) Severe asthma (Acute) Emphysema lung (Acute) GERD (gastroesophageal reflux disease) (Acute) KEI (mycobacterium avium-intracellulare) (Acute) Pernicious anemia (Acute) Pure hypercholesterolemia (Acute) Past Medical History Medical History Glaucoma Asthma Emphysema lung GERD (gastroesophageal reflux disease) KEI (mycobacterium avium-intracellulare) Pernicious anemia Pure hypercholesterolemia Family History Family History Father Diabetes Hypertension Stroke Mother Diabetes Hypertension Breast cancer, Onset Age: 69 Status post mastectomy Son No problems noted. Family/Other FH: mental illness Family history of problems with anesthesia: No Surgical History Surgical History Hx of colonoscopy History of esophagogastroduodenoscopy (EGD) Hx of tubal ligation History of section History of cholecystectomy History of tonsillectomy History of Problems with Anesthesia: No Social History Social History Household Members: None Household Members Other:: Housing: Apartment Are you a primary regular senior care provider to a significant other at home: No Do you presently have visiting nurse or other home services: No Alcohol intake: never Patient Tobacco Use Status: Never used Tobacco e-Cigarette/Vaping Use: Never Used Second Hand Smoke Exposure: No Use of substances other than those prescribed or required for medical reasons: No Advance Directives: No Advance Directives Information Provided: Yes Patient : No service: No Current occupational status: retired Cognitive needs: No Hearing needs: No Vision needs: No Meds Allergies Allergy/AdvReac Type Severity Reaction Status Date / Time lobster Allergy Mild Vomiting Verified 01/02/25 11:28 Home Medications ?Medication ?Instructions ?Recorded ?Confirmed ?Last Taken ?Type albuterol sulfate 2.5 mg/3 mL 2.5 mg inhalation TID 07/22/20 02/19/25 Unknown History (0.083 %) solution for nebulization montelukast 10 mg tablet 10 mg PO DAILY 07/22/20 02/19/25 Unknown History dorzolamide 2 % eye drops 1 drp ophthalmic (eye) BID 01/14/22 02/19/25 Unknown History fluticasone fur. 200 mcg-umeclid 1 ea inhalation DAILY 01/14/22 02/19/25 Unknown History 62.5 mcg-vilant 25 mcg inhalat.powder (Trelegy Ellipta) latanoprost 0.005 % eye drops 1 drp ophthalmic (eye) BEDTIME 01/14/22 02/19/25 Unknown History albuterol sulfate 90 mcg/actuation 2 puff inhalation Q4H PRN 09/19/24 02/19/25 Unknown History aerosol inhaler Shortness Of Breath Or Wheezing Exam Height,Weight and Vital Signs: Height 4 ft 9 in Weight 68.492 kg Pertinent Lab Results Pertinent Lab Results: Laboratory Tests 09/10/23 11/26/24 12:55 07:09 WBC 7.7 Hgb 12.8 Hct 40.2 Plt Count 295 Sodium 141 Potassium 4.1 Chloride 106 Carbon Dioxide 27 BUN 21 H Creatinine 0.77 Narrative Narrative: EKG 2023 Vent. Rate : 088 BPM Atrial Rate : 088 BPM P-R Int : 174 ms QRS Dur : 080 ms QT Int : 342 ms P-R-T Axes : 081 048 079 degrees QTc Int : 413 ms Normal sinus rhythm Normal ECG When compared to the previous EKG of No significant changes seen UGIS 06/2024: 1. Mild cricopharyngeal achalasia. 2. Moderately disorganized esophageal peristalsis. 3. Small type I hiatal hernia with moderate to significant gastroesophageal reflux. 4. Limited evaluation of the gastric mucosa due to suboptimal coating of the barium. No obvious masses or ulcerations are seen. The areae gastrica have a prominent appearance, suggestive of gastritis. Assessment and Plan Assessment Anesthesia Assessment: Chart Reviewed Final Anesthetic Review Family History of Problems with Anesthesia: No History of Problems with Anesthesia: No
[2025-02-21 10:07] VITALS: BP 144/57; PULSE 60; RESP 16; TEMP 36.4; O2SAT 97
[2025-02-21] MEDS: Lactated Ringers 1,000 ML 100 ML IVCONT (10:08)
--- NOTE | 2025-02-21 11:15 | P.CONAN_ITS ---
[facility] Active Problems Active Problems: All Active Problems (Updated 02/19/25 @ 10:56 by Gem Leslie RN) Cricopharyngeal achalasia (Acute) Gastritis (Acute) Achalasia (Acute) Hospital discharge follow-up (Acute) Osteoarthritis of right knee (Acute) Osteoarthritis of left knee (Acute) Allergic rhinitis (Acute) Left ankle pain (Acute) Left knee pain (Acute) Hypovitaminosis D (Acute) Physical exam (Acute) Postmenopausal (Acute) Glaucoma (Acute) Fungal rash of torso (Acute) Encounter for annual routine gynecological examination (Acute) Vaginal pruritus (Acute) Skin lesion (Acute) Bug bite (Acute) Oral thrush (Acute) Severe asthma (Acute) Emphysema lung (Acute) GERD (gastroesophageal reflux disease) (Acute) KEI (mycobacterium avium-intracellulare) (Acute) Pernicious anemia (Acute) Pure hypercholesterolemia (Acute) Past Medical History Medical History Glaucoma Asthma Emphysema lung GERD (gastroesophageal reflux disease) KEI (mycobacterium avium-intracellulare) Pernicious anemia Pure hypercholesterolemia Functional capacity: independent ambulation Patient : No Family History Family History Father Diabetes Hypertension Stroke Mother Diabetes Hypertension Breast cancer, Onset Age: 69 Status post mastectomy Son No problems noted. Family/Other FH: mental illness Family history of problems with anesthesia: No Surgical History Surgical History Hx of colonoscopy History of esophagogastroduodenoscopy (EGD) Hx of tubal ligation History of section History of cholecystectomy History of tonsillectomy History of Problems with Anesthesia: No Social History Social History Household Members: None Household Members Other:: Housing: Apartment Are you a primary resident care assistant to a significant other at home: No Do you presently have visiting nurse or other home services: No Alcohol intake: never Patient Tobacco Use Status: Never used Tobacco e-Cigarette/Vaping Use: Never Used Second Hand Smoke Exposure: No Use of substances other than those prescribed or required for medical reasons: No Advance Directives: No Advance Directives Information Provided: Yes service: No Current occupational status: retired Cognitive needs: No Hearing needs: No Vision needs: No Meds Allergies Allergy/AdvReac Type Severity Reaction Status Date / Time lobster Allergy Mild Vomiting Verified 01/02/25 11:28 Active Medications: Current Medications Albuterol Sulfate (Albuterol Sulfate (0.083%) 2.5 Mg/3 Ml Vial.Neb) 2.5 mg INHALE ONCE PRN PRN Reason: Shortness of Breath/Wheezing Lactated Ringer's (Lr) 1,000 mls @ 100 mls/hr IVCONT .Q10H RICK Last Admin: 02/21/25 10:08 Dose: 100 mls/hr Home Medications ?Medication ?Instructions ?Recorded ?Confirmed ?Last Taken ?Type albuterol sulfate 2.5 mg/3 mL 2.5 mg inhalation TID 02/19/25 Unknown History (0.083 %) solution for nebulization montelukast 10 mg tablet 10 mg PO DAILY 07/22/20/04/18 Unknown History dorzolamide 2 % eye drops 1 drp ophthalmic (eye) BID 0 01/14/22 02/19/25 Unknown History fluticasone fur. 200 mcg-umeclid 1 ea inhalation DAILY 01/14/22 02/19/25 Unknown History 62.5 mcg-vilant 25 mcg inhalat.powder (Trelegy Ellipta) latanoprost 0.005 % eye drops 1 drp ophthalmic (eye) B EDTIME 01/14/22 02/19/25 Unknown History albuterol sulfate 90 mcg/actuation 2 puff inhalation Q 4H PRN 09/19/24 02/19/25 Unknown History aerosol inhaler Shortness Of Breath Or Wheez ing Exam Height,Weight and Vital Signs: Height 4 ft 9 in Weight 68.492 kg Last Vital Signs Temp 97.6 F 02/21/25 10:07 Pulse 60 02/21/25 10:07 Resp 16 02/21/25 10:07 BP 144/57 H 02/21/25 10:07 Pulse Ox 97 02/21/25 10:07 O2 Del Method Room Air 02/21/25 10:07 Airway Mallampati Class: III TM Dist: >3cm Neck ROM: Full Heart: RRR Lungs: CTA Assessment and Plan Final Anesthetic Review Family History of Problems with Anesthesia: No History of Problems with Anesthesia: No NPO: Yes ASA Class: III Final Preanesthetic Review: Meds/Allgs Chart Reviewed, Consent Obtained/Reviewed and Anes Risks/Benef Reviewed Patient Risk: Intermediate Procedure Risk: Low Anesthetic Plan Anesthetic Plan: MAC: Disposition: Standard PACU
--- NOTE | 2025-02-21 12:10 | MHC.SHP ---
Pre-Procedural Eval Section A - 24 Hr Update-Section A only Date of Service: 02/21/25 Section B - Complete if H&P > 30 days Chief Complaint: Dysphagia, unspecified Details of Present Illness: Glaucoma Asthma Emphysema lung GERD (gastroesophageal reflux disease) KEI (mycobacterium avium-intracellulare) Pernicious anemia Pure hypercholesterolemia Surgical History (Updated 02/19/25 @ 10:57 by Gem Leslie RN) Hx of colonoscopy History of esophagogastroduodenoscopy (EGD) Hx of tubal ligation History of section History of cholecystectomy History of tonsillectomy Allergies: Allergies Allergy/AdvReac Type Severity Reaction Status Date / Time lobster Allergy Mild Vomiting Verified 01/02/25 11:28 Review of Systems Review of Systems Comment: Ten point ROS negative Exam Exam Comment: Gen appear: No acute distress HEENT: no icterus Chest: No overt resp distress Abd: soft, nontender, nondistended Psych: Stable affect, answering questions appropriately Neuro: A/Ox3 noted to move all extremities spontaneously Ext: no peripheral edema Plan Diagnosis/Plan: Unchanged I have reviewed the history and physical and performed a pertinent physical examination on my patient. No changes have occurred unless specified. Time Spent With Patient Time: Total time managing care of this patient today ____ minutes.
--- NOTE | 2025-02-21 12:11 | P.OP_ITS ---
Operative Note Operative Note Date of Service: 02/21/25 Narrative: Procedure: Esophagogastroduodenoscopy Endoscopist: Emmanuelle Thrasher MD Indication: Dysphagia, atrophic gastritis Anesthesia Provider: Dr Kera Mckeno Anesthesia Type: MAC ?? EGD Procedure:?? The procedure, indications, preparation and potential complications were reviewed with the patient, who indicated understanding and gave written informed consent to proceed. A physical exam was performed. The endoscope was introduced through the mouth, and advanced to the second part of duodenum. The mucosa was carefully examined on slow withdrawal of the endoscope. The patient tolerated the procedure well. There were no immediate complications.? ? EGD Findings:? * Esophagus:? Normal mucosa noted in the entire esophagus. The Z line was at 35 cm and irregular < 1 cm. * Stomach:? Atrophic appearance of body and fundus. Retroflexion was performed in the cardia. Cold forceps gastric biopsies were performed as per Kasia protocol to r/o metaplasia and dysplasia. A few opaque white islands were noted in antrum, these were biopsied separately as nodules to r/o NET. * Duodenum:? Normal duodenal mucosa. Additional intervention: Soft tip Savary wire was introduced through the biopsy channel of the gastroscope and advanced to the antrum. ?The gastroscope was then backed out. ?Savary Cookie bougie was advanced over the guidewire and the esophagus was dilated to 17 mm with resistance felt. ?On relook, superficial tear was noted at 17 cm confirming successful dilation. ? ? EGD Impressions:? * Cricopharyngeal stenosis (dilation) * Atrophic gastritis (biopsy) * Duodenitis ?? Recommendations:?? * Follow biopsy results. Our office will call or send a letter with results within 7-10 days. * Avoid NSAIDs. * Repeat upper endoscopy for dysphagia to be set up as needed for recurrence of symptoms. * Surveillance upper endoscopy for atrophic gastritis contingent on extent and grade on histology as well as if NET present. Above has been reviewed with the patient.
[2025-02-21 12:50] VITALS: BP 155/69; PULSE 64; RESP 16; TEMP 36.5; O2SAT 97
[2025-02-21 13:00] VITALS: BP 150/64; PULSE 64; RESP 16; O2SAT 97
[2025-02-21 13:15] VITALS: BP 160/66; PULSE 64; RESP 16; TEMP 36.5; O2SAT 97
[2025-02-21 13:30] VITALS: BP 168/72; PULSE 54; RESP 16; O2SAT 97
[2025-02-21 13:45] VITALS: BP 171/74; PULSE 56; RESP 16; TEMP 36.2; O2SAT 97
== END 2025-02-21 14:23 | disposition home or self-care (01) ==
PROVIDERS: PCP Internal Medicine; Visit Provider Internal Medicine
PROC: 0DJ08ZZ Inspection of Upper Intestinal Tract, Via Natural or Artificial Opening Endoscopic (ICD-10-PCS; CPT 43235; principal; 2025-02-21 13:10)
DX: R13.10 Dysphagia, unspecified (principal); K29.40 Chronic atrophic gastritis without bleeding; K29.80 Duodenitis without bleeding; K22.0 Achalasia of cardia; K21.9 Gastro-esophageal reflux disease without esophagitis; D51.0 Vitamin B12 deficiency anemia due to intrinsic factor deficiency; J44.9 Chronic obstructive pulmonary disease, unspecified; E78.00 Pure hypercholesterolemia, unspecified; Z79.51 Long term (current) use of inhaled steroids; Z79.899 Other long term (current) drug therapy; Z98.890 Other specified postprocedural states
CPT/HCPCS: 43248; 43239; 36415; 84443; 88305; 88313; 88342; C1769; J2003; J2704

== ENCOUNTER → 2025-02-21 08:32 | Outpatient (BNV) | payer OTHER, SELFPAY | PROVIDERS: PCP Internal Medicine; Visit Provider Internal Medicine | DX: J38.6 Stenosis of larynx (principal); R13.10 Dysphagia, unspecified; K29.90 Gastroduodenitis, unspecified, without bleeding | CPT/HCPCS: 43248 ==

== ENCOUNTER 2025-04-22 10:24 | Outpatient (REF) | payer OTHER, SELFPAY ==
--- NOTE | ~2025-04-22 | MM_ITS ---
EXAMINATION: MM SCREENING DIGITAL BREAST TOMOSYNTHESIS, BILATERAL CLINICAL INFORMATION: Screening. Asymptomatic. COMPARISON: Mammography: Comparison is made with available priors TECHNIQUE: Digital breast mammography with tomosynthesis is performed in both the craniocaudal and mediolateral oblique views along with computer-aided detection (CAD). FINDINGS: There are scattered areas of fibroglandular density. There are no significant masses, abnormal calcifications, or other abnormalities. MM/MM tomosynthesis screening BI IMPRESSION: No mammographic evidence of malignancy. ASSESSMENT: BI-RADS Category 1: Negative RECOMMENDATION: Routine annual mammography screening. 1 year F/U This examination should not preclude the clinical evaluation of a suspicious palpable abnormality. This patient's information was entered into a reminder system with a target due date for their next mammogram. Electronically signed by: Trena Bryan DO 04/23/2025 04:52 PM EDT
--- OUTSIDE RECORDS SUMMARY | 2025-04-22 11:37 | XMS_ITS | Clinical Summary ---
Author Organization [employer] Address 75 [facility] 7t [place] [address] Care Team Providers Care Wood Milling Machine Tender Name Role Phone Unavailable Primary Care Provider [...] mouth at bed time. 4 Active Creon 4494-7167 units capsule TOME 1 C PSULA POR [...] Care Team (Late st Contact Info) Description 05/09/2025 9:30 AM EDT Office Visit [facility] [address] [place] [address] Con, Therese [address] [place] [address] Health Maintenance Due Date Last Done Comments [...] of 2 - PCV) 01/14/2023 01/14/2022, 09/09/2005 Dental X-Ray: Full Mouth 01/21/2025 01/20/2022 COVID-19 Vaccine ( season) 2025 12/07/2021, 06/10/2021, 10/21/2020, Additional history exists Influenza Vaccine (#1) 2025 , 04/15/2023, 05/06/2022, [...] Most Recently Relevant to Health Maintenance Insurance [facility] MEDICAID STAND ADULT DENTAL - [facility]
--- OUTSIDE RECORDS SUMMARY | 2025-04-22 11:37 | XMS_ITS | Encounter Summary ---
Author Organization [employer] Address [address] [facility] [address] [place] [address] Care Team Providers Care Shotgun Shell Loading Machine Operator Name Role Phone Unavailable Primary Care Provider Unavailabl e Encounter Details Date Type Department Care Team (Latest Contact Info) Description 10/19/2018 Abstract [facility] CONVERSIONS Dental, Provider, DDS Social History [...] Description 05/09/2025 9:30 AM EDT Office Visit [facility]ULT [facility] [address] [place] [address] Mario Andujararis [address] [place] [address] documented as of this encounter Visit Diagnoses Not on filedocumented in this encounter
--- OUTSIDE RECORDS SUMMARY | 2025-04-22 11:37 | XMS_ITS | Clinical Summary ---
Author Organization [facility] Address [address] [place] [address] Phone Care Team Providers Care Lead Software Architect Name Role Phone Viviana Guaman MD Primary Care Provider [phone] Allergies No known active allergies Medications albuterol [...] 1 (one) time each day. 1 each 5 Active Active Problems Problem Noted Date Diagnosed Date Pulmonary emphysema ([facility] V24, [facility] V28) 0 01/16/2025 GERD (gastroesophageal reflux disease) 5 Ill-fitting dentures 01/05/2024 Dental plaque 12/20/2023 Excessive attrition of teeth, limited to enamel 12/20/2023 Extruded tooth 12/20/2023 Partial edentulism 12/20/2023 Hyperlipidemia 11/03/2012 Osteoarthritis of knee 05/19/2012 Asthma 12/17/2011 Social History Tobacco Use Types Packs/Day Years [...] Team (Late st Contact Info) Description 05/01/2025 9:00 AM EDT Office Visit Pulmonology - [place] [address] [place] [address] Jeannette Jenkins MD [facility] [place] [address] Health Maintenance Due Date Last Done Comments Breast Cancer Screening 1955 RSV Immunization Adult Patients (1 - Risk 60-74 years 1-dose series) 2015 Pneumococcal Vaccine: 50+ Years (2 of 2 - PCV) 01/14/2023 01/14/2022, 09/09/2005 Depression Screening 07/25/2024 Cholesterol Screening (Lipid Panel) 09/06/2024 Colorectal Cancer Screening: Colonoscopy 09/06/2024 Falls Risk Assessment 09/06/2024 Hepatitis C Screening 09/06/2024 Medicare Annual Wellness Visit 09/06/2024 Osteoporosis Screening (Bone Density Screening) 09/06/2024 Social Influencers of Health Screening 09/06/2024 COVID-19 Vaccine ( season) 2025 12/07/2021, 06/10/2021, 10/21/2020, Additional history exists Influenza Vaccine (#1) 2025 , 04/15/2023, 05/06/2022, Additional history exists DTaP,Tdap,and Td [...] Plan / Payer (Ef fective 2023-Present) Name:Gabbie Lawton Relation to Subscriber:Self Name:Gabbie Alejandre Payer ID:[id number] Group ID:[id number] Type:Not on file Address: [place] [address] [address] [id number] Care Teams Lead Software Architect Relationship Specialty Start Date End Date Viviana Guaman MD [address] [place] [address] , [address] Physician Associ D/B/A: [facility] [place], [place] PCP - General Internal Medicine 09/28/24
--- OUTSIDE RECORDS SUMMARY | 2025-04-22 11:37 | XMS_ITS | Encounter Summary ---
Author Organization [employer] Address [address] [facility] 7[address] [place] [address] Care Team Providers Care Internet Retailer Name Role Phone Unavailable Primary Care Provider Unavailabl e Encounter Details Date Type Department Care Team (Latest Contact Info) Description 06/02/2021 Abstract [facility] CONVERSIONS Dental, Provider, DDS Social History [...] Description 05/09/2025 9:30 AM EDT Office Visit [facility] ADULT DENTAL [address] [place] [address] Con Therese [address] [place] [address] documented as of this encounter Visit Diagnoses Not on filedocumented in this encounter
== END 2025-04-22 10:25 | disposition home or self-care (01) ==
LOC: HO.MAMMO 10:24
PROVIDERS: PCP Internal Medicine; Visit Provider Internal Medicine
DX: Z12.31 Encounter for screening mammogram for malignant neoplasm of breast (principal)
CPT/HCPCS: 77063; 77067

== ENCOUNTER → 2025-04-22 10:45 | Outpatient (BNV) | payer OTHER, SELFPAY | PROVIDERS: PCP Internal Medicine; Visit Provider Internal Medicine | DX: Z12.31 Encounter for screening mammogram for malignant neoplasm of breast (principal) | CPT/HCPCS: 77063; 77067 ==

== ENCOUNTER 2025-04-29 06:54 | Outpatient (REF) | payer OTHER, SELFPAY ==
[2025-04-29 07:06] LABS: MANUAL DIFF FLAG NO
--- OUTSIDE RECORDS SUMMARY | 2025-04-29 07:08 | XMS_ITS | Encounter Summary ---
Author Organization [employer] Address [address] [facility] [address] [place] [address] Care Team Providers Care Research And Evaluation Manager Name Role Phone Unavailable Primary Care Provider Unavailabl e Encounter Details Date Type Department Care Team (Latest Contact Info) Description 10/19/2018 Abstract [facility] CONVERSIONS Dental, Provider, DDS Social [...] Description 05/09/2025 9:30 AM EDT Office Visit [facility] ADULT DENTAL [address] [place] [address] Mario Andujararis [address] [place] [address] documented as of this encounter Visit Diagnoses Not on filedocumented in this encounter
--- OUTSIDE RECORDS SUMMARY | 2025-04-29 07:08 | XMS_ITS | Encounter Summary ---
Author Organization [employer] Address [address] [facility] 7t [place] [address] Care Team Providers Care Director Radio News Name Role Phone Unavailable Primary Care Provider Unavailabl e Encounter Details Date Type Department Care Team (Latest Contact Info) Description 06/02/2021 Abstract [facility] CONVERSIONS Dental, Provider, DDS Social [...] Description 05/09/2025 9:30 AM EDT Office Visit [facility] ADULT DENTAL [address] [place] [address] Con Therese [address] [place] [address] documented as of this encounter Visit Diagnoses Not on filedocumented in this encounter
--- OUTSIDE RECORDS SUMMARY | 2025-04-29 07:08 | XMS_ITS | Clinical Summary ---
Author Organization [employer] Address [address] [facility] 7[address] [place] [address] Care Team Providers Care Horse Groomer Name Role Phone Unavailable Primary Care Provider [...] mouth at bed time. 4 Active Creon 1050-7253 units capsule TOME 1 C PSULA POR [...] Description 05/09/2025 9:30 AM EDT Office Visit [facility] ADULT DENTAL [address] [place] [address] Con, Therese [address] [place] [address] Health Maintenance Due Date Last Done Comments [...] Most Recently Relevant to Health Maintenance Insurance [facility] MEDICAID STAND ADULT DENTAL - [facility]
--- OUTSIDE RECORDS SUMMARY | 2025-04-29 07:08 | XMS_ITS | Clinical Summary ---
Author Organization [facility] Address [address] [place] [address] Phone Care Team Providers Care Lime Slaker Name Role Phone Viviana Guaman MD Primary Care Provider [phone] Allergies No known active allergies Medications albuterol [...] Problem Noted Date Diagnosed Date Pulmonary emphysema ([facility] V24, [facility] V28) 0 01/16/2025 GERD (gastroesophageal reflux [...] 9:00 AM EDT Office Visit Pulmonology - [place] [address] [place] [address] Jeannette Jenkins MD [facility] [place] [address] Health Maintenance Due Date Last Done Comments Breast Cancer Screening 1955 Colorectal Cancer Screening: Colonoscopy 1955 RSV Immunization Adult Patients (1 - Risk 60-74 years 1-dose series) 2015 Pneumococcal Vaccine: 50+ Years (2 of 2 - PCV) 01/14/2023 01/14/2022, 09/09/2005 Depression Screening 07/25/2024 Cholesterol Screening (Lipid Panel) 09/06/2024 Falls Risk Assessment 09/06/2024 Hepatitis C [...] ID:[id number] Group ID:[id number] Type:Not on file Address: [place] [address] [address] [address] Care Teams Lime Slaker Relationship Specialty Start Date End Date Viviana Guaman MD [address] [place] [address] , [address] Physician Associ D/B/A: [facility] [place], [place] PCP - General Internal Medicine 09/28/24
[2025-04-29 07:24] LABS: Hematocrit 40.4 % (37.0-47.0); Hemoglobin 13.1 g/dl (12.0-16.0); Imm Gran Abs Auto 0.02 X10*3/uL (0.00-0.03); Imm Gran Pct Auto 0.3 % (0.0-0.4); Lymphocytes Absolute Auto 2.9 X10*3/uL (1.2-4.9); Mean Corpuscular HGB Conc 32.4 g/dl (31.0-35.0); Mean Corpuscular Hemoglobin 26.4 pg (27.0-33.0); Mean Corpuscular Volume 81.5 fL (80.0-98.0); NRBC Abs Auto 0.000 X10*3/uL (0.0-0.012); NRBC Pct Auto 0.0 /100WBC (0.0-0.2); Platelet Count 347 X10*3/uL (160-400); Red Blood Count 4.96 X10*6/uL (4.20-5.50); White Blood Count 7.7 X10*3/uL (4.8-10.8)
[2025-04-29 08:02] LABS: Alanine Aminotransferase 20 U/L (0-31); Albumin Level 4.5 g/dL (3.5-5.0); Alkaline Phosphatase 119 U/L (39-117); Anion Gap 10 (12-20); Aspartate Amino Transferase 26 U/L (5-31); Blood Urea Nitrogen 15 mg/dL (9-16); Calcium 9.5 mg/dL (8.4-10.2); Carbon Dioxide 31 mmol/L (22-29); Chloride 105 mmol/L (96-108); Cholesterol 187 mg/dL (<200); Estimated Glomerular Filt Rate > 60; HDL Cholesterol 50 mg/dL (>40); Iron 60 mcg/dL (30-160); Percent Iron Saturation 17 % (15-50); Potassium 4.0 mmol/L (3.3-5.1); Sodium 142 mmol/L (135-145); Total Iron Binding Capacity 343 mcg/dL (228-428); Total Protein 7.6 g/dL (6.5-8.0); Triglycerides 173 mg/dL (<150); Unsaturated Iron Binding 283 ug/dL
[2025-04-29 08:29] LABS: Folate 11.5 ng/mL (> or = 4.0); Vitamin B12 808 pg/mL (200-900)
== END 2025-04-29 06:55 | disposition home or self-care (01) ==
LOC: HO.LAB 06:54
PROVIDERS: PCP Internal Medicine; Visit Provider Internal Medicine
DX: J43.1 Panlobular emphysema (principal); D64.9 Anemia, unspecified; E78.5 Hyperlipidemia, unspecified; E53.8 Deficiency of other specified B group vitamins; E55.9 Vitamin D deficiency, unspecified
CPT/HCPCS: 36415; 80053; 80061; 82306; 82607; 82746; 83540; 85025

== ENCOUNTER 2025-05-27 09:36 | Outpatient (AMB) | payer OTHER, SELFPAY ==
--- NOTE | 2025-05-27 09:40 | A.OFFPC_ITS ---
Vital Signs 05/27/25 09:42 Height 4 ft 9 in Weight 146 lb 2 oz BMI 31.6 BP 120/62 Blood Pressure Location Lt brachial Position Sitting Pulse 59 Pulse Source Pulse Oximeter Temp 96.6 F L Temp Source Temporal Artery Scan Pulse Oximetry (%) 97 Oxygen Delivery Method Room Air Intake Visit Reasons: emphysema Intake Note: Patient is here to follow up on Emphysema. Automotive Service Management Teacher Required: No Stand Up Forklift Operator: Not Required per policy Accompanied by: Self / Same As Patient Allergies lobster Allergy (Mild, Verified 05/27/25 09:59) Vomiting Medication List - Last Reconciled 05/27/25 by Viviana Guaman MD albuterol sulfate 2.5 mg inhalation TID albuterol sulfate 90 mcg/actuation 2 puffs inhalation Q4H PRN atorvastatin 40 mg PO DAILY 90 days calcium carbonate (Calcium 600) 600 mg PO BID 30 days cane As directed cholecalciferol (vitamin D3) 25 mcg PO DAILY 90 days dorzolamide 2% 1 drp ophthalmic (eye) BID esomeprazole magnesium 20 mg PO DAILY cziudxmxyiz-kiklttkym-qrncflvn 200-62.5-25 mcg (Trelegy Ellipta) 1 ea inhalation DAILY latanoprost 0.005% 1 drp ophthalmic (eye) BEDTIME loratadine 10 mg PO DAILY PRN 90 days Magic Mouthwash Diphen/Lido/Antacid 1:1:1 10 mL PO TID PRN 2 days montelukast 10 mg PO DAILY Tobacco use date assessed: 05/27/25 Fall risk assessment: No Falls in past year Last assessed Fall Risk: 05/27/25 Dental Screening Dental Screen Date: 10/31/24 HPI HPI Comments History of Present Illness Details The patient is a 70-year-old female presenting for follow-up of laboratory results and management of chronic conditions, including a new complaint of neuropathy. She was concerned about low hemoglobin based on a recent letter, but a review of labs from May 01 shows a normal hemoglobin of 13.1 g/dL, which is stable from a prior level of 12.8 g/dL. Her medical history includes Chronic Obstructive Pulmonary Disease (COPD) managed with Trelegy, hyperlipidemia on atorvastatin 40 mg, and allergies treated with Loratadine and Singulair. She also takes esomeprazole, calcium, and vitamin D. Recent labs showed a total cholesterol of 187, LDL of 103, and triglycerides of 50, all within a good range. Her Vitamin B12, folic acid, and vitamin D levels are normal. Regarding her gastrointestinal history, a stomach biopsy from March 24 revealed moderate to severe chronic inflammation in the greater curvature, but was negative for cancer or organisms. She was also noted to have geographic tongue. The patient's new complaint is neuropathy, with symptoms of cramping and heat in her feet, which is worse at night. She reports less severe symptoms in her hands. She does not have a history of diabetes. [facility] Medical History (Updated 05/27/25 @ 10:11 by Viviana Guaman MD) Glaucoma Asthma Emphysema lung GERD (gastroesophageal reflux disease) KEI (mycobacterium avium-intracellulare) Pernicious anemia Pure hypercholesterolemia Surgical History Hx of colonoscopy History of esophagogastroduodenoscopy (EGD) Hx of tubal ligation History of section History of cholecystectomy History of tonsillectomy Family History Father Diabetes Hypertension Stroke Mother Diabetes Hypertension Breast cancer, Onset Age: 69 Status post mastectomy Son No problems noted. Family/Other FH: mental illness Social History Household Members: None Household Members Other:: Housing: Apartment Are you a primary rn long term care to a significant other at home: No Do you presently have visiting nurse or other home services: No Alcohol intake: never Patient Tobacco Use Status: Never used Tobacco e-Cigarette/Vaping Use: Never Used Second Hand Smoke Exposure: No service: No Current occupational status: retired Cognitive needs: No Hearing needs: No Vision needs: Yes (Glasses) Female Reproductive History Menstrual Age of Menarche: 12 Questionnaire Thrive Questionnaire Date Thrive assessed: 10/31/24 I am a: Patient What is your living situation today?: I choose not to answer this question Within the past 12 months, did the food you bought not last and you didn't have the money to get more?: I choose not to answer this question Within the past 12 months, did you worry whether your food would run out before you got money to buy more?: I choose not to answer this question Do you have trouble paying for medicines?: I choose not to answer this question Do you have trouble getting transportation to medical appointments?: I choose not to answer this question Do you have trouble paying your heating and electricity bill?: I choose not to answer this question Do you have trouble taking care of your child, family member or friend?: I choose not to answer this question Do you have trouble with day-to-day activities such as bathing, preparing meals, shopping, managing finances, etc.?: I choose not to answer this question Are you currently unemployed and looking for a job?: I choose not to answer this question Are you interested in more education?: I choose not to answer this question Please select the resources that you would like help with: None Currently or been in a relationship where the following occur: I choose not to answer THRIVE Score: 0 BRIAN-7 AMB Questionnaire BRIAN-7 Date BRIAN - 7 assessed: 10/31/24 Source: Developed by Drs. Ky Fabian, Karissa Mullen, Clinton Stevens and colleagues, with an educational jona from [employer]. Review of Systems Const All systems reviewed & are unremarkable except as noted in HPI and below Card Denies chest pain at rest, Denies chest pain with activity, Denies edema, Denies irregular heart rhythm, Denies claudication, Denies dyspnea, Denies dyspnea on exertion, Denies orthopnea, Denies paroxysmal nocturnal dyspnea and Denies slow heart rate Resp Denies cough, Denies dyspnea and Denies dyspnea on exertion GI Denies abdominal pain, Denies change in bowel habits, Denies excessive flatus, Denies nausea and Denies vomiting Denies urinary incontinence, Denies urinary hesitancy and Denies urinary urgency Neuro Denies lack of coordination Physical exam (Primary Care) Vital Signs: Last Vital Signs Temp 96.6 F L 05/27/25 09:42 Pulse 59 05/27/25 09:42 BP 120/62 05/27/25 09:42 Pulse Ox 97 05/27/25 09:42 Oxygen Delivery Method Room Air 05/27/25 09:42 BMI result Body Mass Index 31.6 BMI Assessment/Plan discussion: High BMI High, discussed plan: lifestyle, weight reduction, dietary and physical activity Tobacco/Smoking Status: Tobacco use Status Tobacco use date assessed 05/27/25 05/27/25 09:46 Patient Tobacco Use Status Never used Tobacco 05/27/25 09:46 e-Cigarette/Vaping Use Never Used 05/27/25 09:46 Thrive Assessment: Date of Thrive Assessment Date Thrive assessed 10/31/24 05/27/25 09:46 Currently or been in a relationship where the following occur: I choose not to answer Resp Effort & Inspection: normal respiratory effort Auscultation: clear to auscultation bilaterally Cardio Jugular venous distension: no JVD Rate: regular rate Rhythm: regular rhythm Heart sounds: S1 normal heart sound present and S2 normal heart sound present Extrem General: Yes full ROM Office Procedures Flu Questionnaire Does the patient have a severe egg allergy?: No Does the patient have severe life threatening allergies?: No Does the patient have a fever or illness today?: No Has the patient ever had Guillain-Hastings Syndrome?: No Has the patient ever had any past reaction to a flu shot?: No Immunizations Fluarix 9036-3862 (PF) 45 mcg (15 mcg x 3)/0.5 mL IM syringe Performing Provider: Viviana Guaman MD [facility] Administered by: PEDRO Kruse on 05/27/25 10:20 Dose Route Admin Location Dispensed Lot Number Expiration Date [facility] Polysomnographic Technologist 0.5 mL IM Left Deltoid 0.5 mL [id number] 01/21/26 [id number] [employer] VIS Given Date VIS Provided VIS Publication Date 05/27/25 Single Vaccine 24 Eligibility Eligibility Date Funding Source Not [facility] Eligible 05/27/25 Private Coding Level of Care Code Est Pt Level 4 (44365) Complex EM visit Add On G2211 Diagnoses Atrophic gastritis K29.40 Neuropathy G62.9 Panlobular emphysema J43.1 Emphysema type: panlobular Pure hypercholesterolemia E78.00 Time Spent (min) 23 Assessment & Plan Assessment & Plan (1) Atrophic gastritis: Code(s): K29.40 - Chronic atrophic gastritis without bleeding Category: Medical (2) Neuropathy: Code(s): G62.9 - Polyneuropathy, unspecified Category: Medical (3) Emphysema lung: Code(s): J43.9 - Emphysema, unspecified Category: Medical Qualifiers: Emphysema type: panlobular Qualified Code(s): J43.1 - Panlobular emphysema (4) Pure hypercholesterolemia: Code(s): E78.00 - Pure hypercholesterolemia, unspecified Category: Medical Plan Plan 1. Peripheral Neuropathy The patient reports new symptoms of cramping and heat in her feet. While causes like vitamin B12 deficiency and diabetes were considered, her labs are normal and she has no history of diabetes. A referral to neurology and a nerve conduction study will be ordered to further evaluate the etiology. Treatment with gabapentin was discussed, with counseling provided on the side effect of somnolence, and it was suggested to initiate it at night. 2. Chronic Gastritis The patient has a history of moderate to severe chronic inflammation on a prior stomach biopsy, which was negative for malignancy. She will continue her current management with esomeprazole. 4. COPD Continue long-acting inhaler. Follow-up with pulmonology. 5. Pure hypercholesterolemia Continue statins. Repeat lipid panel in 6 months. Orders: Orders Influenza [id number] Immunization Today Z23 - Encounter for immunization Vitamin D 25-OH Total 6 Months E55.9 - Vitamin D deficiency, unspecified Vitamin B12 and Folate 6 Months E53.8 - Deficiency of other specified B group vitamins Lipid Panel 6 Months E78.5 - Hyperlipidemia, unspecified Comprehensive Met. Panel 6 Months R20.2 - Paresthesia of skin NE nerve conduction velocity Today R20.2 - Paresthesia of skin NE electromyogram (EMG) Today R20.2 - Paresthesia of skin Complete Blood Count Auto Diff 6 Months D64.9 - Anemia, unspecified IRON PROFILE 6 Months D64.9 - Anemia, unspecified Referrals Neurology Referral R20.2 - Paresthesia of skin Medications: New gabapentin 300 mg PO BEDTIME 90 caps 0RF 90 days
[2025-05-27 09:42] VITALS: BP 120/62; PULSE 59; TEMP 35.9; O2SAT 97; BMI 31.6
--- OUTSIDE RECORDS SUMMARY | 2025-05-27 11:00 | XMS_ITS | Encounter Summary ---
Author Organization [employer] Address [address] [facility] [address]t [place] [address] Care Team Providers Care Medical Laboratory Technical Officer Name Role Phone Unavailable Primary Care Provider Unavailabl e Encounter Details Date Type Department Care Team (Latest Contact Info) Description 10/19/2018 Abstract [facility] CONVERSIONS Dental, Provider, DDS Social History [...] Care Team (Late st Contact Info) Description 11/13/2025 9:30 AM EDT Office Visit [facility] ADULT DENTAL [address] [place] [address] Mario Andujararis [address] [place] [address] documented as of this encounter Visit Diagnoses Not on filedocumented in this encounter
--- OUTSIDE RECORDS SUMMARY | 2025-05-27 11:00 | XMS_ITS | Encounter Summary ---
Author Organization [employer] Address [address] [facility] [address] [place] [address] Care Team Providers Care Cook Helper Pastry Name Role Phone Unavailable Primary Care Provider Unavailabl e Encounter Details Date Type Department Care Team (Latest Contact Info) Description 06/02/2021 Abstract [facility] CONVERSIONS Dental, Provider, DDS Social History [...] Description 11/13/2025 9:30 AM EDT Office Visit [facility] ADULT DENTAL [address] [place] [address] Con Therese [address] [place] [address] documented as of this encounter Visit Diagnoses Not on filedocumented in this encounter
--- OUTSIDE RECORDS SUMMARY | 2025-05-27 11:00 | XMS_ITS | Clinical Summary ---
Author Organization [employer] Address [address] [facility] [address] [place] [address] Care Team Providers Care Flow Specialist Name Role Phone Unavailable Primary Care Provider [...] mouth at bed time. 4 Active Creon 3112-0636 units capsule TOME 1 C PSULA POR [...] Encounters Date Type Department Care Team Description 05/09/2025 9:30 AM EDT Office Visit [facility] ADULT DENTAL [address] [place] [address] Therese Andujar Localized gingival recession (Primary Dx); Missing teeth, acquired; Extruded tooth; Dental plaque; Excessive attrition of teeth, limited to enamel; Excessive attrition of teeth from Last 3 Months Immunizations Immunization Administration [...] Sign Reading Time Taken Comments Blood Pressure 122/74 05/09/2025 9:04 AM EDT Pulse 64 12/20/2023 9:32 AM EDT Temperature - - Respiratory Rate - - Oxygen Saturation - - Inhaled Oxygen Concentration - - Weight - - Height - - Body Mass Index - - Plan of Treatment Upcoming Encounters Date Type Department Care Team (Late st Contact Info) Description 11/13/2025 9:30 AM EDT Office Visit [facility] ADULT DENTAL [address] [place] [address] Con Therese [address] [place] [address] Health Maintenance Due Date Last Done Comments [...] 01/14/2022, 09/09/2005 COVID-19 Vaccine ( - season) 2025 12/07/2021, 06/10/2021, 10/21/2020, Additional history exists Influenza Vaccine (#1) 2025 , 04/15/2023, 05/06/2022, Additional history exists Dental Oral Exam 11/08/2025 05/09/2025, 09/2024, 12/20/2023 Dental Prophylaxis 11/08/2025 05/09/2025, 0 10/25/2024, 12/20/2023 DTaP/Tdap/Td Vaccines (3 - Td or Tdap) 12/30/2025 12/31/2015, 04/21/2010, 04/08/1997 Tobacco Screening 05/09/2026 05/09/2025 Dental X-Ray: Bitewings 05/10/2026 05/09/20 25, 10/25/2024, 12/20/2023 Dental X-Ray: Full Mouth 05/10/2028 05/09/2025, 12/24 Hepatitis B Vaccines Completed 10/31/2008, 03/28/2008, 02/23/2008 [...] Procedure Name Priority Date/Time Associated Diagnosis Comments PERIODIC ORAL EVALUATION - ESTABLISHED PATIENT Routine 05/09/2025 9:30 AM EDT TOPICAL APPLICATION OF FLUORIDE VARNISH Routine 05/09/2025 9:30 AM EDT Localized gingival recession Excessive attrition of teeth, limited to enamel INTRAORAL - COMPLETE SERIES OF RADIOGRAPHIC IMAGES Routine 05/09/2025 9:30 AM EDT Localized gingival recession Missing teeth, acquired Extruded tooth Excessive attrition of teeth, limited to enamel CASE PRESENTATION, DETAILED AND EXTENSIVE TREATMENT PLANNING Routine 05/09/2025 9:30 AM EDT Localized gingival recession Missing teeth, acquired Extruded tooth Dental plaque Excessive attrition of teeth, limited to enamel ORAL HYGIENE INSTRUCTIONS Routine 05/09/2025 9:30 AM EDT Localized gingival recession Missing teeth, acquired Extruded tooth Dental plaque Excessive attrition of teeth, limited to enamel PROPHYLAXIS - ADULT Routine 05/09/2025 9 :30 AM EDT Dental plaque from Last 3 Months Insurance [facility] [place] STAND ADULT DENTAL [facility]
--- OUTSIDE RECORDS SUMMARY | 2025-05-27 11:00 | XMS_ITS | Clinical Summary ---
Author Organization [facility] Address [address] [place] [address] Phone Care Team Providers Care Medical Esthetician Name Role Phone Viviana Guaman MD Primary Care Provider [phone] Allergies No known active allergies Medications albuterol [...] time each day. 1 each 5 Active albuterol HFA (Ventolin HFA) 90 mcg/actuation inhaler Inhale 2 puffs by mouth every 6 (six) hours if needed for wheezing. 18 g 11 5 05/01/20 26 Active Active Problems Problem Noted Date Diagnosed Date Pulmonary emphysema ([facility] V24, [facility] V28) 0 01/16/2025 GERD (gastroesophageal reflux disease) 5 Localized gingival recession 10/25/2024 Ill-fitting dentures 01/05/2024 Dental plaque 12/20/2023 Excessive attrition of teeth, limited to enamel 12/20/2023 Extruded tooth 12/20/2023 Partial edentulism 12/20/2023 Hyperlipidemia 11/03/2012 Osteoarthritis of knee 05/19/2012 Asthma 12/17/2011 Encounters Date Type Department Care Team Description 05/01/2025 9:00 AM EDT Office Visit Pulmonology - [address] [place] [address] Jeannette Jenkins MD Pulmonary emphysema ([facility] V24, [facility] V28) (Primary Dx); Gastroesophageal reflux disease without esophagitis from Last 3 Months Social History Tobacco Use Types Packs/Day Years Used Date Smoking Tobacco: Never Passive Smoke Exposure: Never Smokeless Tobacco: Never Tobacco Cessation:Counseling Given: Not Answered Comments Unknown Sex and Gender Information Value Date Recorded Sex Assigned at Female 09/28/2024 10:03 AM EST Legal Sex Female 4:51 AM EST Gender Identity Female 09/28/2024 10:03 AM EST Sexual Orientation Straight 09/28/2024 10 :03 AM EST Obstetrics History Last Filed Vital Signs Vital Sign Reading Time Taken Comments Blood Pressure 133/68 05/01/2025 9:01 AM EDT Pulse 63 05/01/2025 9:01 AM EDT Temperature 36.1 C (97 F) 05/01/2025 9:01 AM EDT Respiratory Rate 20 05/01/2025 9:01 AM EDT Oxygen Saturation 98% 05/01/2025 9:01 AM EDT Inhaled Oxygen Concentration - - Weight 65.8 kg (145 lb) 05/01/2025 9:01 AM EDT Height 144.8 cm (4' 9 ) 05/01/2025 9:01 AM EDT Body Mass Index 31.38 05/01/2025 9:01 AM EDT Plan of Treatment Upcoming Encounters Date Type Department Care Team (Late st Contact Info) Description 08/01/2025 9:30 AM EST Office Visit Pulmonology - [address] [place] [phone] Jeannette Jenkins MD [address] [place] [phone] Health Maintenance Due Date Last Done Comments Breast Cancer Screening 1955 Colorectal Cancer Screening: Colonoscopy 1955 RSV Immunization Adult Patients (1 - Risk 50-74 years 1-dose series) 2005 Pneumococcal Vaccine: 50+ Years (2 of 2 - PCV) 01/14/2023 01/14/2022, 09/09/2005 Depression Screening 07/25/2024 Cholesterol Screening (Lipid Panel) 09/06/2024 Falls Risk Assessment 09/06/2024 Hepatitis C Screening 09/06/2024 Medicare Annual Wellness Visit 09/06/2024 Osteoporosis Screening (Bone Density Screening) 09/06/2024 Social Influencers of Health Screening 09/06/2024 COVID-19 Vaccine ( season) 2025 12/07/2021, 06/10/2021, 10/21/2020, Additional history exists Influenza Vaccine (#1) 2025 4, 04/15/2023, 05/06/2022, [...] ID:[id number] Group ID:[id number] Type:Not on file Address: [place] [address] [place] [phone] Care Teams Medical Esthetician Relationship Specialty Start Date End Date Viviana Guaman MD [address] [place] [address] , [address] [employer] [facility] D/B/A: [facility] [place], [place] PCP - General Internal Medicine 09/28/24
== END 2025-05-27 10:21 | disposition home or self-care (01) ==
LOC: HO.HMCH 09:37
PROVIDERS: PCP Internal Medicine; Visit Provider Internal Medicine
DX: K29.40 Chronic atrophic gastritis without bleeding (principal); G62.9 Polyneuropathy, unspecified; J43.1 Panlobular emphysema; E78.00 Pure hypercholesterolemia, unspecified; Z23 Encounter for immunization

== ENCOUNTER → 2025-05-27 09:36 | Outpatient (BNVA) | payer OTHER, SELFPAY | PROVIDERS: PCP Internal Medicine; Visit Provider Internal Medicine | DX: J43.1 Panlobular emphysema (principal); I10 Essential (primary) hypertension; K29.40 Chronic atrophic gastritis without bleeding; G62.9 Polyneuropathy, unspecified; E78.00 Pure hypercholesterolemia, unspecified; Z23 Encounter for immunization; Z79.899 Other long term (current) drug therapy | CPT/HCPCS: 90471; 90656; 99212 ==

== ENCOUNTER 2025-06-05 10:02 | Outpatient (REF) | payer OTHER, SELFPAY ==
[2025-06-05 14:48] LABS: Ferritin 12 ng/mL (10-250)
== END 2025-06-05 10:03 | disposition home or self-care (01) ==
LOC: HO.HKASLDS 10:02
PROVIDERS: PCP Internal Medicine; Visit Provider Psychiatry & Neurology Neurology
DX: G25.81 Restless legs syndrome (principal); G47.10 Hypersomnia, unspecified; R06.83 Snoring; Z13.0 Encounter for screening for diseases of the blood and blood-forming organs and certain disorders involving the immune mechanism; Z79.899 Other long term (current) drug therapy
CPT/HCPCS: 36415; 82728; 83090; 99202

== ENCOUNTER 2025-06-05 10:02 | Outpatient (AMB) | payer OTHER, SELFPAY ==
--- NOTE | 2025-06-05 10:07 | MHC.OFFVIS ---
Vital Signs 06/05/25 10:09 Height 4 ft 9 in Weight 148 lb 6 oz BMI 32.1 BP 138/72 Blood Pressure Location Rt brachial Position Sitting Pulse 62 Pulse Source Auscultation Pulse Oximetry (%) 96 Oxygen Delivery Method Room Air Intake Visit Reasons: INP-Paresthesia of skin (CONF.) Intake Note: INP - Paresthesia of skin Political Science Research Assistant Required: No Accompanied by: Self / Same As Patient Allergies lobster Allergy (Mild, Verified 06/05/25 10:13) Vomiting Medication List - Last Reconciled 06/05/25 by Cheryl Figueredo MD albuterol sulfate 2.5 mg inhalation TID albuterol sulfate 90 mcg/actuation 2 puffs inhalation Q4H PRN atorvastatin 40 mg PO DAILY 90 days calcium carbonate (Calcium 600) 600 mg PO BID 30 days cane As directed cholecalciferol (vitamin D3) 25 mcg PO DAILY 90 days dorzolamide 2% 1 drp ophthalmic (eye) BID esomeprazole magnesium 20 mg PO DAILY bmstokiwnej-lecglbxoh-pekunxhd 200-62.5-25 mcg (Trelegy Ellipta) 1 ea inhalation DAILY gabapentin 300 mg PO BEDTIME 90 days latanoprost 0.005% 1 drp ophthalmic (eye) BEDTIME loratadine 10 mg PO DAILY PRN 90 days montelukast 10 mg PO DAILY naproxen 500 mg PO BID HPI Comments Details: 70y/o female comes for evaluation of abnormal in her LE. She has been having these symptoms for 1-2 years . she describes as creepy crawly sensation, tightening in nadine feet worse with rest and at night time. she was given gabapentin and it is helping her to sleep. The symptoms are worse when she puts her feet in her bed. she also has twitching of her legs . If she does not use gabapentin her has trouble with sleeping.Her symptoms are better when she is moving . No numbness , back or neck pain.she has trouble with sleeping both maintenance and initiation, hypersomnia. [facility] Medical History Glaucoma Asthma Emphysema lung GERD (gastroesophageal reflux disease) KEI (mycobacterium avium-intracellulare) Pernicious anemia Pure hypercholesterolemia Surgical History Hx of colonoscopy History of esophagogastroduodenoscopy (EGD) Hx of tubal ligation History of section History of cholecystectomy History of tonsillectomy Family History Father Diabetes Hypertension Stroke Mother Diabetes Hypertension Breast cancer, Onset Age: 69 Status post mastectomy Son No problems noted. Family/Other FH: mental illness Social History Household Members: None Household Members Other:: Housing: Apartment Are you a primary director of medicare to a significant other at home: No Do you presently have visiting nurse or other home services: No Alcohol intake: never Patient Tobacco Use Status: Never used Tobacco e-Cigarette/Vaping Use: Never Used Second Hand Smoke Exposure: No service: No Current occupational status: retired Cognitive needs: No Hearing needs: No Vision needs: Yes (Glasses) Female Reproductive History Menstrual Age of Menarche: 12 Physical Exam Vital Signs: Last Vital Signs Pulse 62 06/05/25 10:09 BP 138/72 06/05/25 10:09 Pulse Ox 96 06/05/25 10:09 Oxygen Delivery Method Room Air 06/05/25 10:09 BMI result Body Mass Index 32.1 Const General: cooperative, healthy appearing, comfortable and no acute distress Nutritional Appearance: overweight Orientation/consciousness: patient oriented x3 Eyes Pupils: Equal, round and reactive pupils present Neuro General: patient oriented x3, gait normal, tone normal, moves all extremities and no focal motor deficits Cranial nerves: Yes Facial sensation intact/muscles of mastication intact, Yes Equal, round and reactive pupils present, Yes Bilaterally intact EOM present, Yes Nystagmus not present, Yes Normal facial strength present, Yes Midline tongue present, Yes Symmetric palate elevation present and Yes Ability to bilaterally elevate shoulders present Cognition (Neuro): normal cognition Gait exam (Neuro): Antalgic gait present Motor exam (neuro): 5/5 motor strength present throughout and Normal motor muscle tone present throughout Deep tendon reflexes (DTR's): Right triceps reflex intensity grade: 1+, Left triceps reflex intensity grade: 1+, Rt Biceps (C5, C6): 1+, Left biceps reflex intensity grade: 1+, Right brachioradialis reflex intensity grade: 1+, Left brachioradialis reflex intensity grade: 1+, Right patellar reflex intensity grade: 1+ and Left patellar reflex intensity grade: 1+ Coordination: lyxcqf-wb-bxfa test normal Assessment & Plan Assessment & Plan (1) Restless legs syndrome (RLS): Code(s): G25.81 - Restless legs syndrome Category: Medical Plan: abnormal sensation in legs worse at night and at rest with possible Periodic limb movements (2) Hypersomnia: Code(s): G47.10 - Hypersomnia, unspecified Category: Medical (3) Snoring: Code(s): R06.83 - Snoring Category: Medical Plan She is doing well on gabapentin 300mg qhs - i suggested to continue I will evaluate her with sleep study to r/o sleep apnea. Labs- ferritin B12 Vit D homcystiene CBC CMP Orders: Orders Homocysteine Today G25.81 - Restless legs syndrome Ferritin Today G25.81 - Restless legs syndrome RT home sleep study Today G47.10 - Hypersomnia, unspecified, R06.83 - Snoring Coding Level of Care Code New Pt Level 4 (84820) Complex EM visit Add On G2211 Diagnoses Restless legs syndrome (RLS) G25.81 Hypersomnia G47.10 Snoring R06.83
[2025-06-05 10:09] VITALS: BP 138/72; PULSE 62; O2SAT 96; BMI 32.1
--- OUTSIDE RECORDS SUMMARY | 2025-06-05 11:46 | XMS_ITS | Clinical Summary ---
Author Organization [employer] Address [address] [facility] [address]t [place] [address] Care Team Providers Care Alteration Specialist Name Role Phone Unavailable Primary Care [...] mouth at bed time. 4 Active Creon 7357-6294 units capsule TOME 1 C PSULA POR [...] Description 05/09/2025 9:30 AM EDT Office Visit [facility] ADULT DENTAL [address] [place] [address] Therese Andujar Localized gingival recession (Primary Dx); [...] Description 11/13/2025 9:30 AM EDT Office Visit [facility] ADULT DENTAL [address] [place] [address] Con Therese [address] [place] [address] Health Maintenance Due Date Last Done Comments [...] Months Insurance [facility] STAND ADULT DENTAL [facility]
--- OUTSIDE RECORDS SUMMARY | 2025-06-05 11:46 | XMS_ITS | Encounter Summary ---
Author Organization [employer] Address [address] [facility] 7t [place] [address] Care Team Providers Care Advanced Practice Psychiatric Nurse Name Role Phone Unavailable Primary Care Provider Unavailabl e Encounter Details Date Type Department Care Team (Latest Contact Info) Description 10/19/[address] [facility] CONVERSIONS Dental, Provider, DDS Social History [...] Description 11/13/2025 9:30 AM EDT Office Visit [facility] ADULT DENTAL [address] [place] [address] Mario Andujararis [address] [place] [address] documented as of this encounter Visit Diagnoses Not on filedocumented in this encounter
--- OUTSIDE RECORDS SUMMARY | 2025-06-05 11:46 | XMS_ITS | Encounter Summary ---
Author Organization [employer] Address [address] [facility] 7t [place] [address] Care Team Providers Care Coil Finisher Name Role Phone Unavailable Primary Care Provider Unavailabl e Encounter Details Date Type Department Care Team (Latest Contact Info) Description 06/02/[address] [facility] CONVERSIONS Dental, Provider, DDS Social History [...] 11/13/2025 9:30 AM EDT Office Visit [facility] ADULT DENTAL [address] [place] [address] Con Therese [address] [place] [address] documented as of this encounter Visit Diagnoses Not on filedocumented in this encounter
--- OUTSIDE RECORDS SUMMARY | 2025-06-05 11:46 | XMS_ITS | Clinical Summary ---
Author Organization [facility] Address [address] [place] [address] Phone Care Team Providers Care Embosser Operator Name Role Phone Viviana Guaman MD Primary Care Provider [phone] Allergies No known active allergies Medications albuterol [...] Problem Noted Date Diagnosed Date Pulmonary emphysema ([facility] V24, [facility] V28) 0 01/16/2025 GERD (gastroesophageal reflux disease) 5 Localized gingival recession 10/25/2024 Ill-fitting dentures 01/05/2024 Dental plaque 12/20/2023 Excessive attrition of teeth, limited to enamel 12/20/2023 Extruded tooth 12/20/2023 Partial edentulism 12/20/2023 Hyperlipidemia 11/03/2012 Osteoarthritis of knee 05/19/2012 Asthma 12/17/2011 Encounters Date Type Department Care Team Description 05/01/2025 9:00 AM EDT Office Visit Pulmonology - [address] [place] [address] Jeannette Jenkins MD Pulmonary emphysema ([facility] V24, [facility] V28) (Primary Dx); Gastroesophageal reflux [...] 9:30 AM EST Office Visit Pulmonology - [address] [place] [phone] Jeannette Jenkins MD [address] [place] [phone] Health Maintenance Due Date Last Done Comments [...] ID:[id number] Group ID:SCO Type:Not on file Address: [place] [address] [address] [phone] Care Teams Embosser Operator Relationship Specialty Start Date End Date Viviana Guaman MD [address] [place] [address] , [address] [facility] D/B/A: [facility] [place], [place] PCP - General Internal Medicine 09/28/24
== END 2025-06-05 14:42 | disposition home or self-care (01) ==
LOC: HO.HSMS 10:03
PROVIDERS: PCP Internal Medicine; Visit Provider Psychiatry & Neurology Neurology
DX: G25.81 Restless legs syndrome (principal); G47.10 Hypersomnia, unspecified; R06.83 Snoring
CPT/HCPCS: 99204; G2211

== ENCOUNTER 2025-06-25 08:53 | Outpatient (REF) | payer OTHER, SELFPAY ==
--- NOTE | 2025-06-25 08:55 | EMG_ITS ---
Chief complaint: Numbness and tingling in legs Referred by: Viviana Guaman MD Procedure done: NCS and EMG of bilateral lower extremities Bilateral peroneal and tibial motor studies were performed. Bilateral superficial peroneal and sural sensory studies were performed, median and lateral mixed plantars sensory studies were performed and paraspinal what tested with a needle. Tibial H reflexes were obtained. Finding: Left peroneal motor amplitude was significantly reduced especially across the knee. Right peroneal motor studies revealed mild slowing across the knee. Left superficial peroneal amplitude was significantly reduced. Mild reduction of amplitude was noted with plantars sensory studies in feet. Impression: 1. 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
--- OUTSIDE RECORDS SUMMARY | 2025-06-25 09:10 | XMS_ITS | Encounter Summary ---
Author Organization [employer] Address [address] [facility] 7t [place] [address] Care Team Providers Care Automobile Rental Clerk Name Role Phone Unavailable Primary Care Provider Unavailabl e Encounter Details Date Type Department Care Team (Latest Contact Info) Description 10/19/2018 Abstract [facility] CONVERSIONS Dental, Provider, DDS Social History Tobacco [...] Description 11/13/2025 9:30 AM EDT Office Visit [facility] ADULT DENTAL [address] [place] [address] Mario Andujararis [address] [place] [address] documented as of this encounter Visit Diagnoses Not on filedocumented in this encounter
--- OUTSIDE RECORDS SUMMARY | 2025-06-25 09:10 | XMS_ITS | Clinical Summary ---
Author Organization [facility] Address [address] [place] [address] Phone Care Team Providers Care Nba Player Name Role Phone Viviana Guaman MD Primary Care Provider [phone] Allergies No known active allergies Medications albuterol [...] Problem Noted Date Diagnosed Date Pulmonary emphysema ([facility] V24, [facility] V28) 0 01/16/2025 GERD (gastroesophageal reflux disease) 5 Localized gingival recession 10/25/2024 Ill-fitting dentures 01/05/2024 Dental plaque 12/20/2023 Excessive attrition of teeth, limited to enamel 12/20/2023 Extruded tooth 12/20/2023 Partial edentulism 12/20/2023 Hyperlipidemia 11/03/2012 Osteoarthritis of knee 05/19/2012 Asthma 12/17/2011 Encounters Date Type Department Care Team Description 05/01/2025 9:00 AM EDT Office Visit Pulmonology - [address] [place] [address] Jeannette Jenkins MD Pulmonary emphysema ([facility] V24, [facility] V28) (Primary Dx); Gastroesophageal reflux disease without [...] 9:30 AM EST Office Visit Pulmonology - [address] [place] [phone] Jeannette Jenkins MD [address] [place] [phone] Health Maintenance Due Date Last Done Comments [...] ID:[id number] Group ID:SCO Type:Not on file Address: [place] [address] [place] [phone] Care Teams Nba Player Relationship Specialty Start Date End Date Viviana Guaman MD [address] [place] [address] , [address] [facility] D/B/A: [facility] [place], [place] PCP - General Internal Medicine 09/28/24
--- OUTSIDE RECORDS SUMMARY | 2025-06-25 09:10 | XMS_ITS | Clinical Summary ---
Author Organization [employer] Address [address] [facility] 7t [place] [address] Care Team Providers Care Metal Bumper Name Role Phone Unavailable Primary Care Provider [...] mouth at bed time. 4 Active Creon 1867-9068 units capsule TOME 1 C PSULA POR [...] Description 05/09/2025 9:30 AM EDT Office Visit [facility] ADULT DENTAL [address] [place] [address] Therese Andujar Localized gingival recession (Primary Dx); [...] Description 11/13/2025 9:30 AM EDT Office Visit [facility] ADULT DENTAL [address] [place] [address] Con Therese [address] [place] [address] Health Maintenance Due Date Last Done Comments CT Colonography 1955 Colonoscopy 1955 Colorectal Cancer Screening 1955 Depression Screening 1955 FIT DNA/Cologuard 1955 FIT 1955 FOBT 1955 SDOH Screening 1955 Sigmoidoscopy 1955 Alcohol/Substance Use Screening 1967 Hepatitis C Screening 1973 Mammogram 1995 RSV Patients and Patients Aged 60 years or older (1 - Risk 50-74 years 1-dose series) [...] Months Insurance [facility] STAND ADULT DENTAL [facility]
--- OUTSIDE RECORDS SUMMARY | 2025-06-25 09:10 | XMS_ITS | Encounter Summary ---
Author Organization [employer] Address [address] [facility] 7t [place] [address] Care Team Providers Care Vp Packaging Name Role Phone Unavailable Primary Care Provider Unavailabl e Encounter Details Date Type Department Care Team (Latest Contact Info) Description 06/02/2021 Abstract [facility] CONVERSIONS Dental, Provider, DDS [...] Office Visit [facility] ADULT DENTAL [address] [place] [address] Con Therese [address] [place] [address] documented as of this encounter Visit Diagnoses Not on filedocumented in this encounter
== END 2025-06-25 08:54 | disposition home or self-care (01) ==
LOC: HO.NEURO 08:53
PROVIDERS: PCP Internal Medicine; Visit Provider Internal Medicine
DX: R20.2 Paresthesia of skin (principal); R20.0 Anesthesia of skin
CPT/HCPCS: 95886; 95913

== ENCOUNTER → 2025-06-25 08:55 | Outpatient (BNV) | payer OTHER, SELFPAY | PROVIDERS: PCP Internal Medicine; Visit Provider Psychiatry & Neurology Neurology | DX: R20.2 Paresthesia of skin (principal); G57.32 Lesion of lateral popliteal nerve, left lower limb; G57.31 Lesion of lateral popliteal nerve, right lower limb | CPT/HCPCS: 95886; 95912 ==